=== PATIENT | female | born 1940 | race Caucasian/White ===

== ENCOUNTER → 2023-09-03 12:34 | Outpatient (REF) | payer OTHER, SELFPAY | LOC: WOUND 12:34 | PROVIDERS: ATTENDING PHYSICIAN Surgery; REFERRING PHYSICIAN Family Medicine | DX: S81.812A Laceration without foreign body, left lower leg, initial encounter (principal); L97.822 Non-pressure chronic ulcer of other part of left lower leg with fat layer exposed; J44.9 Chronic obstructive pulmonary disease, unspecified; Z87.891 Personal history of nicotine dependence; R06.89 Other abnormalities of breathing; I10 Essential (primary) hypertension; J47.9 Bronchiectasis, uncomplicated; X58.XXXA Exposure to other specified factors, initial encounter | CPT/HCPCS: 11042; 97597; 99203 ==

== ENCOUNTER → 2023-09-10 08:57 | Outpatient (REF) | payer OTHER, SELFPAY | LOC: WOUND 08:57 | PROVIDERS: ATTENDING PHYSICIAN Surgery; REFERRING PHYSICIAN Family Medicine | DX: L97.822 Non-pressure chronic ulcer of other part of left lower leg with fat layer exposed (principal); S81.812S Laceration without foreign body, left lower leg, sequela; X58.XXXS Exposure to other specified factors, sequela | CPT/HCPCS: 11042 ==

== ENCOUNTER → 2023-09-17 10:35 | Outpatient (REF) | payer OTHER, SELFPAY | LOC: WOUND 10:35 | PROVIDERS: ATTENDING PHYSICIAN Surgery; REFERRING PHYSICIAN Family Medicine | DX: S81.812A Laceration without foreign body, left lower leg, initial encounter (principal); L97.822 Non-pressure chronic ulcer of other part of left lower leg with fat layer exposed; J44.9 Chronic obstructive pulmonary disease, unspecified; Z87.891 Personal history of nicotine dependence; R06.89 Other abnormalities of breathing; I10 Essential (primary) hypertension; J47.9 Bronchiectasis, uncomplicated; X58.XXXA Exposure to other specified factors, initial encounter | CPT/HCPCS: 97597 ==

== ENCOUNTER → 2023-09-20 08:38 | Outpatient (REF) | payer OTHER, SELFPAY | LOC: HWRAD 08:38 | PROVIDERS: ATTENDING PHYSICIAN Nurse Practitioner; FAMILY PHYSICIAN Family Medicine | DX: R82.998 Other abnormal findings in urine (principal) | CPT/HCPCS: 76770 ==

== ENCOUNTER → 2023-09-25 11:55 | Outpatient (REF) | payer OTHER, SELFPAY | LOC: WOUND 11:55 | PROVIDERS: ATTENDING PHYSICIAN Surgery; FAMILY PHYSICIAN Family Medicine | DX: S81.812S Laceration without foreign body, left lower leg, sequela (principal); L97.822 Non-pressure chronic ulcer of other part of left lower leg with fat layer exposed; J44.9 Chronic obstructive pulmonary disease, unspecified; Z87.891 Personal history of nicotine dependence; R06.89 Other abnormalities of breathing; I10 Essential (primary) hypertension; J47.9 Bronchiectasis, uncomplicated | CPT/HCPCS: 99211 ==

== ENCOUNTER → 2023-10-16 13:29 | Outpatient (REF) | payer OTHER, SELFPAY | LOC: RAD 13:29 | PROVIDERS: ATTENDING PHYSICIAN Family Medicine | DX: U07.1 COVID-19 (principal); R06.81 Apnea, not elsewhere classified | CPT/HCPCS: 71046 ==

== ENCOUNTER 2023-10-16 15:21 | Emergency (ER) | payer OTHER, SELFPAY ==
[2023-10-16 15:23] VITALS: BP 181/109
[2023-10-16 15:48] LABS: % Basophils 0.3 % (0-2); % Eosinophils 0.5 % (0-6); % Immature Granulocytes 1.6 % (0-0.5); % Lymphocytes 7.2 % (20.5-51.1); % Neutrophils 78.4 % (42.2-75.2); Absolute Eosinophils 0.1 10^3/uL (0-0.7); Absolute Immature Granulocytes 0.2 10^3/uL (0-0.05); Absolute Lymphocytes 0.7 10^3/uL (1.2-3.4); Absolute Monocytes 1.2 10^3/uL (0.1-0.6); Hematocrit 42.8 % (37.0-47.0); Hemoglobin 14.9 g/dL (12.0-16.0); Mean Corp Hgb Conc. 34.8 g/dL (33.0-37.0); Mean Corpuscular Volume 83.3 fL (81.0-99.0); Mean Platelet Volume 8.5 fL (7.4-10.4); Nucleated Red Blood Cells % 0 %; Platelet Count 184 10^3/uL (130-400); Red Blood Cell Count 5.14 10^6/uL (4.20-5.40); Red Cell Dist. Width 13.5 % (11.5-14.5); White Blood Cell Count 10.1 10^3/uL (4.8-10.8)
[2023-10-16 16:01] LABS: ALT (SGPT) 28 U/L (0-35); AST (SGOT) 37 U/L (14-36); Albumin 4.3 g/dl (3.5-5.0); Alkaline Phosphatase 92 U/L (38-126); Blood Urea Nitrogen 20 mg/dl (7-17); Calcium 9.3 mg/dl (8.4-10.2); Carbon Dioxide 26 mmol/L (22-30); Chloride 100 mmol/L (98-107); Glucose 91 mg/dl (70-99); Potassium 4.2 mmol/L (3.5-5.1); Sodium 131 mmol/L (135-145); Total Bilirubin 0.9 mg/dl (0.2-1.3); Total Protein 6.8 g/dl (6.3-8.2); eGFR > 60.00
[2023-10-16 17:58] VITALS: BP 117/82; BMI 20.4
[2023-10-16 19:00] VITALS: BP 117/87
--- NOTE | 2023-10-16 19:05 | ED.GENMED ---
History of Present Illness
General
Chief Complaint: Breathing Problem
Source: patient and family (Daughter)
Exam Limitations: none
Time Seen by Provider: 10/16/23 18:48
Nursing documentation reviewed up to this point in time: agreed with
Travel History
Have you had any contact with someone who has COVID-19?: Yes
Comment: self
Do you have any symptoms of coronavirus? Fever > 100 degrees, chills, cough, shortness of breath, sore throat, loss of taste or smell, muscle aches, or headache?: Yes
Symptoms:: cough, shortness of breath
History of Present Illness
History of Present Illness:
83-year-old female with a past medical history of COPD, hypertension who presents to the emergency room for evaluation of scalp pain. Patient reports that for the past few days she has noticed some pain in the right side of her scalp. She has
noticed some slight redness on the outside of her scalp as well. She says that she went to her primary care physician to be evaluated and was told that she might be developing shingles. She was prescribed prednisone, gabapentin, Valtrex. While at
her primary care physician she mentioned that she has been fatigued and had mild headache over the past few days. She was tested for COVID and this was positive. Apparently after testing positive they checked her vital signs and she was noted to
have 'irregular heartbeat' and from what I can gather there was some concern about potentially a blood clot for this reason. Meanwhile aside from fatigue and mild headache which patient feels is more likely related to her scalp pain she has not had
any other symptoms including chest pain or shortness of breath at any point in time. She has a chronic cough related to her COPD which has not changed at all she says. She denies palpitations. She denies any other complaints today.
Past History
Past History
ED Past Medical History: COPD
ED Past Surgical History: None and Other (Tubal ligation)
Patient has exhibited threatening behavior?: No
PSI?: No
Social History
Tobacco: Former smoker
Personal: Single
Living: alone
Family History
Family History: Negative Diabetes or CAD
Review of Systems
Review of Systems
All Other Systems: ROS reviewed and negative except as documented in HPI and ROS
Constitutional: Reports fatigue; Denies fever or chills
EENT: Reports other (Scalp pain); Denies sore throat or runny nose
Respiratory: Reports cough (Chronic); Denies trouble breathing
Cardiac: Denies chest pain or palpitations
ABD/GI: Denies abdominal pain, nausea or vomiting
: Denies dysuria, frequency or flank pain
Musculoskeletal: Denies neck pain or back pain
Neurological: Reports headache; Denies weakness or numbness
Phy Exam
Physical Exam
Physical Exam:
General: Awake, alert, oriented x3; no acute distress
Head: Normocephalic, atraumatic; she does have some erythema and slight tenderness of the right side of the scalp but no clear vesicular lesions
Eyes: Conjunctiva normal, EOMI, pupils equal round and reactive to light bilaterally
Throat: Airway intact, handling secretions
Neck: Trachea midline, supple without meningismus
Lungs: Clear to auscultation bilaterally, no wheezing, rales, rhonchi
Heart: Regular rate and rhythm with occasional ectopy, no murmurs, gallops, or rubs�tachycardia in triage noted normal on my assessment
Abd: Soft, non distended, nontender
Neuro: Cranial nerves grossly intact, speech fluid
Skin: no rash
Extremities: No edema in extremities, equal pulses in all extremities
Scores
Heart Failure Risk
Heart Failure Risk Score: Not Applicable
Heart Score for Chest Pain Patients
STEMI patient?: Not applicable
Withdrawal Assessment of Alcohol
Withdrawal Assessment Completed?: Not applicable
Course
Orders/Labs/Results
Orders:
Orders
10/16/23 15:29
Electrocardiogram (*1) Urgent
Reason for Study: Abnormal EKG
EKG- Treatment ONCE
10/16/23 15:40
CBC/With Diff [Complete Blood Count/With Diff] Urgent
CMP [Comprehensive Metabolic Panel] Urgent
Abnormal Lab Results
10/16/23
15:40
Abs Immat Gran (auto) 0.2 H 10^3/uL
(0-0.05)
Absolute Neuts (auto) 8.0 H 10^3/uL
(1.4-6.5)
Absolute Lymphs (auto) 0.7 L 10^3/uL
(1.2-3.4)
Absolute Monos (auto) 1.2 H 10^3/uL
(0.1-0.6)
Immature Gran % 1.6 H %
(0-0.5)
Neutrophils % 78.4 H %
(42.2-75.2)
Lymphocytes % 7.2 L %
(20.5-51.1)
Monocytes % 12.0 H %
(1.7-9.3)
Sodium 131 L mmol/L
(135-145)
BUN 20 H mg/dl
(7-17)
AST 37 H U/L
(14-36)
10/16/23 15:40
10/16/23 15:40
Vital Signs
Temp: 36.7 C
Pulse: 86
Resp Rate: 18
Initial and Last Documented VS:
Initial Vital Signs
Temp Pulse Resp BP Pulse Ox
36.6 C 110 18 181/109 93
10/16/23 15:23 10/16/23 15:23 10/16/23 15:23 10/16/23 15:23 10/16/23 15:23
Last Documented Vital Signs
Temp Pulse Resp BP Pulse Ox
36.7 C 86 18 117/87 91
10/16/23 19:05 10/16/23 19:05 10/16/23 19:05 10/16/23 19:00 10/16/23 19:00
MDM/Problems Addressed
Differential Diagnosis Includes:
Scalp pain: Early shingles, dry skin, hyperesthesia related to viral infection or fever
MDM/Problems Addressed:
83-year-old female presents to the emergency room for evaluation of scalp pain; she was seen by her primary told that she might have early shingles and prescribed appropriate treatment. While she was there she was tested for COVID due to fatigue
and this was positive and there was some concern about an irregular heartbeat which prompted referral to the emergency room for assessment. Patient was hypertensive and tachycardic in triage 'because my doctor told me I was going to from blood
clots.' Her vital signs are completely normal on my assessment. She has no chest pain or shortness of breath. Exam as above. She had lab work sent in triage including a CBC which was unremarkable, CMP which showed mild hyponatremia. Her EKG
shows sinus tachycardia. On a monitoring coordinator on my assessment she is in a sinus rhythm with a rate in the 80s and occasional PACs. Regarding her scalp pain which she says is her only significant complaint: She does have some slight erythema in
the area of concern she has had shingles many times certainly this could be early shingles although there are no clear vesicles. I do think it would be appropriate to treat with Valtrex and use gabapentin as needed for pain. She feels very
comfortable with this treatment plan and it has already been prescribed by her primary doctor. Regarding positive COVID test: Patient has been fatigued at least for 3 days she is minimally symptomatic; at the present no clear indication for
Paxlovid. Her tachycardia could be related to stress/anxiety on initial presentation�it normalized by my assessment. Infection could also be driving some increased heart rate, as well as her as-needed albuterol use. She has no signs or symptoms to
suggest DVT or PE and I do not think any further emergent testing for these diagnoses is indicated at this point in time. I think she is stable for discharge will have her follow-up with her primary doctor to have her scalp reassessed. We did
speak about return precautions including any dizziness, palpitations, chest pain, shortness of breath or any other concerning symptoms. She feels very happy with this plan and in fact requesting discharge at this point. All questions answered.
Chronic conditions affecting care:
COPD
*Pulse Oximetry
Patient hypoxic: no
*EKG
Interpreted by ED Provider?: Yes
Heart Rate: 110
Rate: tachycardiac
Rhythm: sinus tachycardia
Walker: normal axis
Interval: normal interval
QRS Pattern: normal QRS
Ischemia: no ischemia
*Critical Care Note
Total Time (30-74mins, 75-104mins- exclusive of procedures): Not Applicable
Data Reviewed
Source: patient and family (Daughter)
Further Testing Considered But Not Given:
Considered D-dimer but in my judgment no testing for PE indicated that she has no signs or symptoms of this diagnosis
ED Attending Note
-
Portions of this chart may have been created with voice recognition software.� Occasional wrong word or��sound alike� substitutions may have occurred due to the inherent limitations of voice recognition software.
Discharge Plan
Departure
Patient Disposition: Home (Routine Discharge)
Date of Disposition: 10/16/23
Time of Disposition: 19:05
Patient with high blood pressure during this ER visit?: Yes
Discharge Problem:
COVID-19, Scalp pain
Instructions: COVID-19 ED
Prescriptions:
No Action
cephalexin 500 MG capsule
500 mg PO BID Qty: 10 1RF
sulfamethoxazole-trimethoprim 1 TABLET tablet
1 tab PO BID Qty: 10 1RF
furosemide [Lasix] 20 mg tablet
20 mg PO DAILY Qty: 10 1RF
Activity Restrictions/Additional Instructions:
Thank you for visiting the Emergency Department at [facility].
1. Please schedule a follow up appointment as directed. Call first thing tomorrow morning to make an appointment.
2. If indicated, please take your medications as instructed and indicated on discharge paperwork.
3. If any of your symptoms do not improve, or persist, or become more severe within 6-12 hours, please return to the emergency department for further care.
4. Please return to the emergency department if you develop a headache, neck pain/stiffness, fever greater than 100.4F, chest pain, shortness of breath, persistent nausea, vomiting, slurred speech, difficulty walking, numbness/tingling, weakness,
signs of infection or any other symptoms that are worrisome to you.
Please call [phone] if you have any questions.
Interventions
Interventions:
*Risk Screen - Suicide Last Done: 10/16/23 15:28
*General Assessment Last Done: 10/16/23 15:28
*Neglect/Abuse Screening Last Done: 10/16/23 17:59
ED- Fall Risk Assessment Last Done: 10/16/23 17:59
*ED COVID-19 Vaccine History Last Done: 10/16/23 15:28
*Nursing Disposition Last Done: 10/16/23 19:20
ED- Cardiac Assessment Last Done: 10/16/23 17:59
ED- Pulmonary Assessment Last Done: 10/16/23 17:59
Discharge Date and Time
Discharge Date/Time: 10/16/23 19:20
== END 2023-10-16 19:20 | disposition home or self-care (01) ==
LOC: EMR 15:21
PROVIDERS: Emergency Medicine; EMERGENCY PHYSICIAN Emergency Medicine; FAMILY PHYSICIAN Family Medicine
DX: U07.1 COVID-19 (principal); R51.9 Headache, unspecified; J44.9 Chronic obstructive pulmonary disease, unspecified; I10 Essential (primary) hypertension; Z87.891 Personal history of nicotine dependence; E87.1 Hypo-osmolality and hyponatremia
CPT/HCPCS: 99284; 80053; 85025; 93005

== ENCOUNTER 2024-02-16 22:15 | Emergency (ER) | payer OTHER, SELFPAY ==
[2024-02-16 22:18] VITALS: BP 168/118
--- NOTE | 2024-02-16 23:45 | ED.GENMED ---
History of Present Illness
<MALCOM Montague - Last Filed: 02/17/24 01:40>
General
Chief Complaint: Back Pain
Source: patient and family (daughter )
Time Seen by Provider: 02/16/24 23:45
Nursing documentation reviewed up to this point in time: agreed with
History of Present Illness
History of Present Illness:
83 year old female presents for evaluation of back pain. Pt is accompanied by her daughter, who notes that pt suffered a fall on 02/11 at approximately 1800. Pt was getting out of her car when she slipped and fell on loose gravel in a parking lot,
causing her to fall onto her sacrum/coccyx and lower back. She denies injury to her head. Pt was seen at urgent care on 02/12 where XR was performed. 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
fracture of the T12 vertebra. She was given a prescription for lidocaine patches as well as Naproxen 375 mg BID. These have not provided pain relief per pt. Pt then followed up with her PCP the following day on 02/13, where she was given a
prescription for cyclobenzaprine which has also not provided pain relief. Pt has a history of osteoporosis managed by her PCP. No history of falls. Pt has a walker and cane at home but has not been utilizing them.
Past History
<MALCOM Montague - Last Filed: 02/17/24 01:40>
Past History
ED Past Medical History: COPD
ED Past Surgical History: None and Other (Tubal ligation)
Patient has exhibited threatening behavior?: No
PSI?: No
Social History
Tobacco: Former smoker
Personal: Single
Living: alone
Family History
Family History: Negative Diabetes or CAD
Review of Systems
<MALCOM Montague - Last Filed: 02/17/24 01:40>
Review of Systems
Allergies reviewed?: Yes
Constitutional: Reports no symptoms
EENT: Reports no symptoms
Respiratory: Reports no symptoms
Cardiac: Reports no symptoms
ABD/GI: Reports no symptoms
: Reports no symptoms
Musculoskeletal: Reports back pain (low back)
Skin: Reports no symptoms
Neurological: Reports no symptoms
Endocrine: Reports no symptoms
Hematologic/Lymphatic: Reports no symptoms
Psychiatric: Reports no symptoms
Phy Exam
<MALCOM Montague - Last Filed: 02/17/24 01:40>
General Physical Exam
General Presentation: well appearing
General age: appears stated age
General Skin: warm
General Habitus: elderly
General Mental: alert
General Hydration: appears well hydrated
Cardiovascular Exam
Cardiovascular Exam: regular rate/rhythm
Pulmonary Exam
Pulmonary Exam: lungs clear and no respiratory distress
Neurological Exam
Neurological Exam: alert, oriented x3, no motor deficits and no sensory deficits
Musculoskeletal Exam
Musculoskeletal Exam: back pain, back tenderness (T12-L4 tenderness and tenderness of paraspinal musculature ), neuro vasc intact and other (pain with flexion and extension of lower thoracic and lumbar spine )
Course
<Robinson Aguirre [facility] - Last Filed: 02/17/24 01:40>
Orders/Labs/Results
Orders:
Orders
02/17/24 00:26
Hydrocodone 5/APAP 325 [Burket 5/325] 1 tablet PO NOW STA
Vital Signs
Initial and Last Documented VS:
Initial Vital Signs
Temp Pulse Resp BP Pulse Ox
98.8 F 84 24 168/118 98
02/16/24 22:18 02/16/24 22:18 02/16/24 22:18 02/16/24 22:18 02/16/24 22:18
Last Documented Vital Signs
Temp Pulse Resp BP Pulse Ox
98.8 F 84 24 168/118 98
02/16/24 22:18 02/16/24 22:18 02/16/24 22:18 02/16/24 22:18 02/16/24 22:18
<Namita Back DO - Last Filed: 02/17/24 02:00>
Orders/Labs/Results
Orders:
Orders
02/17/24 00:26
Hydrocodone 5/APAP 325 [Burket 5/325] 1 tablet PO NOW STA
Vital Signs
Initial and Last Documented VS:
Initial Vital Signs
Temp Pulse Resp BP Pulse Ox
98.8 F 84 24 168/118 98
02/16/24 22:18 02/16/24 22:18 02/16/24 22:18 02/16/24 22:18 02/16/24 22:18
Last Documented Vital Signs
Temp Pulse Resp BP Pulse Ox
98.8 F 84 24 168/118 98
02/16/24 22:18 02/16/24 22:18 02/16/24 22:18 02/16/24 22:18 02/16/24 22:18
<MALCOM Montague - Last Filed: 02/17/24 01:40>
MDM/Problems Addressed
Differential Diagnosis Includes:
vertebral fracture, lumbar paraspinal muscle strain
<Namita Back DO - Last Filed: 02/17/24 02:00>
*Radiology
Radiology exam reviewed: radiology read reviewed (Lumbar spine film from February 12 reviewed. DEXA scan from April 2023 reviewed.)
*Pulse Oximetry
Patient hypoxic: no
*Critical Care Note
Total Time (30-74mins, 75-104mins- exclusive of procedures): Not Applicable
<MALCOM Montague - Last Filed: 02/17/24 01:40>
Update Note
Update Note:
0140 - pt endorses pain relief on Vicodin, pain currently 09/21.
ED Attending Note
<MALCOM Montague - Last Filed: 02/17/24 01:40>
-
Portions of this chart may have been created with voice recognition software.� Occasional wrong word or��sound alike� substitutions may have occurred due to the inherent limitations of voice recognition software.
<Namita Back DO - Last Filed: 02/17/24 02:00>
ED Attending Note
Patient seen and examined by attending physician: Yes
I performed the substantive portion of visit, reviewed & personally made and approve the management plan that is documented in note by myself or KALEB.: Yes
ED Attending Note:
This is an 83-year-old quite spry woman who lives at home independently, continues to drive who slipped on gravel while getting out of her car landing on her buttocks February 11. She noted immediate low back pain, nonradiating and was evaluated at
urgent care the following day, February 12 and underwent lumbar spine x-rays with initial, preliminary interpretation reportedly negative. She was prescribed naproxen 375 mg twice daily as well as lidocaine patch which she has been using.
She then followed up with her primary care physician the following day, February 13 and was prescribed Flexeril which she has been taking at bedtime.
Despite these medications she continues with significant low back pain, occasional spasms of pain left low back but no radiation down her legs, no weakness or numbness, no difficulty moving her bowels or bladder. Pain is much worse when she
attempts to get up or roll over.
She has been sleeping on her couch since incident and does note that her couch is much firmer than her bed and it is easier for her to get up and about from the couch than her bed.
Lumbar spine films from February 12�official report reveals an age-indeterminate T12 compression fracture as well as old compression fractures of L2 as well as T10.
DEXA scan April 2023 shows significant osteoporosis with marked progression of osteoporosis compared to previous imaging.
83-year-old woman appears younger than stated age, bright and alert, pleasant, appears in no acute distress. Lying [employer] on stretcher. Daughter is accompanying.
HEENT: The head is normocephalic, atraumatic. Oral mucosa is moist.
Neck is supple, nontender, full range of motion without difficulty nor pain.
Heart is regular rate and rhythm.
Lungs are clear to auscultation, respirations are easy nonlabored.
Abdomen is soft and nontender.
Back: Moderate tenderness proximal to mid lumbar spine with mild paravertebral muscle spasm left lumbar region. Straight leg raising mildly positive bilaterally.
Extremities: No clubbing or cyanosis or edema. Peripheral pulses are full and equal. Nontender.
Neuro: Awake alert and oriented x 3. No focal neurodeficits. Motor strength is 5/5 bilaterally. Gross sensation is intact.
Skin: Warm and dry, normal color. Good turgor.
I suspect T12 compression fracture is new and cause for her acute low back pain.
Reassuring that there is no radicular signs or symptoms, no difficulty moving her bowels or bladder.
Recommend continuing NSAID, topical lidocaine patch, will add short course of opioid medication and will trial a dose of Vicodin.
Patient does have a cane and a walker at home, has not been using these but recommend she initiate walker when ambulating to assist with safety and prevention of recurrent falls especially while taking an opioid medication.
Will ultimately require prompt follow-up with PCP and recommend ortho-spine evaluation as well.
02/17/2024 01:45 AM
Patient reassessed, feeling markedly improved, resting comfortably and admits that 'this is the best that she has felt in the past several days'
Low back pain has not completely resolved but she is able to move about much more freely, reposition much more freely.
Will discharge to home with prescription for short course of Vicodin.
Recommend initiation of stool softener, fiber supplement on a daily basis while taking narcotic.
Also recommend she utilize her walker with ambulation to assist with steadiness and fall prevention.
Prompt follow-up with PCP and recommend ortho-spine evaluation as well.
Return precautions discussed.
Discharge Plan
Departure
Patient Disposition: Home (Routine Discharge)
Date of Disposition: 02/17/24
Time of Disposition: 01:53
Patient with high blood pressure during this ER visit?: Yes
Condition: Good
Discharge Problem:
Traumatic compression fracture of T12 thoracic vertebra
Instructions: Vertebral Compression Fracture (DC), Osteoporosis (DC)
Prescriptions:
New
hydrocodone-acetaminophen 5-300 mg tablet
1 tab PO Q8H PRN (Reason: Pain) Qty: 20 0RF
No Action
cephalexin 500 MG capsule
500 mg PO BID Qty: 10 1RF
sulfamethoxazole-trimethoprim 1 TABLET tablet
1 tab PO BID Qty: 10 1RF
furosemide [Lasix] 20 mg tablet
20 mg PO DAILY Qty: 10 1RF
Referrals:
Zee Garland DO [Family Provider] - Follow up in 2-3 days
Osmany Conklin MD [Active] - Call in 1-3 days for appt
Interventions
Interventions:
*Risk Screen - Suicide Last Done: 02/16/24 22:18
*General Assessment Last Done: 02/17/24 00:18
*Neglect/Abuse Screening Last Done: 02/16/24 22:18
*ED COVID-19 Vaccine History Last Done: 02/17/24 00:18
ED-Musculoskeletal Assessment Last Done: 02/17/24 00:18
Discharge Date and Time
Print Language: ZAMBIAN
[2024-02-17] MEDS: NORCO 5/325 1 TABLET PO (00:53)
[2024-02-17 02:10] VITALS: BP 154/90
== END 2024-02-17 02:12 | disposition home or self-care (01) ==
LOC: EMR 22:15
PROVIDERS: EMERGENCY PHYSICIAN Emergency Medicine; FAMILY PHYSICIAN Family Medicine
DX: S22.080A Wedge compression fracture of T11-T12 vertebra, initial encounter for closed fracture (principal); W01.0XXA Fall on same level from slipping, tripping and stumbling without subsequent striking against object, initial encounter; Y92.481 Parking lot as the place of occurrence of the external cause; M54.9 Dorsalgia, unspecified; J44.9 Chronic obstructive pulmonary disease, unspecified; Z87.891 Personal history of nicotine dependence; Z98.51 Tubal ligation status
CPT/HCPCS: 99282

== ENCOUNTER 2024-02-25 15:23 | Inpatient (IN) | payer OTHER, SELFPAY ==
[2024-02-25] VITALS (10 sets, daily range): BP systolic 131–145; BP diastolic 84–101; BMI 18.8
--- NOTE | 2024-02-25 12:15 | ED.GENMED ---
History of Present Illness
General
Chief Complaint: Musculo-Skeletal Complaint
Time Seen by Provider: 02/25/24 12:07
History of Present Illness
History of Present Illness:
83-year-old female presents the emergency department for evaluation after a ground-level fall. She is currently undergoing in-home rehab after suffering a T12 compression fracture approximately 2 weeks ago. She was attempting to do self rehab
prior to arrival of her therapist today when she fell. Her daughter endorses that her appetite has been poor since starting on opiate pain medications. She has been profoundly weak as well. She resides at home alone, does not typically use any
assistive devices for ambulation.
Past History
Past History
ED Past Medical History: COPD
ED Past Surgical History: None and Other (Tubal ligation)
Patient has exhibited threatening behavior?: No
PSI?: No
Social History
Tobacco: Former smoker
Personal: Single
Living: alone
Family History
Family History: Negative Diabetes or CAD
Review of Systems
Review of Systems
Allergies reviewed?: Yes
All Other Systems: ROS reviewed and negative except as documented in HPI and ROS
Phy Exam
Physical Exam
Physical Exam:
GEN: Well appearing, NAD, WDWN
HEENT: Oral mucosa moist, no scleral icterus
Cardiac: Regular rate
Lung: No respiratory distress, no tachypnea
MSK: Swelling and mild deformity to the right upper arm, range of motion restricted due to pain, no clavicle deformities
Skin: Good color, no pallor or jaundice, no rashes
Neuro: AO x3, moves all extremities freely
Psych: Calm, cooperative
Course
Orders/Labs/Results
Orders:
Orders
02/25/24 Breakfast
Regular
At Your Request: Limited, Glove Cuffer Required
02/25/24 12:20
Urinalysis Reflex To Culture Urgent
Date Specimen was Collected: 02/25/24
Time Specimen was Collected: 12:42
CR Humerus - Right Min 2 View* Urgent
Comment:
Reason For Exam: fall
CR Lumbar Spine Comp Min 4 Vw* Urgent
Comment:
Reason For Exam: fall
02/25/24 12:55
Complete Blood Count/With Diff Urgent
Comprehensive Metabolic Panel Urgent
Serum Osmolality Urgent
Comment: SERUM OSMOLALITY ADDED ON BY FLOOR 1:30PM 02-25-24
02/25/24 13:36
Add On- LAB Urgent
Tests Added?: serum osmolality
0.9% Sodium Chloride 500 ml [Nss] 500 ml IV BOLUS
02/25/24 13:52
Morphine Sulfate 2 mg IV NOW STA
02/25/24 14:55
Admit/Transfer Patient As Directed
Co-Sign Provider:
Level of Care: Inpatient admission
Assign to:: Medical/Surgical
Physician / Group: zane
Diagnosis: humerus fracture
Reason for Hospitalization: humerus fracture
Expected length of stay greater than two midnights?: Yes
ELOS- Estimated Length of Stay in days: 3
I certify the patient meets the requirements for IP care: Yes
02/25/24 14:56
PRN Pain Medication Management As Directed
May give lesser potent ordered pain med per pt: No
preference::
Protocol:: Medication orders for pain may NOT be administered in
a manner that defers to patient preference. Follow
all order instructions as written.
Contact provider if ordering parameters for pain need
to be adjusted.
02/25/24 14:58
Code Status As Directed
Resuscitation Status: Full Code
02/25/24 16:25
Urine Sodium Urgent
Date Specimen was Collected: 02/25/24
Time Specimen was Collected: 14:21
02/25/24 16:31
NEPHROLOGY CONSULT Routine
Consulting Provider: Keyla Serrato
Was physician already notified: Yes
02/25/24 17:33
Acetaminophen [Tylenol] 650 mg PO Q4HWA
HYDROmorphone [Dilaudid] 0.5 mg IV Q6HPRN PRN
Lidocaine [Lidocaine 4% Patch] 1 patch TOPICAL DAILY
Apply Lidocaine patch(s) to:: lower back
Magnesium Hydroxide [Milk of Magnesia] 30 ml PO DAILYPRN PRN
Oxycodone [Roxicodone] 5 mg PO Q4HPRN PRN
Tamsulosin [Flomax] 0.4 mg PO DAILYPRN PRN
02/25/24 17:33
ORTHOPEDIC CONSULT Routine
Consulting Provider: Deric Keyes
Was physician already notified: Yes
Activity As Directed
Activity Level: As Tolerated
Bladder Scan As Directed
Follow Bladder Retention/Intermittent Cath Algorithm?: Yes
PRN if no void in __ hours: 6
Comment: if not voiding 6 hrs upon arrival to floor, bladder scan & follow algorithm
Intake/ Output As Directed
Frequency: Per unit guidelines
Straight Cath As Directed
Frequency: Per Retention Algorithm
Additional Instructions: straight cath as needed per acute urinary retention algorithm for 24 hrs
Additional Instructions: for bladder scan greater than 400 mL
Venous Foot Pumps As Directed
Location: Bilateral feet
Vital Signs As Directed
Frequency: Per unit guidelines
Ot Eval And Treat Routine
Pt Eval And Treat Routine
Activity Level: As Tolerated
DX Deep Vein Thrombosis Video Routine
02/25/24 20:00
Calcium Carbonate/Vitamin D3 [Oscal 500 + D] 500 mg PO BID
Cholecalciferol (Vitamin D3) [VITAMIN D3 (cholecalciferol)] 50 mcg PO BID
Docusate Sodium [Colace] 100 mg PO BID
Duloxetine Delayed Release [Cymbalta Delayed Release] 20 mg PO BID
Sennosides [Senokot] 17.2 mg PO BID
Vit C/Vit E/Lutein/Min/[place]-3 [Ocuvite Softgel] 1 cap PO BID
glucosamine mancia 2KCl-chondroit [Glucosamine-Chondroitin 3X Str] 1 tablet PO BID
02/25/24 22:00
Pyridoxine [Vitamin B-6] 100 mg PO HS
02/26/24 06:00
BMP [Basic Metabolic Panel] IN AM
CBC/No Diff [Complete Blood Count/No Diff] IN AM
02/26/24 08:00
Cyanocobalamin [Vitamin B-12] 500 mcg PO DAILY
Donepezil HCl [Aricept] 10 mg PO DAILY
Lisinopril [Zestril] 10 mg PO DAILY
02/27/24 06:00
BMP [Basic Metabolic Panel] IN AM
CBC/No Diff [Complete Blood Count/No Diff] IN AM
02/28/24 06:00
BMP [Basic Metabolic Panel] IN AM
CBC/No Diff [Complete Blood Count/No Diff] IN AM
02/29/24 06:00
BMP [Basic Metabolic Panel] IN AM
CBC/No Diff [Complete Blood Count/No Diff] IN AM
03/01/24 06:00
BMP [Basic Metabolic Panel] IN AM
CBC/No Diff [Complete Blood Count/No Diff] IN AM
Abnormal Lab Results
02/25/24
12:55
WBC 14.1 H 10^3/uL
(4.8-10.8)
RBC 5.57 H 10^6/uL
(4.20-5.40)
Hgb 16.4 H g/dL
(12.0-16.0)
Abs Immat Gran (auto) 0.1 H 10^3/uL
(0-0.05)
Absolute Neuts (auto) 12.4 H 10^3/uL
(1.4-6.5)
Absolute Lymphs (auto) 0.5 L 10^3/uL
(1.2-3.4)
Absolute Monos (auto) 1.0 H 10^3/uL
(0.1-0.6)
Immature Gran % 0.8 H %
(0-0.5)
Neutrophils % 88.2 H %
(42.2-75.2)
Lymphocytes % 3.5 L %
(20.5-51.1)
Sodium 126 L mmol/L
(135-145)
Chloride 89 L mmol/L
(98-107)
BUN 39 H mg/dl
(7-17)
Calcium 10.3 H mg/dl
(8.4-10.2)
02/25/24 12:55
02/25/24 12:55
Vital Signs
Initial and Last Documented VS:
Initial Vital Signs
Temp Pulse Resp BP Pulse Ox
97.8 F 59 16 145/91 94
02/25/24 11:18 02/25/24 11:18 02/25/24 11:18 02/25/24 11:18 02/25/24 11:18
Last Documented Vital Signs
Temp Pulse Resp BP Pulse Ox
98.2 F 81 16 135/92 94
02/25/24 17:35 02/25/24 17:35 02/25/24 17:35 02/25/24 17:35 02/25/24 17:35
MDM/Problems Addressed
MDM/Problems Addressed:
83 yo female presents after a fall, found to have a proximal humerus fx. Fall and weakness likely on the basis of hyponatremia, will admit for further eval/management
*Critical Care Note
Total Time (30-74mins, 75-104mins- exclusive of procedures): Not Applicable
ED Attending Note
-
Portions of this chart may have been created with voice recognition software.� Occasional wrong word or��sound alike� substitutions may have occurred due to the inherent limitations of voice recognition software.
Discharge Plan
Departure
Patient Disposition: Admit
Date of Disposition: 02/25/24
Time of Disposition: 14:03
Admit to: Med/Surg
Presentation/result/management discussed w/ accepting MD/DO: Hospitalist
Discharge Problem:
Acute hyponatremia, Closed fracture of right proximal humerus
Interventions
Interventions:
*Risk Screen - Suicide Last Done: 02/25/24 17:36
*General Assessment Last Done: 02/25/24 11:18
*Neglect/Abuse Screening Last Done: 02/25/24 11:18
*Nursing Disposition Last Done: 02/25/24 17:17
ED-Musculoskeletal Assessment Last Done: 02/25/24 12:45
Discharge Date and Time
Discharge Date/Time: 02/25/24 17:19
[2024-02-25 13:18] LABS: % Basophils 0.4 % (0-2); % Eosinophils 0.1 % (0-6); % Immature Granulocytes 0.8 % (0-0.5); % Lymphocytes 3.5 % (20.5-51.1); % Neutrophils 88.2 % (42.2-75.2); Absolute Basophils 0.1 10^3/uL (0-0.2); Absolute Immature Granulocytes 0.1 10^3/uL (0-0.05); Absolute Lymphocytes 0.5 10^3/uL (1.2-3.4); Absolute Neutrophils 12.4 10^3/uL (1.4-6.5); Hematocrit 45.4 % (37.0-47.0); Hemoglobin 16.4 g/dL (12.0-16.0); Mean Corp Hgb Conc. 36.1 g/dL (33.0-37.0); Mean Corpuscular Hgb 29.4 pg (27.0-31.0); Mean Corpuscular Volume 81.5 fL (81.0-99.0); Mean Platelet Volume 9.3 fL (7.4-10.4); Nucleated Red Blood Cells % 0 %; Platelet Count 200 10^3/uL (130-400); Red Blood Cell Count 5.57 10^6/uL (4.20-5.40); White Blood Cell Count 14.1 10^3/uL (4.8-10.8)
[2024-02-25 13:35] LABS: ALT (SGPT) 20 U/L (0-35); AST (SGOT) 30 U/L (14-36); Albumin 4.6 g/dl (3.5-5.0); Alkaline Phosphatase 95 U/L (38-126); Blood Urea Nitrogen 39 mg/dl (7-17); Calcium 10.3 mg/dl (8.4-10.2); Carbon Dioxide 23 mmol/L (22-30); Chloride 89 mmol/L (98-107); Estimated Creatinine Clearance 46 ml/min; Glucose 86 mg/dl (70-99); Potassium 4.4 mmol/L (3.5-5.1); Sodium 126 mmol/L (135-145); Total Bilirubin 1.3 mg/dl (0.2-1.3); Total Protein 6.7 g/dl (6.3-8.2); eGFR > 60.00
[2024-02-25] MEDS: NSS 500 IV (13:58)
[2024-02-25] MEDS: MORPHINE SULFATE 2 MG IV (13:59)
[2024-02-25 14:17] LABS: Osmolality Serum 279 mOsm/kg (275-300)
--- NOTE | 2024-02-25 14:21 | HPS.HSE ---
Family Physician
-
Family Physician: Zee Garland
Chief Complaint
-
fall
History of Present Illness
83-year-old female with PMH for COPD, hyponatremia, depression, HTN presented to us with after a ground-level fall. She is currently undergoing in-home rehab after suffering a T12 compression fracture approximately 2 weeks ago. She was attempting
to do self rehab prior to arrival of her therapist today when she fell. she fell from a standing position. patient denied dizzy, lightheaded or poor balance. Her daughter endorses that her appetite has been poor since starting on opiate pain
medications. she has not eaten food for 5 days. she fells nauseous with any fluid intake as well. She has been profoundly weak as well. She resides at home alone, does not typically use any assistive devices for ambulation. Patient denies any
fever, chills, chest pain, short of breath. Patient denies any abdominal pain, nausea, vomiting, diarrhea. Patient denies dysuria hematuria.
Impacted fracture through the region of the surgical neck of the right proximal humerus
Patient received morphine, normal saline in the ER. Admitting for further management
Medical History
Past Medical History
Past Medical History: Reports Other
Additional Past Medical History:
Hyperlipidemia
COPD
Hypertension
Macular degeneration
Impingement syndrome
Centrilobular emphysema
Bronchiectasis
Past Surgical History: Reports Other
Additional Past Surgical History:
Bilateral tubal ligation
Tonsillectomy
Social History
Tobacco: Former Smoker
Alcohol: None
Drug: None
Personal: Single
Living: Alone
Family History
Family History: Not pertinent
Allergies / Home Medications
Allergies reflects when Allergies were last updated in [facility].
Home Medications with original date entered in [employer]
Allergy/Medication List:
Allergies
Allergy/AdvReac Type Severity Reaction Status Date / Time
Penicillins Allergy Rash Verified 02/16/24 22:20
Home Medications
calcium carbonate 600 mg-vitamin D3 5 mcg (200 unit) tablet 1 tab PO BID 02/25/24
cholecalciferol (vitamin D3) 50 mcg (2,000 unit) tablet (Vitamin D3) 50 mcg PO BID 02/25/24
cyanocobalamin (vitamin B-12) 500 mcg tablet 500 mcg PO DAILY 02/25/24
donepezil 10 mg tablet 10 mg PO DAILY 02/25/24
duloxetine 20 mg capsule,delayed release 20 mg PO BID 02/25/24
fluticasone fur. 200 mcg-umeclid 62.5 mcg-vilant 25 mcg inhalat.powder (Trelegy Ellipta) 1 inh inhalation R DAILY 02/25/24
glucosamine sulf dipotassium Cl 750 mg-chondroitin sulf 600 mg tablet (Glucosamine-Chondroitin 3X Triple Strength) 1 tab PO BID 02/25/24
hydrocodone 5 mg-acetaminophen 300 mg tablet 1 tab PO Q8H 02/25/24
lisinopril 10 mg tablet 10 mg PO DAILY 02/25/24
pyridoxine (vitamin B6) 100 mg tablet 100 mg PO HS 02/25/24
vit C 250 mg-vit E 90 mg-zinc 40 mg-copper 1 [id number] capsule (PreserVision AREDS-2) 1 tab PO BID 02/25/24
Review of Systems
-
Constitutional: Reports No Symptoms
EENT: Reports No Symptoms
Respiratory: Reports No Symptoms
Cardiac: Reports No Symptoms
Abdomen/GI: Reports No Symptoms
: Reports No Symptoms
Musculoskeletal: Reports No Symptoms
Skin: Reports No Symptoms
Neurological: Reports No Symptoms
Endocrine: Reports No Symptoms
Hematologic/Lymphatic: Reports No Symptoms
Psych: Reports No Symptoms
Physical Exam
Vital Signs
Vital Signs
Temp Pulse Resp BP Pulse Ox
97.8 F 59 16 145/91 92
02/25/24 11:18 02/25/24 11:18 02/25/24 11:18 02/25/24 11:18 02/25/24 11:45
Physical Exam
General: Well Developed, Well Nourished and No Apparent Distress
HEENT: NormoCephalic, Moist mucous membranes and Atraumatic
Respiratory: Clear
Cardiac: S1/S2 and Regular Rhythm; No Murmur or Rub
GI: Soft, Non Tender, Non Distended and Normal Bowel Sounds; No Organomegaly
Rectal: Deferred by Provider
Musculoskeletal: No Clubbing, No Cyanosis and Other (Right upper arm)
Skin: No Rash
Neuro: AO x 3 and Nonfocal/grossly intact
Psych: Calm
Laboratory Results
-
02/25/24 12:55
02/25/24 12:55
Laboratory Results
Total Bilirubin 1.3 mg/dl (0.2-1.3) 02/25/24 12:55
AST 30 U/L (14-36) 02/25/24 12:55
ALT 20 U/L (0-35) 02/25/24 12:55
Alkaline Phosphatase 95 U/L (38-126) 02/25/24 12:55
Data Reviewed
-
Diagnostic Radiology: Report Reviewed by me
Lab Data: Labs Reviewed by me
Impression/Plan
-
# Acute on chronic hyponatremia likely from poor oral intake
-Sodium 126
-pending urine sodium and serum osmolality
-Received 1 L normal saline in the ER
-Nephrology consulted
#Fatigue, weakness due to poor oral intake
-Nutrition consult
-PT/OT consult
# Right proximal humerus fracture status post fall
-Orthopedic consulted
-X-ray with Impacted fracture through the region of the surgical neck of the right proximal humerus.
-Oxycodone as needed for pain
-Lidocaine patch for back
Dilaudid for breakthrough pain
-Hold Vicodin
# Leukocytosis likely stress reaction
-WBC 14.1
-Urinalysis pending
# History of COPD
-Patient is not in exacerbation
-Trelegy continued
# Essential hypertension
-Lisinopril continued
# DVT prophylaxis
-SCD
# CODE STATUS
-Full code
--- NOTE | 2024-02-25 15:30 | W.PN.UPDATE ---
Update Note
Progress Note Update
This note serves as an addendum to the H&P by ANGELA Young, on February 25, 2024.
History of Presenting Illness
83-year-old female with past medical history for COPD, hyponatremia, depression and hypertension presented after a ground-level fall. She is currently undergoing in-home rehab after suffering a T12 compression fracture approximately 2 weeks ago
following a fall. She was attempting to do self rehab prior to arrival of her therapist today when she fell. She fell from a standing position and denied loss of consciousness, dizziness, lightheadedness or poor balance. Her daughter endorses that
her appetite has been poor since starting on opiate pain medications and Cymbalta. She has not eaten food or had enough fluid to drink for 5 days. She has been profoundly weak as well. She resides at home alone, does not typically use any assistive
devices for ambulation.
Vital Signs
Afebrile
BP, HR, RR okay
Oxygen saturation in the 90s on room air
Physical Exam
General: Not in acute distress
HEENT: Normocephalic
Respiratory: Clear to Auscultation Bilaterally
Cardiac: S1/S2 and Regular Rhythm
GI: Soft, Non Tender, Non Distended and Normal Bowel Sounds
Musculoskeletal: No Cyanosis and Other (Right upper arm)
Skin: Warm. Dry.
Neuro: AAO x 3 and Nonfocal/grossly intact
Psych: Calm
Assessment/Plan
# Acute on chronic hyponatremia likely from poor oral intake
-Sodium 126
-pending urine sodium and serum osmolality
-Received 1 L normal saline in the ER
-Nephrology consulted, recommendations appreciated
#Fatigue, weakness due to poor oral intake
-Nutrition consult
-PT/OT consult
# Right proximal humerus fracture status post fall
-Orthopedic consulted
-X-ray with Impacted fracture through the region of the surgical neck of the right proximal humerus.
-Oxycodone as needed for pain
-Lidocaine patch for back
Dilaudid for breakthrough pain
-Hold Vicodin
# Leukocytosis likely stress reaction
-WBC 14.1
-Urinalysis pending
# Grief, Depression
# Decreased Appetite, with poor PO intake
-Patient was prescribed Cymbalta recently, her son earlier this year
-Daughter mentioned Cymbalta may be causing patient some nausea
# History of COPD
-Patient is not in exacerbation
-Trelegy continued
# Essential hypertension
-Lisinopril continued
# DVT prophylaxis
-SCDs
# CODE STATUS
-Full code
--- NOTE | 2024-02-25 16:26 | W.CON.NEPH ---
Consultation
-
Date/Time Consultation Requested: 02/25/2024 2:55PM
Date/Time Consultation Performed: 02/25/2024 4:27PM
Requesting Provider: Abdi Rivero
Performing Provider: Keyla Serrato
Reason for Consultation: hyponatremia
Medical History
-
Chief Complaint: hyponatremia
History of Present Illness:
Ms. Villagomez is an 83 YOF with PMH of COPD, hyponatremia, depression, HTN, osteoporosis who presents after a fall. She had a fall on February 11 where she landed on her back. She was found to have a T12 compression fracture. She was taking naproxen for
this. She was attempting to walk prior to her PT's arrival today when she fell again and was found to have a fracture of her R humerus. She denies any lightheadedness or dizziness. States that this was a mechanical fall. Of note, she has had minimal
intake since Saturday because she was started on Cymbalta and developed significant nausea.
She has had trouble with hyponatremia in the past. Her daughter states that about 2 years ago, she was on salt tabs for a little. Her sodium was also low in September. It was noted to be 126 back then as well.
Past Medical History
Past Medical History: COPD, HTN, Hypercholesterolemia and Other (Macular degeneration Impingement syndrome Centrilobular emphysema Bronchiectasis)
Past Surgical History: Other (Bilateral tubal ligation Tonsillectomy)
Social History
Tobacco: Former Smoker
Alcohol: None
Drug: None
Living: Alone
Family History
Family History: Not Pertinent
Allergies / Home Medications
Allergy/AdvReac Type Severity Reaction Status Date / Time
Penicillins Allergy Rash Verified 02/16/24 22:20
�Medication �Instructions �Recorded �Confirmed �Type
calcium carbonate 600 mg-vitamin 1 tab PO BID Supplement 02/25/24 02/25/24 History
D3 5 mcg (200 unit) tablet
cholecalciferol (vitamin D3) 50 50 mcg PO BID Supplement 02/25/24 02/25/24 History
mcg (2,000 unit) tablet (Vitamin
D3)
cyanocobalamin (vitamin B-12) 500 500 mcg PO DAILY Supplement 02/25/24 02/25/24 History
mcg tablet
donepezil 10 mg tablet 10 mg PO DAILY Neurological 02/25/24 02/25/24 History
Condition
duloxetine 20 mg capsule,delayed 20 mg PO BID Mental Health 02/25/24 02/25/24 History
release
fluticasone fur. 200 mcg-umeclid 1 inh inhalation R DAILY 02/25/24 02/25/24 History
62.5 mcg-vilant 25 mcg Lung/Breathing Issues
inhalat.powder (Trelegy Ellipta)
glucosamine sulf dipotassium Cl 1 tab PO BID Supplement 02/25/24 02/25/24 History
750 mg-chondroitin sulf 600 mg
tablet (Glucosamine-Chondroitin 3X
Triple Strength)
hydrocodone 5 mg-acetaminophen 300 1 tab PO Q8 Pain 02/25/24 02/25/24 History
mg tablet
lisinopril 10 mg tablet 10 mg PO DAILY Blood Pressure 02/25/24 02/25/24 History
pyridoxine (vitamin B6) 100 mg 100 mg PO HS Supplement 02/25/24 02/25/24 History
tablet
vit C 250 mg-vit E 90 mg-zinc 40 1 tab PO BID Supplement 02/25/24 02/25/24 History
mg-copper 1 [id number]
capsule (PreserVision AREDS-2)
Review of Systems
-
History Source: Patient and Family
All other systems: Negative unless noted
Musculoskeletal: Other (back pain, shoulder pain)
Neurological: Weakness
Physical Exam
Vital Signs
Vital Signs
Temp Pulse Resp BP Pulse Ox
97.8 F 59 16 137/90 93
02/25/24 11:18 02/25/24 11:18 02/25/24 11:18 02/25/24 15:00 02/25/24 15:00
Lab Results
WBC 14.1 10^3/uL (4.8-10.8) H 02/25/24 12:55
RBC 5.57 10^6/uL (4.20-5.40) H 02/25/24 12:55
Hgb 16.4 g/dL (12.0-16.0) H 02/25/24 12:55
Hct 45.4 % (37.0-47.0) 02/25/24 12:55
Plt Count 200 10^3/uL (130-400) 02/25/24 12:55
Sodium 126 mmol/L (135-145) L 02/25/24 12:55
Potassium 4.4 mmol/L (3.5-5.1) 02/25/24 12:55
Chloride 89 mmol/L (98-107) L 02/25/24 12:55
Carbon Dioxide 23 mmol/L (22-30) 02/25/24 12:55
BUN 39 mg/dl (7-17) H 02/25/24 12:55
Creatinine 0.8 mg/dL (0.6-1.0) 02/25/24 12:55
eGFR > 60.00 02/25/24 12:55
Glucose 86 mg/dl (70-99) 02/25/24 12:55
Calcium 10.3 mg/dl (8.4-10.2) H 02/25/24 12:55
Albumin 4.6 g/dl (3.5-5.0) 02/25/24 12:55
Physical Exam
General: AOx3, No Distress and Nontoxic
HEENT: PERRL, EOMI, Anicteric, Conjunctivae Clear, Ear/Nose Intact, Oropharynx Clear/Moist, Dentition Intact, Facial Symmetry, Neck Supple and Other (CAMPO)
Respiratory: Clear
Cardiac: S1/S2, Regular Rate/Rhythm and No Edema
Breast: Deferred by me
Abdomen: Soft, Nontender, Nondistended, Normal Bowel Sounds and No Hepatosplenomegaly
Rectal: Deferred by Provider
Genito-urinary: Clear Urine
Musculoskeletal: No Clubbing, No Cyanosis and No Edema
Skin: No Rash, Warm, Dry, No Clubbing, No Cyanosis, Normal Turgor and No Bruising
Neuro: Nonfocal/Grossly Intact
Hematologic/Lymphatic: No Cervical Lymphadenopathy
Psych: Mood/afflect pleasant, Insight/judgement good and Appropriate
Data Reviewed
-
Radiology: Image Personally Visualized and interpreted (fracture of the humerus)
Labs: Labs Reviewed by me
Old Records: Reviewed
Assessment/Plan
-
Assessment:
hyponatremia
humeral fracture
recurrent falls
weakness
Plan:
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
hold further normal saline
hold duloxetine
prior urine studies indicative of SIADH
current urine osm and urine sodium pending
initiate HTS at 15cc/hr
trend sodium q6h
goal sodium of 130+ by tomorrow
[2024-02-25] MEDS: SODIUM CHLORIDE 3% 250 IV (17:00)
[2024-02-25] MEDS: LIDOCAINE 4% PATCH TOPICAL (17:57)
[2024-02-25] MEDS: TYLENOL PO (17:58)
--- NOTE | 2024-02-25 18:24 | PTCARENOTE ---
Pt arrived to 2S transferred to bed via slide with assistance from NSG staff. 3% saline infusing per order. RUE maintained in sling, bruising noted to R arm. Sacrum/ b/l buttocks with red blanchable areas noted, foam applied. Static air overlay
provided. RUE with decreased movement, neurovascular assessment otherwise WDL. Per pt pt has not urinated since prior to falling this am (reports falling around 0900). Pt with no urge to void/discomfort, pt unable to void on bed marr. Dr Goldberg
notified and instructed RN to follow bladder scan protocol. Bed locked and in the lowest position, safety maintained, bed alarm engaged. Oriented to room and call nunez.
[2024-02-25] MEDS: OSCAL 500 + D 500 MG PO (20:16)
[2024-02-25] MEDS: VITAMIN D3 (cholecalciferol) 50 MCG PO (20:16)
[2024-02-25] MEDS: COLACE 100 MG PO (20:16)
[2024-02-25] MEDS: TYLENOL 650 MG PO ×2 (20:16→23:04)
[2024-02-25] MEDS: OCUVITE SOFTGEL 1 CAP PO (20:16)
[2024-02-25] MEDS: SENOKOT PO (20:17)
[2024-02-25] MEDS: CYMBALTA DELAYED RELEASE 20 MG PO (20:17)
[2024-02-25] MEDS: SYMBICORT 160/4.5 MCG INHALER 2 PUFF INH (21:07)
[2024-02-25] MEDS: VITAMIN B-6 100 MG PO (21:08)
[2024-02-26] MEDS: TYLENOL PO (04:27)
--- NOTE | 2024-02-26 04:33 | DOWNTIME ---
There was a [employer] Downtime on 02/26/2024 from 0100 to 02/26/2024 at 0255. Downtime documentation of patient's care, including medication administrations, has been reconciled in the electronic record per guidelines. Refer to the
patient's paper chart under the miscellaneous tab to see printed paper medication records and downtime forms.
[2024-02-26 05:39] LABS: Hematocrit 39.5 % (37.0-47.0); Hemoglobin 14.2 g/dL (12.0-16.0); Mean Corp Hgb Conc. 35.9 g/dL (33.0-37.0); Mean Corpuscular Hgb 28.5 pg (27.0-31.0); Mean Corpuscular Volume 79.3 fL (81.0-99.0); Mean Platelet Volume 9.2 fL (7.4-10.4); Platelet Count 211 10^3/uL (130-400); Red Blood Cell Count 4.98 10^6/uL (4.20-5.40); Red Cell Dist. Width 13.2 % (11.5-14.5); White Blood Cell Count 12.5 10^3/uL (4.8-10.8)
[2024-02-26 06:00] LABS: Blood Urea Nitrogen 40 mg/dl (7-17); Calcium 9.9 mg/dl (8.4-10.2); Carbon Dioxide 18 mmol/L (22-30); Chloride 97 mmol/L (98-107); Estimated Creatinine Clearance 61 ml/min; Glucose 79 mg/dl (70-99); Potassium 4.4 mmol/L (3.5-5.1); Sodium 130 mmol/L (135-145); eGFR > 60.00
[2024-02-26 07:07] VITALS: BP 138/84
--- NOTE | 2024-02-26 07:10 | CON.ORTHO ---
Consultation
-
Date/Time Consultation Requested: 02/25/24 @3:30pm
Date/Time Consultation Performed: 02/26/24 @6:30am
Performing Provider: Eliane Florian PA-C/Deric Keyes MD
Reason for Consultation: right humerus fracture
Consultation - Orthopedics
History
HPI 83yo female admitted to the hospital following a fall on 02/25/24. She reports that she was getting ready to work with her in home physical therapist for a T12 compression fracture she sustained about 2 weeks ago, when she fell landing on her
right side. She was complaining of right arm pain and xray were performed showing a right proximal humerus fracture. She is right hand dominant. She denies any other injuries, numbness/tingling. She reports no increase in her back pain.
PAST MEDICAL HISTORY: COPD, hyponatremia, HTN, HLD, T12 compression fracture
PAST SURGICAL HISTORY: bilateral tubal ligation, tonsillectomy
SOCIAL HISTORY: former smoker, denies alcohol. does not ambulate with assistive device. lives alone
FAMILY HISTORY: Noncontributory
REVIEW OF SYSTEMS: 12 point review of systems obtained and negative except those mentioned in the HPI
Allergies / Home Medications
Allergy/AdvReac Type Severity Reaction Status Date / Time
Penicillins Allergy Rash Verified 02/16/24 22:20
�Medication �Instructions �Recorded
calcium carbonate 600 mg-vitamin 1 tab PO BID Supplement 02/25/24
D3 5 mcg (200 unit) tablet
cholecalciferol (vitamin D3) 50 50 mcg PO BID Supplement 02/25/24
mcg (2,000 unit) tablet (Vitamin
D3)
cyanocobalamin (vitamin B-12) 500 500 mcg PO DAILY Supplement 02/25/24
mcg tablet
donepezil 10 mg tablet 10 mg PO DAILY Neurological 02/25/24
Condition
duloxetine 20 mg capsule,delayed 20 mg PO BID Mental Health 02/25/24
release
fluticasone fur. 200 mcg-umeclid 1 inh inhalation R DAILY 02/25/24
62.5 mcg-vilant 25 mcg Lung/Breathing Issues
inhalat.powder (Trelegy Ellipta)
glucosamine sulf dipotassium Cl 1 tab PO BID Supplement 02/25/24
750 mg-chondroitin sulf 600 mg
tablet (Glucosamine-Chondroitin 3X
Triple Strength)
hydrocodone 5 mg-acetaminophen 300 1 tab PO Q8 Pain 02/25/24
mg tablet
lisinopril 10 mg tablet 10 mg PO DAILY Blood Pressure 02/25/24
pyridoxine (vitamin B6) 100 mg 100 mg PO HS Supplement 02/25/24
tablet
vit C 250 mg-vit E 90 mg-zinc 40 1 tab PO BID Supplement 02/25/24
mg-copper 1 [id number]
capsule (PreserVision AREDS-2)
Vital Signs / Lab Results
Temp Pulse Resp BP Pulse Ox
97.7 F 89 18 136/91 95
02/25/24 23:26 02/25/24 23:26 02/25/24 23:26 02/25/24 23:26 02/25/24 23:26
02/26/24 04:41
02/26/24 04:41
RADIOGRAPHIC FINDINGS:
Xrays right humerus reveal impacted fracture through the region of the surgical neck of the right proximal humerus.
Xrays lumbar spine show comparing to examination February 13, 2024, interval progression of loss of height of the T12 vertebral body. Stable appearance of compression deformities of T10 and L2.
PHYSICAL EXAM:
General: no acute distress
HEENT: NCAT, sclera anicteric, normal hearing
Heart: No JVD
Lungs: normal work of breathing on room air
MSK: Focused exam of right upper extremity reveals skin intact. Mild ecchymosis to right upper arm, mild edema. +TTP over proximal humerus. ROM shoulder deferred. Full ROM of elbow, wrist, and hand. Sensation intact to light touch. Cap refill <2secs
Assessment / Plan
ASSESSMENT: 83yo female with right proximal humerus fracture following a mechanical fall, T12 compression fracture
PLAN: Unfortunately, Ms. Villagomez has sustained a right proximal humerus fracture following her fall. This is amenable to nonoperative management. She is to be non weight bearing to the right arm. She is to wear the sling at all times, removing for
dressing and bathing only. In regards to her T12 compression fracture, continue with conservative management. Continue with pain management as needed. PT/OT evaluation. Case management consult for discharge planning. Follow up outpatient in one week
for repeat xray of shoulder. Orthopedics will sign off for now. Please reach out with any questions or concerns.
[2024-02-26] MEDS: SPIRIVA RESPIMAT 2.5 MCG 2 PUFF INH (08:02)
[2024-02-26] MEDS: SYMBICORT 160/4.5 MCG INHALER 2 PUFF INH ×2 (08:02→20:42)
[2024-02-26] MEDS: OCUVITE SOFTGEL 1 CAP PO ×2 (08:37→19:58)
[2024-02-26] MEDS: VITAMIN B-12 500 MCG PO (08:38)
[2024-02-26] MEDS: ARICEPT 10 MG PO (08:38)
[2024-02-26] MEDS: OSCAL 500 + D 500 MG PO ×2 (08:38→19:58)
[2024-02-26] MEDS: CYMBALTA DELAYED RELEASE 20 MG PO (08:39)
[2024-02-26] MEDS: LIDOCAINE 4% PATCH TOPICAL (08:39)
[2024-02-26] MEDS: VITAMIN D3 (cholecalciferol) 50 MCG PO ×2 (08:39→19:58)
[2024-02-26] MEDS: TYLENOL 650 MG PO ×5 (08:39→23:27)
[2024-02-26] MEDS: ZESTRIL 10 MG PO (08:39)
[2024-02-26] MEDS: SENOKOT PO ×2 (08:40→19:58)
[2024-02-26] MEDS: COLACE PO (08:40)
[2024-02-26 09:00] VITALS: BP 139/99; PULSE 112; O2SAT 94
[2024-02-26 09:10] VITALS: BMI 18.8
--- NOTE | 2024-02-26 10:23 | W.PN.NEPH.PH ---
Today's Communication / Plan
-
follow urine studies
Assessment/Plan
-
Assessment:
hyponatremia
humeral fracture
recurrent falls
weakness
Plan:
no 3% today
check urine studies
may consider lasix
follow BMP
-
-
Date of Service: February 26, 2024
CC / HPI / ROS
-
Chief Complaint:
hyponatremia
History of Present Illness:
Na up to 130 with 3%
BP stable
mild metabolic acidosis new
Review of Systems:
no CP/SOB
Labs
-
Labs:
WBC 12.5 10^3/uL (4.8-10.8) H 02/26/24 04:41
RBC 4.98 10^6/uL (4.20-5.40) 02/26/24 04:41
Hgb 14.2 g/dL (12.0-16.0) 02/26/24 04:41
Hct 39.5 % (37.0-47.0) 02/26/24 04:41
Plt Count 211 10^3/uL (130-400) 02/26/24 04:41
Sodium 130 mmol/L (135-145) L 02/26/24 04:41
Potassium 4.4 mmol/L (3.5-5.1) 02/26/24 04:41
Chloride 97 mmol/L (98-107) L 02/26/24 04:41
Carbon Dioxide 18 mmol/L (22-30) L 02/26/24 04:41
BUN 40 mg/dl (7-17) H 02/26/24 04:41
Creatinine 0.6 mg/dL (0.6-1.0) 02/26/24 04:41
eGFR > 60.00 02/26/24 04:41
Glucose 79 mg/dl (70-99) 02/26/24 04:41
Calcium 9.9 mg/dl (8.4-10.2) 02/26/24 04:41
Albumin 4.6 g/dl (3.5-5.0) 02/25/24 12:55
Physical Exam
-
Vital Signs:
Vital Signs
Temp Pulse Resp BP Pulse Ox
97.9 F 86 18 138/84 96
02/26/24 07:07 02/26/24 08:03 02/26/24 08:03 02/26/24 07:07 02/26/24 08:03
Cardiovascular:: Regular rate and rhythm
Respiratory:: Bilateral: CTA
Lung Excursion:: Normal
Abdomen:: Nontender and Soft
Bowel Sounds:: Normal
Extremity Edema:: None: Bilateral:
[2024-02-26] MEDS: ROXICODONE 5 MG PO (11:38)
--- NOTE | 2024-02-26 11:59 | W.PN.HOSP.TC ---
Today's Communication/Plan
-
Hyponatremia treatment -- appreciate nephrology
PT/OT
Assessment / Plan
Assessment / Plan
Physical Exam
General: Not in acute distress
HEENT: Normocephalic
Respiratory: Clear to Auscultation Bilaterally
Cardiac: S1/S2 and Regular Rhythm
GI: Soft, Non Tender, Non Distended and Normal Bowel Sounds
Musculoskeletal: No Cyanosis. Right Upper Extremity in Sling, RUE distally neurovascularly intact.
Skin: Warm. Dry.
Neuro: AAO x 3 and Nonfocal/grossly intact
Psych: Calm
Assessment/Plan
# Acute on chronic hyponatremia likely from poor oral intake
-Sodium improved from 126 to 130
-Received 1 L normal saline in the ER and also received 3% saline
-Follow hyponatremia studies
-Nephrology consulted, recommendations appreciated
#Fatigue, weakness due to poor oral intake
-Nutrition consult
-PT/OT consult
# Right proximal humerus fracture status post fall
# T12 Compression Fracture
-Orthopedics consulted, recommendations appreciated
-Oxycodone as needed for pain
-Lidocaine patch for back
-Hold Vicodin
-Nonoperative management
-Non-weight bearing to the right arm
-Wear RUE sling at all times, removing for dressing and bathing only.
-PT/OT evaluation.
-Follow up with orthopedics outpatient in one week for repeat x-ray of shoulder.
# Leukocytosis likely stress reaction
-WBC 14.1, improving
# Grief, Depression
# Decreased Appetite, with poor PO intake
-Patient was prescribed Cymbalta recently, her son earlier this year
-Daughter mentioned Cymbalta may be causing patient some nausea
# History of COPD
-Patient is not in exacerbation
-Trelegy continued
# Essential hypertension
-Lisinopril continued
# DVT prophylaxis
-Lovenox
# CODE STATUS
-Full code
Anticipated Discharge: 24 - 48 hours
Subjective/Interval History
-
Date of Service: February 26, 2024
Patient was seen and examined. She reported feeling okay this morning, she denied any significant pain or any other symptoms or complaints.
Objective Data
-
Labs:
Laboratory Results
02/26/24
04:41
WBC 12.5 H
Hgb 14.2
Hct 39.5
Plt Count 211
Sodium 130 L
Potassium 4.4
Chloride 97 L
Carbon Dioxide 18 L
BUN 40 H
Creatinine 0.6
Glucose 79
Calcium 9.9
Vital Signs:
Vital Signs
Temp Pulse Resp BP Pulse Ox
97.9 F 86 18 138/84 96
02/26/24 07:07 02/26/24 08:03 02/26/24 08:03 02/26/24 07:07 02/26/24 08:03
I&O
02/25/24 02/26/24 02/27/24
06:59 06:59 06:59
Intake Total 600 / 600
Balance 600 / 600
[2024-02-26 12:42] LABS: Osmolality Urine 826 mOsm/kg (300-900)
[2024-02-26 13:03] VITALS: BP 88/55; BP 92/59; PULSE 79; O2SAT 95
--- NOTE | 2024-02-26 13:03 | PTCARENOTE ---
Pt with hypotension while working with PT. Pt attempted to stand up from the chair and became ' dizzy/nauseated' BP 88/55 HR 66. Pt assisted back to bed BP 104/70 HR 81. Pt denies dizziness/ nausea at this time. Dr Goldberg notified. Care ongoing
at this time.
[2024-02-26 13:15] LABS: Urine Sodium 28 mmol/L (30-90)
--- NOTE | 2024-02-26 13:41 | CON.MD ---
Consultation - Medical
-
patient seen chart reviewed. discussed w nursing and with pt who reported orthostasis upon working w patient. she is 83 yo admitted for a fall. she admits depression since covid exacerbated by the deaths of her son in aug and her cat in the fall.
she also notes some decline in memory for which placed on aricept 10mg daily. she said it was keeping her from sleep and it was changed to am. she does not think it has really helped. her pcp added cymbalta 20 mg bid which she feels causes nausea .
notably hx of hyponatremia currently 130 but has dipped in to twenties. she sleeps well appetite is poor w some weight loss. does not enjoy much. she does have supportive family . no suicidal thoughs. no psychosis energy level not great.
past psych hx until recently 'i've always been fine.' see above
medicaal hx here after a fall hx t12 compression fx macular degeneration back pain copd shoulder impingement hld hypertension pulmonary nodules was prescribed opiates for pain of vert bx osteoarthritis. mild cognitive impairment
substance abuse denied
fh sister w dementia
social lives alone. feels she should not live alone much longer. div years ago. had live in partner eleven years ago see above re loss of son and cat had two children one three grands. she does see them. retired teacher
mse alert ox3 cooperative but very tired. had received opiates prior thought process nl no psychosis depressed no si appropriate affect ave intell insight judgment ok
dx unspec depression mild cognitive impairment
plan stop cymbalta. consider alternative antidep when nausea subsides but given hyponatremia will need careful monitoring. would wait and see if hyponatremia and nausea resolve then consider remeron or wellbutrin may be a bit less likely to decrease
sodium. check b12 folate tsh w reflex to t4 if not already done will follow
--- NOTE | 2024-02-26 14:56 | CM ---
Alert awake oriented [facility] patient who lives alone in a 2 story home with 6 step to enter and 6 steps to bed and bathroom. She was independent in driving and in all activities of daily living.PT OT saw patient . Daughter Esthela in room with pt . They
requested SNFs :[facility], [facility]and [facility].All entered in care port. Will need auth .
No VN hx / No SNF history
Pharmacy [facility]
PCP DR Garland
PLAN To SNf after located and auth obtained
[2024-02-26 15:23] LABS: Troponin I < 0.012 ng/ml
[2024-02-26 15:40] VITALS: BP 106/71; BP 67/50; BP 85/58; PULSE 107; PULSE 137; PULSE 97
[2024-02-26] MEDS: LOVENOX 40 MG SC (18:08)
[2024-02-26 19:18] VITALS: BP 142/80
[2024-02-26] MEDS: COLACE 100 MG PO (19:57)
[2024-02-26 21:20] LABS: Troponin I < 0.012 ng/ml
[2024-02-26] MEDS: VITAMIN B-6 100 MG PO (22:26)
[2024-02-26 23:55] VITALS: BP 109/73
[2024-02-27] VITALS (8 sets, daily range): BP systolic 75–129; BP diastolic 52–87; PULSE 89–109
[2024-02-27 03:51] LABS: Troponin I < 0.012 ng/ml
[2024-02-27] MEDS: TYLENOL PO ×2 (04:55→20:17)
[2024-02-27 06:34] LABS: Blood Urea Nitrogen 48 mg/dl (7-17); Calcium 10.3 mg/dl (8.4-10.2); Carbon Dioxide 25 mmol/L (22-30); Chloride 96 mmol/L (98-107); Estimated Creatinine Clearance 52 ml/min; Glucose 106 mg/dl (70-99); Potassium 4.4 mmol/L (3.5-5.1); Sodium 129 mmol/L (135-145); eGFR > 60.00
[2024-02-27] MEDS: SPIRIVA RESPIMAT 2.5 MCG 2 PUFF INH (07:41)
[2024-02-27] MEDS: SYMBICORT 160/4.5 MCG INHALER 2 PUFF INH ×2 (07:41→19:57)
[2024-02-27] MEDS: SENOKOT 17.2 MG PO ×2 (08:13→20:18)
[2024-02-27] MEDS: TYLENOL 650 MG PO ×3 (08:13→18:47)
[2024-02-27] MEDS: VITAMIN D3 (cholecalciferol) 50 MCG PO ×2 (08:14→20:17)
[2024-02-27] MEDS: VITAMIN B-12 500 MCG PO (08:15)
[2024-02-27] MEDS: COLACE 100 MG PO ×2 (08:15→20:16)
[2024-02-27] MEDS: ARICEPT 10 MG PO (08:15)
[2024-02-27] MEDS: OSCAL 500 + D 500 MG PO ×2 (08:15→20:16)
[2024-02-27] MEDS: ZESTRIL 10 MG PO (08:16)
[2024-02-27] MEDS: OCUVITE SOFTGEL 1 CAP PO ×2 (08:18→20:16)
[2024-02-27] MEDS: LIDOCAINE 4% PATCH 1 PATCH TOPICAL (08:18)
[2024-02-27 10:17] LABS: Troponin I < 0.012 ng/ml
[2024-02-27] MEDS: ROXICODONE 5 MG PO (10:46)
--- NOTE | 2024-02-27 10:49 | W.PN.HOSP.TC ---
Today's Communication/Plan
-
Consulted cardiology given aortic stenosis on echo along with orthostatic hypotension
Appreciate Nephrology, Psychiatry and Cardiology
PT/OT
Assessment / Plan
Assessment / Plan
Physical Exam
General: Not in acute distress
HEENT: Normocephalic
Respiratory: Clear to Auscultation Bilaterally
Cardiac: S1/S2 and Regular Rhythm
GI: Soft, Non Tender, Non Distended and Normal Bowel Sounds
Musculoskeletal: No Cyanosis. Right Upper Extremity in Sling, RUE distally neurovascularly intact.
Skin: Warm. Dry.
Neuro: AAO x 3 and Nonfocal/grossly intact
Psych: Calm
Assessment/Plan
#Orthostatic Hypotension, Suspected Secondary to Hypovolemia (in setting of poor PO intake) as well Aortic Stenosis
#Aortic Stenosis on Echocardiogram This Hospitalization
-Encourage PO intake
-Consulted cardiology given patient's orthostatic hypotension on 02/26/24 and echocardiogram findings of aortic stenosis
-Check Vitamin B12, TSH
# Acute on chronic hyponatremia likely from poor oral intake
-Sodium improved from 126 to 130 then to 129
-Received 1 L normal saline in the ER and also received 3% saline
-Nephrology consulted, recommendations appreciated
#Fatigue, weakness due to poor oral intake
-Nutrition consult
-PT/OT consult
# Right proximal humerus fracture status post fall
# T12 Compression Fracture
-Orthopedics consulted, recommendations appreciated
-Oxycodone as needed for pain
-Lidocaine patch for back
-Hold Vicodin
-Nonoperative management
-Non-weight bearing to the right arm
-Wear RUE sling at all times, removing for dressing and bathing only.
-PT/OT evaluation.
-Follow up with orthopedics outpatient in one week for repeat x-ray of shoulder.
# Leukocytosis likely stress reaction
-WBC 14.1, improving
# Grief, Depression
# Decreased Appetite, with poor PO intake
-Patient was prescribed Cymbalta recently, her son earlier this year
-Daughter mentioned Cymbalta may be causing patient some nausea
-Psychiatry consulted, recommendations appreciated: Cymbalta stopped, after hyponatremia and nausea resolve can consider Remeron or Wellbutrin
# History of COPD
-Patient is not in exacerbation
-Trelegy continued
# Essential hypertension
-Lisinopril continued
# DVT prophylaxis
-Lovenox
# CODE STATUS
-Full code
Anticipated Discharge: > 48 hours
Subjective/Interval History
-
Date of Service: February 27, 2024
Patient was seen and examined. She was hypotensive and dizzy with low blood pressures when she got up yesterday, per patient's nurse.
Objective Data
-
Labs:
Laboratory Results
02/27/24 02/27/24
05:05 05:06
WBC Pending
Hgb Pending
Hct Pending
Plt Count Pending
Sodium 129 L
Potassium 4.4
Chloride 96 L
Carbon Dioxide 25
BUN 48 H
Creatinine 0.7
Glucose 106 H
Calcium 10.3 H
Vital Signs:
Vital Signs
Temp Pulse Resp BP Pulse Ox
97.8 F 85 16 128/85 95
02/27/24 07:25 02/27/24 07:40 02/27/24 07:40 02/27/24 07:25 02/27/24 07:40
I&O
02/26/24 02/27/24 02/28/24
06:59 06:59 06:59
Intake Total 600 / 600 1470 / 1470
Balance 600 / 600 1470 / 1470
--- NOTE | 2024-02-27 11:21 | CON.CAR ---
Addendum entered and electronically signed by Onel Burgess MD 02/27/24 12:32:
83 yo female with PMH of HTN, COPD admitted following a fall. She had prior T12 compression fracture, and now has right proximal humerus fall. She is unsure is she passed out. Exam with RRR, II/ systolic murmur at RUSB, no edema. Tele: NSR, brief
SVT.
Orthostatic hypotension. Start by holding lisinopril and trend BP. Increase PO intake. Continued PT. Adding midodrine will be next step if orthostasis continues despite these measures.
Original Note:
Consultation
Consultation Request
Date/Time Consultation Requested: 02/27/24 0800
Date/Time Consultation Performed: 02/27/24 1147
Requesting Provider: Dr. Burgess
Performing Provider: Vero MILLER for Dr. Burgess
Reason for Consultation: aortic stenosis, orthostatic hypotension
Medical History
-
Chief Complaint: Fall with humerus fracture
History of Present Illness:
83 y/o female with hypertension, COPD, and mild memory impairment who recently suffered a T12 compression fracture after she slipped on loose gravel out of her car. She was started on Vicodin and has been getting PT. In prep for PT to come on
02/25/24 she was walking and fell again- details unclear- she doesn't think she lost consciousness, but does not know why she fell. She suffered a humerus fracture that does not require surgery. Apparently, since starting her pain med, oral inake has
been poor. She is noted to have hyponatremia, for which nephrology has been treating - she is s/p hypertonic saline. We are consulted since noted on echo. Fortunately, it is mild and stable. Additionally, we are consulted for symptomatic
orthostatic hypotension. She is in no distress at the time of my assessment.
Past Medical History
Past Medical History: COPD, HTN and Other (as above)
Social History
Tobacco: Former Smoker
Family History
Family History: Reviewed & Not Pertinent
Allergies / Home Medications
Allergy/AdvReac Type Severity Reaction Status Date / Time
Penicillins Allergy Rash Verified 02/16/24 22:20
�Medication �Instructions �Recorded �Confirmed �Type
calcium carbonate 600 mg-vitamin 1 tab PO BID Supplement 02/25/24 02/25/24 History
D3 5 mcg (200 unit) tablet
cholecalciferol (vitamin D3) 50 50 mcg PO BID Supplement 02/25/24 02/25/24 History
mcg (2,000 unit) tablet (Vitamin
D3)
cyanocobalamin (vitamin B-12) 500 500 mcg PO DAILY Supplement 02/25/24 02/25/24 History
mcg tablet
donepezil 10 mg tablet 10 mg PO DAILY Neurological 02/25/24 02/25/24 History
Condition
duloxetine 20 mg capsule,delayed 20 mg PO BID Mental Health 02/25/24 02/25/24 History
release
fluticasone fur. 200 mcg-umeclid 1 inh inhalation R DAILY 02/25/24 02/25/24 History
62.5 mcg-vilant 25 mcg Lung/Breathing Issues
inhalat.powder (Trelegy Ellipta)
glucosamine sulf dipotassium Cl 1 tab PO BID Supplement 02/25/24 02/25/24 History
750 mg-chondroitin sulf 600 mg
tablet (Glucosamine-Chondroitin 3X
Triple Strength)
hydrocodone 5 mg-acetaminophen 300 1 tab PO Q8 Pain 02/25/24 02/25/24 History
mg tablet
lisinopril 10 mg tablet 10 mg PO DAILY Blood Pressure 02/25/24 02/25/24 History
pyridoxine (vitamin B6) 100 mg 100 mg PO HS Supplement 02/25/24 02/25/24 History
tablet
vit C 250 mg-vit E 90 mg-zinc 40 1 tab PO BID Supplement 02/25/24 02/25/24 History
mg-copper 1 [id number]
capsule (PreserVision AREDS-2)
Review of Systems
-
History Source: Patient
All other systems: Negative unless noted
Neurological: Dizzy (with standing during PT yesterday)
Physical Exam
Vital Signs
Temp Pulse Resp BP Pulse Ox
97.8 F 85 16 128/85 95
02/27/24 07:25 02/27/24 07:40 02/27/24 07:40 02/27/24 07:25 02/27/24 07:40
Lab Results
02/27/24 05:05
Troponin I < 0.012 ng/ml 02/27/24 09:44
Physical Exam
General: Well Developed, Well Nourished and No Apparent Distress
HEENT: Normocephalic and Anicteric
Respiratory: Clear and Non Labored Respirations
Cardiac: Regular Rhythm and Murmur (II/ systolic)
Skin: Warm and Dry
Neuro: AO x 3
Psych: Calm
Impression / Plan
-
Orthostatic hypotension: severe (down to 60's on documentation with dizziness, but no syncope)
-hold lisinopril and follow BP's
-compression socks
-encourage PO intake (patient with poor PO intake, weight down). I think she is volume down and may require fluids, but would defer to nephrology given her hyponatremia issues.
-repeat CBC is pending
Aortic stenosis:
-mild and stable
-this should not be contributing to symptoms
-can monitor over time
pSVT:
-brief, asymptomatic
-follow tele, no treatment needed at this time
Hyponatremia:
-s/p hypertonic saline
-getting [facility] today
-nephrology managing
Humerus fx:
-per ortho
HTN:
-monitor with ACEI hold
COPD:
-stable, no wheezing
Data Reviewed
-
EKG: Tracing Personally Visualized and interpreted (SR with SA)
Radiology: Report Reviewed by me (Humerus XR: Impacted fracture through the region of the surgical neck of the right proximal humerus.)
Medical Tests (Nuc Med, Echo etc): Report Reviewed by me (echo 02/26/24: Hyperdynamic left ventricular systolic function. Left ventricular ejection fraction is 70-75%. Mild aortic stenosis with peak/mean gradients of 25/12 mmHg. diameter of 1.9 cm.
Prominent eustachian valve. Lipomatous hypertrophy of interatrial septum.)
Labs: Labs Reviewed by me
--- NOTE | 2024-02-27 11:46 | W.PN.NEPH.PH ---
Today's Communication / Plan
-
[facility]
Assessment/Plan
-
Assessment:
hyponatremia
humeral fracture
recurrent falls
weakness
Plan:
[facility]a today
follow BMP
encourage po
d/w family
-
-
Date of Service: February 27, 2024
CC / HPI / ROS
-
Chief Complaint:
hyponatremia
History of Present Illness:
Na stable 129
BP stable
mild metabolic acidosis better
Review of Systems:
no CP/SOB
eating slightly better
Labs
-
Labs:
Sodium 129 mmol/L (135-145) L 02/27/24 05:05
Potassium 4.4 mmol/L (3.5-5.1) 02/27/24 05:05
Chloride 96 mmol/L (98-107) L 02/27/24 05:05
Carbon Dioxide 25 mmol/L (22-30) 02/27/24 05:05
BUN 48 mg/dl (7-17) H 02/27/24 05:05
Creatinine 0.7 mg/dL (0.6-1.0) 02/27/24 05:05
eGFR > 60.00 02/27/24 05:05
Glucose 106 mg/dl (70-99) H 02/27/24 05:05
Calcium 10.3 mg/dl (8.4-10.2) H 02/27/24 05:05
Albumin 4.6 g/dl (3.5-5.0) 02/25/24 12:55
Physical Exam
-
Vital Signs:
Vital Signs
Temp Pulse Resp BP Pulse Ox
98.1 F 87 17 96/64 93
02/27/24 11:22 02/27/24 11:02/27/24 11:22 02/27/24 11:22 02/27/24 11:22
Cardiovascular:: Regular rate and rhythm
Respiratory:: Bilateral: Coarse
Lung Excursion:: Normal
Abdomen:: Nontender and Soft
Bowel Sounds:: Normal
Extremity Edema:: None: Bilateral:
[2024-02-27] MEDS: SAMSCA 7.5 MG PO (12:40)
[2024-02-27 13:05] LABS: TSH Reflex To Free T4 1.04 uIU/ml (0.47-4.68)
[2024-02-27 13:24] LABS: Vitamin B12 > 1000 pg/ml (239-931)
[2024-02-27 13:33] LABS: Hematocrit 35.5 % (37.0-47.0); Hemoglobin 12.6 g/dL (12.0-16.0); Mean Corp Hgb Conc. 35.5 g/dL (33.0-37.0); Mean Corpuscular Hgb 28.6 pg (27.0-31.0); Mean Corpuscular Volume 80.7 fL (81.0-99.0); Mean Platelet Volume 9.1 fL (7.4-10.4); Platelet Count 199 10^3/uL (130-400); Red Cell Dist. Width 13.4 % (11.5-14.5)
--- NOTE | 2024-02-27 13:47 | PN.CDI ---
CDI
- -
CDI:
Physician Documentation Request
Admit Date: 02/25/24 15:23
Dear Doctor Yusuf
Please review the following and provide your response in the progress notes.
Clinical Indicators:
Height: 5 ft 7 in
Weight:119 lb 14.9
BMI: 18.8
Other Clinical Notes:Nutrition consult, ' BMI: 18.8 (7-16). wt on previous admission to ED 3-6 130 lbs., BMI: 20.4 this reflects an 8% wt loss in 4 months ..'
Documented in the record ' poor oral intake '
If possible, please provide an associated diagnosis related to the abnormal BMI, such as:
BMI < or = to 19
Underweight
Weight Loss
Cachectic
- Other
Use of terms such as suspected, likely, concern for, or probable (associated with a specific diagnosis that is being evaluated, monitored, or treated as if it exists) are acceptable and can be coded in the inpatient setting, when documented at the
time of discharge.
Thank you,
Mai Adkins RN
CDI Specialist
[place] [facility]
Please use your independent medical judgment in providing your response.
--- NOTE | 2024-02-27 13:53 | PN.CDI ---
CDI
- -
CDI:
Physician Documentation Request
Admit Date: 02/25/24 15:23
Dear Doctor Yusuf,
Please review the following and provide your response in the progress notes.
Clinical Indicators:
Pt admitted with Hyponatremia/ closed proximal humeral fracture
Documented per ED, ' ...presented to us with after a ground-level fall....impacted fracture through the region of the surgical neck of the right proximal humerus...'
Documented per Nephrology consult, ' PMH...' osteoporosis..She was attempting to walk prior to her PT's arrival today when she fell again and was found to have a fracture of her R humerus....'
Pt takes Vitamin D3 /Calcium per home meds
Please provide the suspected Etiology of the documented Right humerus fracture:
Due to Age related Osteoporosis
Due to /ground /low level fall only
Other (please specify)
Use of terms such as suspected, likely, concern for, or probable (associated with a specific diagnosis that is being evaluated, monitored, or treated as if it exists) are acceptable and can be coded in the inpatient setting, when documented at the
time of discharge.
Thank you,
Mai Adkins RN
CDI Specialist
[place] [facility]
Please use your independent medical judgment in providing your response.
[2024-02-27 13:57] LABS: Troponin I < 0.012 ng/ml
--- NOTE | 2024-02-27 14:04 | PN.CDI ---
CDI
- -
CDI:
Physician Documentation Request
Admit Date: 02/25/24 15:23
Dear Doctor Yusuf,
Please review the following and provide your response in the progress notes.
Clinical Indicators:
Pt admitted with Hyponatremia/ closed proximal humeral fracture
Documented per Nephrology consult, ' She has had trouble with hyponatremia in the past. Her daughter states that about 2 years ago, she was on salt tabs for a little. Her sodium was also low in September. It was noted to be 126 back then as well.
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
Documented per H&P and progress notes 02/25 & 02/26, ' Acute on chronic hyponatremia likely from poor oral intake..'
Urine Studies/Serum OSM below/Pt did get 3 % saline on 02/24 and Samsca 7.5 mg PO today 02/26
02/25/24 02/26/24
12:55 12:14
Serum Osmolality 279
Urine Osmolality 826
Urine Sodium 28 L
Please Update the status of the suspected SIADH documented in the nephrology consult
SIADH -still being monitored /treated
SIADH -ruled out
Other ( please specify)
Use of terms such as suspected, likely, concern for, or probable (associated with a specific diagnosis that is being evaluated, monitored, or treated as if it exists) are acceptable and can be coded in the inpatient setting, when documented at the
time of discharge.
Thank you,
Mai Adkins RN
CDI Specialist
[place] [facility]
Please use your independent medical judgment in providing your response.
--- NOTE | 2024-02-27 15:14 | W.PN.UPDATE ---
Update Note
Progress Note Update
patient seen chart reviewed. patient was much more alert and interactive today. she said today she would not say she was depressed. she had a hard time agreeing to get out of bed earlier but since she has been up in a chair she is feeling more awake
and alive. we discussed that i had stopped her cymbalta and why once again which we covered yesterday. she says she does not feel she needs an antidepressant at this point but i pointed out to her that since we just dc'ed cymbalta yesterday that
may change and she should discuss with her doctor if she does start to feel depressed and more anxious again. we covered many other topics...she is a good conversationalist . she told me she said to her d that she would not mind not waking up but
she did not means she had any thoughts of harming herself or even wanting to ...but she has had a very good life and is grateful for it and that she could be content with living 83 years. we also talking about her observations about her
family....her personality (says she does not have sense of humor and for years felt she should try to be funny but just finally decided she had to be herself) her sense of humor seemed fine to me. at this point would not restart an antidepressant
and would work on nomralizing serum sodium which is still low. we also talked about the importance of PT two falls in a short time are concerning and perhaps needs to work on balance. psych is signing off. please call us if you would like us to
return.
[2024-02-27] MEDS: LOVENOX 40 MG SC (18:47)
[2024-02-27] MEDS: VITAMIN B-6 100 MG PO (21:37)
[2024-02-28] VITALS (9 sets, daily range): BP systolic 98–130; BP diastolic 69–84; PULSE 85–139; O2SAT 93–95
[2024-02-28] MEDS: TYLENOL 650 MG PO ×4 (00:53→21:12)
[2024-02-28] MEDS: TYLENOL PO ×2 (04:50→12:00)
[2024-02-28 06:44] LABS: Hematocrit 34.6 % (37.0-47.0); Hemoglobin 12.4 g/dL (12.0-16.0); Mean Corp Hgb Conc. 35.8 g/dL (33.0-37.0); Mean Corpuscular Hgb 29.5 pg (27.0-31.0); Mean Corpuscular Volume 82.4 fL (81.0-99.0); Mean Platelet Volume 9.6 fL (7.4-10.4); Platelet Count 206 10^3/uL (130-400); Red Cell Dist. Width 13.5 % (11.5-14.5); White Blood Cell Count 10.6 10^3/uL (4.8-10.8)
[2024-02-28 07:06] LABS: Blood Urea Nitrogen 35 mg/dl (7-17); Calcium 10.3 mg/dl (8.4-10.2); Carbon Dioxide 28 mmol/L (22-30); Chloride 96 mmol/L (98-107); Estimated Creatinine Clearance 61 ml/min; Glucose 99 mg/dl (70-99); Potassium 4.6 mmol/L (3.5-5.1); Sodium 130 mmol/L (135-145); eGFR > 60.00
[2024-02-28] MEDS: SYMBICORT 160/4.5 MCG INHALER 2 PUFF INH ×2 (07:25→20:08)
[2024-02-28] MEDS: SPIRIVA RESPIMAT 2.5 MCG 2 PUFF INH (07:25)
--- NOTE | 2024-02-28 09:09 | W.PN.CD ---
Today's Communication / Plan
-
remain off of lisinopril; can use midodrine starting at 2.5mg tid if orthostatic hypotension recurs
please call us back with additional questions
Impression / Plan
-
Orthostatic hypotension: severe (down to 60's on documentation with dizziness, but no syncope)
-compression socks
-encourage PO intake (patient with poor PO intake, weight down).
- we stopped lisinopril yesterday; BP stable, and orthostatics look better this AM
-remain off of lisinopril; can use midodrine starting at 2.5mg tid if orthostatic hypotension recurs
Aortic stenosis:
-mild and stable
-this should not be contributing to symptoms
-can monitor over time
pSVT:
-brief, asymptomatic
-follow tele, no treatment needed at this time
Hyponatremia:
-s/p hypertonic saline
-getting Samsca today
-nephrology managing
Humerus fx:
-per ortho
HTN:
-monitor with ACEI hold
COPD:
-stable, no wheezing
Physical Exam
Vital Signs/Labs
Vital Signs
Temp Pulse Resp BP Pulse Ox
98.4 F 104 16 98/69 97
02/28/24 07:26 02/28/24 07:27 02/28/24 07:27 02/28/24 07:26 02/28/24 07:27
02/28/24 05:35
02/28/24 05:35
LAB Results
02/26/24 02/26/24 02/27/24
14:33 20:33 02:33
Troponin I < 0.012 < 0.012 < 0.012
02/27/24 02/27/24
09:44 13:17
Troponin I < 0.012 < 0.012
Physical Exam
Constitutional: No acute distress and Comfortable
EENT: Moist mucous membranes
Cardiovascular: Rhythm & rate is regular, Pedal edema is absent, JVD pressure is normal and Systolic murmur present
Respiratory: Respiratory effort normal and Lungs clear to auscul.
GI: Soft and Distention absent
Neuro/Psych: Alert
Data Reviewed
-
Date of Service: February 28, 2024
EKG: Other (Tele: SR 80s)
Labs: Labs Reviewed by me
--- NOTE | 2024-02-28 09:36 | W.PN.HOSP.TC ---
Today's Communication/Plan
-
May need another Samsca -- appreciate nephrology
Depression/Suicidal thoughts this morning -- 1:1 sitter and psychiatry re-consulted
Orthostatic blood pressures have improved
Ideally on discharge should go to acute rehab
Assessment / Plan
Assessment / Plan
Physical Exam
General: Not in acute distress
HEENT: Normocephalic
Respiratory: Clear to Auscultation Bilaterally
Cardiac: S1/S2 and Regular Rhythm
GI: Soft, Non Tender, Non Distended and Normal Bowel Sounds
Musculoskeletal: No Cyanosis. Right Upper Extremity in Sling, RUE distally neurovascularly intact.
Skin: Warm. Dry.
Neuro: AAO x 3 and Nonfocal/grossly intact
Psych: Depressed
Assessment/Plan
#Orthostatic Hypotension, Suspected Secondary to Hypovolemia (in setting of poor PO intake) as well Aortic Stenosis
#Aortic Stenosis on Echocardiogram This Hospitalization
-Encourage PO intake
-Consulted cardiology given patient's orthostatic hypotension on 02/26/24 and echocardiogram findings of aortic stenosis
-Compression socks
-Lisinopril stopped; BP stable, and orthostatics look better this AM
-Hold Lisinopril on discharge; can use midodrine starting at 2.5mg tid if orthostatic hypotension recurs
-Vitamin B12 level is high
-TSH WNL
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
-Sodium improved from 126 to 130 then to 129 then to 130
-Received 1 L normal saline in the ER and also received 3% saline
-Nephrology consulted, recommendations appreciated
-Received SAMSCA yesterday
#Fatigue, weakness due to poor oral intake
-Nutrition consult
-PT/OT consult
# Right proximal humerus fracture from fall
# T12 Compression Fracture
-Orthopedics consulted, recommendations appreciated
-Oxycodone as needed for pain
-Lidocaine patch for back
-Hold Vicodin
-Nonoperative management
-Non-weight bearing to the right arm
-Wear RUE sling at all times, removing for dressing and bathing only.
-PT/OT evaluation.
-Follow up with orthopedics outpatient in one week for repeat x-ray of shoulder.
# Leukocytosis likely stress reaction
-WBC 14.1, improving
# Grief, Depression
# Suicidal Thoughts on February 28, 2024
# Decreased Appetite, with poor PO intake
-Patient was prescribed Cymbalta recently, her son earlier this year
-Daughter mentioned Cymbalta may be causing patient some nausea
-Psychiatry consulted, recommendations appreciated: Cymbalta stopped, after hyponatremia and nausea resolve can consider Remeron or Wellbutrin
-1:1 sitter given patient's suicidal thoughts, appreciate psychiatry follow-up
# History of COPD
-Patient is not in exacerbation
-Trelegy continued
# Essential hypertension
-Lisinopril stopped due to orthostatic hypotension
#Underweight
# DVT prophylaxis
-Lovenox
# CODE STATUS
-Full code
Anticipated Discharge: 24 - 48 hours
Subjective/Interval History
-
Date of Service: February 28, 2024
Patient was seen and examined. She reported grief and sadness this morning, given the recent loss of her family members. She stated she wish she could 'go.'
Objective Data
-
Labs:
Laboratory Results
02/28/24
05:35
WBC 10.6
Hgb 12.4
Hct 34.6 L
Plt Count 206
Sodium 130 L
Potassium 4.6
Chloride 96 L
Carbon Dioxide 28
BUN 35 H
Creatinine 0.6
Glucose 99
Calcium 10.3 H
Vital Signs:
Vital Signs
Temp Pulse Resp BP Pulse Ox
98.4 F 104 16 98/69 97
02/28/24 07:26 02/28/24 07:27 02/28/24 07:27 02/28/24 07:26 02/28/24 07:27
I&O
02/27/24 02/28/24 02/29/24
06:59 06:59 06:59
Intake Total 1470 / 1470 1680 / 1680
Balance 1470 / 1470 1680 / 1680
[2024-02-28] MEDS: VITAMIN D3 (cholecalciferol) 50 MCG PO ×2 (10:12→21:12)
[2024-02-28] MEDS: SENOKOT 17.2 MG PO ×2 (10:13→21:12)
[2024-02-28] MEDS: COLACE 100 MG PO ×2 (10:13→21:11)
[2024-02-28] MEDS: OSCAL 500 + D 500 MG PO ×2 (10:13→21:12)
[2024-02-28] MEDS: VITAMIN B-12 500 MCG PO (10:13)
[2024-02-28] MEDS: OCUVITE SOFTGEL 1 CAP PO ×2 (10:13→21:12)
[2024-02-28] MEDS: ARICEPT 10 MG PO (10:13)
[2024-02-28] MEDS: LIDOCAINE 4% PATCH 1 PATCH TOPICAL (10:14)
--- NOTE | 2024-02-28 11:00 | W.PN.UPDATE ---
Update Note
Progress Note Update
patient seen chart reviewed. spoke with nursing and hospitalist dr degroot by text. asked to see patient again bc ? si. this is addressed in my note yesterday and i reviewed this issue again with patient today. she is NOT suicidal. she has
suffered a lot of loss in past months...her son, her pet, friends and indeed the whole stretch of covid was difficult for her bc of the isolation. she is also acutely aware of the changes w aging. she has discussed with her friends and does
not fear dying. she sees herself as having experienced a good life....and has said she would not be angry or resentful were she to fall ill w an incurable disease that might shorten her life and looks upon dying in your sleep as a blessing as you
would not suffer. that said, she is not wishing to nor would she ever take matters in to her own hands and try to end her life. dc one to one. psych will sign off again.
--- NOTE | 2024-02-28 12:07 | CM ---
CM spoke with patient's daughter, Esthela, via phone # [phone]
Discussed outcome of SNF referrals: [facility] is out of patient's insurance network; Referral to [facility] was accepted
Daughter agreeable with mother going to [facility] when medically stable; anticipated discharge is 24-48 hours
Plan: discharge to [facility] pending bed availability and insurance Authorization approval
--- NOTE | 2024-02-28 15:57 | W.PN.NEPH.PH ---
Today's Communication / Plan
-
- sign off
Assessment/Plan
-
Assessment:
hyponatremia
humeral fracture
recurrent falls
weakness
Plan:
no more samsca
sodium is at her baseline (ranges 126-132 since 2022)
encourage PO intake
follow BMP
off SSRI
pain improved
planning for discharge to rehab
d/w patient
nephrology will sign off at this time
please call us back if any further questions
-
-
Date of Service: February 28, 2024
CC / HPI / ROS
-
Chief Complaint:
hyponatremia
History of Present Illness:
Na stable 130
BP stable
mild metabolic acidosis better
Review of Systems:
no CP/SOB
eating slightly better
Labs
-
Labs:
WBC 10.6 10^3/uL (4.8-10.8) 02/28/24 05:35
RBC 4.20 10^6/uL (4.20-5.40) 02/28/24 05:35
Hgb 12.4 g/dL (12.0-16.0) 02/28/24 05:35
Hct 34.6 % (37.0-47.0) L 02/28/24 05:35
Plt Count 206 10^3/uL (130-400) 02/28/24 05:35
Sodium 130 mmol/L (135-145) L 02/28/24 05:35
Potassium 4.6 mmol/L (3.5-5.1) 02/28/24 05:35
Chloride 96 mmol/L (98-107) L 02/28/24 05:35
Carbon Dioxide 28 mmol/L (22-30) 02/28/24 05:35
BUN 35 mg/dl (7-17) H 02/28/24 05:35
Creatinine 0.6 mg/dL (0.6-1.0) 02/28/24 05:35
eGFR > 60.00 02/28/24 05:35
Glucose 99 mg/dl (70-99) 02/28/24 05:35
Calcium 10.3 mg/dl (8.4-10.2) H 02/28/24 05:35
Albumin 4.6 g/dl (3.5-5.0) 02/25/24 12:55
Physical Exam
-
Vital Signs:
Vital Signs
Temp Pulse Resp BP Pulse Ox
97.6 F 89 16 123/82 95
02/28/24 15:31 02/28/24 15:31 02/28/24 15:31 02/28/24 15:31 02/28/24 15:31
Cardiovascular:: Regular rate and rhythm
Respiratory:: Bilateral: Coarse
Lung Excursion:: Normal
Abdomen:: Nontender and Soft
Bowel Sounds:: Normal
Extremity Edema:: None: Bilateral:
Jiménez Catheter: No
[2024-02-28] MEDS: LOVENOX 40 MG SC (17:24)
[2024-02-28] MEDS: VITAMIN B-6 100 MG PO (21:13)
[2024-02-29] VITALS (8 sets, daily range): BP systolic 113–134; BP diastolic 66–82; PULSE 89–132; O2SAT 94
[2024-02-29] MEDS: TYLENOL 650 MG PO ×6 (00:32→23:22)
[2024-02-29] MEDS: SYMBICORT 160/4.5 MCG INHALER 2 PUFF INH ×2 (07:49→18:34)
[2024-02-29] MEDS: SPIRIVA RESPIMAT 2.5 MCG 2 PUFF INH (07:49)
[2024-02-29 07:59] LABS: Hematocrit 33.4 % (37.0-47.0); Mean Corp Hgb Conc. 35.9 g/dL (33.0-37.0); Mean Corpuscular Hgb 29.1 pg (27.0-31.0); Mean Corpuscular Volume 81.1 fL (81.0-99.0); Mean Platelet Volume 9.8 fL (7.4-10.4); Platelet Count 195 10^3/uL (130-400); Red Blood Cell Count 4.12 10^6/uL (4.20-5.40); Red Cell Dist. Width 13.7 % (11.5-14.5); White Blood Cell Count 10.9 10^3/uL (4.8-10.8)
[2024-02-29 08:15] LABS: Blood Urea Nitrogen 28 mg/dl (7-17); Calcium 9.5 mg/dl (8.4-10.2); Carbon Dioxide 27 mmol/L (22-30); Chloride 93 mmol/L (98-107); Estimated Creatinine Clearance 61 ml/min; Glucose 90 mg/dl (70-99); Potassium 4.2 mmol/L (3.5-5.1); Sodium 127 mmol/L (135-145); eGFR > 60.00
[2024-02-29] MEDS: SENOKOT 17.2 MG PO ×2 (08:29→19:48)
[2024-02-29] MEDS: OSCAL 500 + D 500 MG PO ×2 (08:30→19:48)
[2024-02-29] MEDS: COLACE 100 MG PO (08:30)
[2024-02-29] MEDS: VITAMIN D3 (cholecalciferol) 50 MCG PO ×2 (08:31→19:48)
[2024-02-29] MEDS: VITAMIN B-12 500 MCG PO (08:31)
[2024-02-29] MEDS: LIDOCAINE 4% PATCH 1 PATCH TOPICAL (08:33)
[2024-02-29] MEDS: ARICEPT PO (08:33)
--- NOTE | 2024-02-29 09:05 | W.PN.HOSP.TC ---
Today's Communication/Plan
-
Spoke to case management; patient needs an insurance auth with [facility] and may need up to 2 days to get auth
Encourage PO intake
PT/OT
Assessment / Plan
Assessment / Plan
Physical Exam
General: Not in acute distress
HEENT: Normocephalic
Respiratory: Clear to Auscultation Bilaterally
Cardiac: S1/S2 and Regular Rhythm
GI: Soft, Non Tender, Non Distended and Normal Bowel Sounds
Musculoskeletal: No Cyanosis. Right Upper Extremity in Sling, RUE distally neurovascularly intact.
Skin: Warm. Dry.
Neuro: AAO x 3 and Nonfocal/grossly intact
Psych: Normal mood
Assessment/Plan
#Orthostatic Hypotension - RESOLVED - Suspected Secondary to Hypovolemia (in setting of poor PO intake) as well Aortic Stenosis
#Aortic Stenosis on Echocardiogram This Hospitalization
-Encourage PO intake
-Consulted cardiology given patient's orthostatic hypotension on 02/26/24 and echocardiogram findings of aortic stenosis
-Compression socks
-Lisinopril stopped; BP stable, and orthostatics look better this AM
-Hold Lisinopril on discharge; can use midodrine starting at 2.5mg tid if orthostatic hypotension recurs
-Vitamin B12 level is high
-TSH WNL
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
-Sodium improved from 126 to 130 then to 129 then to 130
-Per relay technician, baseline sodium ranges 126-132 since 2022
-Received 1 L normal saline in the ER and also received 3% saline
-Nephrology consulted, recommendations appreciated
-Received SAMSCA this hospitalization
-Encourage PO intake
-Daily PO FR 48 ounces
-Recheck BMP in 1 week as per discussion with on-call relay technician on February 29, 2024
-Maintain off SSRI for now
#Constipation
-Started Senokot-S and Miralax bowel regimen; continue
#Fatigue, weakness due to poor oral intake
-Nutrition consult
-PT/OT consult
# Right proximal humerus fracture from fall
# T12 Compression Fracture
-Orthopedics consulted, recommendations appreciated
-Oxycodone as needed for pain
-Lidocaine patch for back
-Hold Vicodin
-Nonoperative management
-Non-weight bearing to the right arm
-Wear RUE sling at all times, removing for dressing and bathing only.
-PT/OT evaluation.
-Follow up with orthopedics outpatient in one week for repeat x-ray of shoulder.
# Leukocytosis likely stress reaction
-WBC 14.1, improving
# Grief, Depression
# Decreased Appetite, with poor PO intake
-Patient was prescribed Cymbalta recently, her son earlier this year
-Daughter mentioned Cymbalta may be causing patient some nausea
-Psychiatry consulted, recommendations appreciated: Cymbalta stopped, after hyponatremia and nausea resolve can consider Remeron or Wellbutrin
-Appreciate psychiatry re-evaluation; no need for 1:1 sitter at this time
# History of COPD
-Patient is not in exacerbation
-Trelegy continued
# Essential hypertension
-Lisinopril stopped due to orthostatic hypotension
#Underweight
# DVT prophylaxis
-Lovenox
# CODE STATUS
-Full code
Anticipated Discharge: 24 - 48 hours
Subjective/Interval History
-
Date of Service: February 29, 2024
Patient was seen and examined. She denied any new symptoms, she had breakfast this morning and was in a much better mood.
Objective Data
-
Labs:
Laboratory Results
02/29/24
07:22
WBC 10.9 H
Hgb 12.0
Hct 33.4 L
Plt Count 195
Sodium 127 L
Potassium 4.2
Chloride 93 L
Carbon Dioxide 27
BUN 28 H
Creatinine 0.6
Glucose 90
Calcium 9.5
Vital Signs:
Vital Signs
Temp Pulse Resp BP Pulse Ox
97.3 F 82 18 134/79 97
02/29/24 07:51 02/29/24 07:53 02/29/24 07:53 02/29/24 07:51 02/29/24 07:53
I&O
02/28/24 02/29/24 03/01/24
06:59 06:59 06:59
Intake Total 1680 / 1680 1320 / 1320
Balance 1680 / 1680 1320 / 1320
[2024-02-29] MEDS: MIRALAX 17 GRAMS PO (11:30)
[2024-02-29] MEDS: SENOKOT-S 1 TABLET PO ×2 (11:30→19:48)
[2024-02-29] MEDS: OCUVITE SOFTGEL 1 CAP PO ×2 (11:30→19:48)
--- NOTE | 2024-02-29 14:01 | PTCARENOTE ---
pt refuses Aricept for Parkinson's stating it gives her nightmares. Daughter came and confirmed this. That it was moved from night to day. It was given 02/27 am. Daughter stated pt called her this AM stating she had a terrible nightmare and probably
should not take, trying to explain med was given at 0800 but agreed should be held. Dr. Goldberg aware.
--- NOTE | 2024-02-29 16:11 | CM ---
Addendum entered by Judy Pal 02/29/24 16:34:
Fax to [facility] was completed.
Original Note:
Patient has been accepted to [facility] for STR and residential. Requires insurance auth. Submitted through [employer], Reference Certification # is [id number]. Attempted to fax records to [facility] @ [phone] X3. Continually
busy. Called [facility] to confirm # which is correct. They do not have a secondary fax #. Will continue attempts.
[2024-02-29] MEDS: TYLENOL PO (16:48)
[2024-02-29] MEDS: LOVENOX 40 MG SC (17:47)
[2024-02-29] MEDS: VITAMIN B-6 100 MG PO (21:41)
[2024-03-01] MEDS: TYLENOL 650 MG PO ×5 (04:54→19:42)
[2024-03-01 07:25] VITALS: BP 131/78
[2024-03-01 07:26] LABS: Hematocrit 33.1 % (37.0-47.0); Hemoglobin 11.8 g/dL (12.0-16.0); Mean Corp Hgb Conc. 35.6 g/dL (33.0-37.0); Mean Corpuscular Hgb 29.5 pg (27.0-31.0); Mean Corpuscular Volume 82.8 fL (81.0-99.0); Mean Platelet Volume 9.6 fL (7.4-10.4); Platelet Count 192 10^3/uL (130-400); Red Cell Dist. Width 13.5 % (11.5-14.5); White Blood Cell Count 10.5 10^3/uL (4.8-10.8)
[2024-03-01] MEDS: SPIRIVA RESPIMAT 2.5 MCG 2 PUFF INH (07:53)
[2024-03-01] MEDS: SYMBICORT 160/4.5 MCG INHALER 2 PUFF INH ×2 (07:54→20:58)
[2024-03-01 08:06] LABS: Blood Urea Nitrogen 22 mg/dl (7-17); Calcium 9.2 mg/dl (8.4-10.2); Carbon Dioxide 28 mmol/L (22-30); Chloride 94 mmol/L (98-107); Estimated Creatinine Clearance 61 ml/min; Glucose 93 mg/dl (70-99); Potassium 4.1 mmol/L (3.5-5.1); Sodium 127 mmol/L (135-145); eGFR > 60.00
[2024-03-01] MEDS: ARICEPT PO (08:19)
[2024-03-01] MEDS: MIRALAX 17 GRAMS PO (08:21)
[2024-03-01] MEDS: LIDOCAINE 4% PATCH 1 PATCH TOPICAL (08:23)
[2024-03-01] MEDS: OCUVITE SOFTGEL 1 CAP PO ×2 (08:24→19:43)
[2024-03-01] MEDS: OSCAL 500 + D 500 MG PO ×2 (08:24→19:42)
[2024-03-01] MEDS: VITAMIN D3 (cholecalciferol) 50 MCG PO ×2 (08:25→19:42)
[2024-03-01] MEDS: SENOKOT-S 1 TABLET PO (08:25)
[2024-03-01] MEDS: VITAMIN B-12 500 MCG PO (08:25)
[2024-03-01] MEDS: SENOKOT PO ×2 (08:26→19:42)
--- NOTE | 2024-03-01 10:59 | W.PN.HOSP.TC ---
Today's Communication/Plan
-
Discussed with case management today: Auth is pending for SNF at [place]
Otherwise patient is doing relatively well
Assessment / Plan
Assessment / Plan
Physical Exam
General: Not in acute distress
HEENT: Normocephalic
Respiratory: Clear to Auscultation Bilaterally
Cardiac: S1/S2 and Regular Rhythm
GI: Soft, Non Tender, Non Distended and Normal Bowel Sounds
Musculoskeletal: No Cyanosis. Right Upper Extremity in Sling, RUE distally neurovascularly intact.
Skin: Warm. Dry.
Neuro: AAO x 3 and Nonfocal/grossly intact
Psych: Normal mood
Assessment/Plan
#Orthostatic Hypotension - RESOLVED - Suspected Secondary to Hypovolemia (in setting of poor PO intake) as well Aortic Stenosis
#Aortic Stenosis on Echocardiogram This Hospitalization
-Encourage PO intake
-Consulted cardiology given patient's orthostatic hypotension on 02/26/24 and echocardiogram findings of aortic stenosis
-Compression socks
-Lisinopril stopped; BP stable, and orthostatics look better this AM
-Hold Lisinopril on discharge; can use midodrine starting at 2.5mg tid if orthostatic hypotension recurs
-Vitamin B12 level is high
-TSH WNL
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
-Sodium improved from 126 to 130 then to 129 then to 130
-Per house wirer, baseline sodium ranges 126-132 since 2022
-Received 1 L normal saline in the ER and also received 3% saline
-Nephrology consulted, recommendations appreciated
-Received SAMSCA this hospitalization
-Encourage PO intake
-Daily PO FR 48 ounces
-Recheck BMP within 1 week (of discharge) as per discussion with on-call house wirer on February 29, 2024, current sodium is within baseline
-Maintain off SSRI for now
#Constipation
-Started Senokot-S and Miralax bowel regimen; continue to monitor constipation
#Fatigue, weakness due to poor oral intake
-Nutrition consult
-PT/OT consult
# Right proximal humerus fracture from fall
# T12 Compression Fracture
-Orthopedics consulted, recommendations appreciated
-Oxycodone as needed for pain
-Lidocaine patch for back
-Hold Vicodin
-Nonoperative management
-Non-weight bearing to the right arm
-Wear RUE sling at all times, removing for dressing and bathing only.
-PT/OT evaluation.
-Follow up with orthopedics outpatient in one week for repeat x-ray of shoulder.
# Leukocytosis - RESOLVED - likely stress reaction
# Grief, Depression
# Decreased Appetite, with poor PO intake
-Patient was prescribed Cymbalta recently, her son earlier this year
-Daughter mentioned Cymbalta may be causing patient some nausea
-Psychiatry consulted, recommendations appreciated: Cymbalta stopped, after hyponatremia and nausea resolve can consider Remeron or Wellbutrin
-Appreciate psychiatry re-evaluation; no need for 1:1 sitter at this time
-Patient does not want to take her Donepezil anymore since she says it is causing her nightmares
# History of COPD
-Patient is not in exacerbation
-Trelegy continued
# Essential hypertension
-Lisinopril stopped due to orthostatic hypotension
#Underweight
# DVT prophylaxis
-Lovenox
# CODE STATUS
-Full code
Anticipated Discharge: 24 - 48 hours
Subjective/Interval History
-
Date of Service: March 01, 2024
Patient was seen and examined. She reported no pain or any other complaints, except nightmares which she thinks is from her Aricept.
Objective Data
-
Labs:
Laboratory Results
03/01/24
06:46
WBC 10.5
Hgb 11.8 L
Hct 33.1 L
Plt Count 192
Sodium 127 L
Potassium 4.1
Chloride 94 L
Carbon Dioxide 28
BUN 22 H
Creatinine 0.6
Glucose 93
Calcium 9.2
Vital Signs:
Vital Signs
Temp Pulse Resp BP Pulse Ox
97.9 F 82 18 131/78 97
03/01/24 07:25 03/01/24 07:57 03/01/24 07:57 03/01/24 07:25 03/01/24 09:17
I&O
02/29/24 03/01/24 03/02/24
06:59 06:59 06:59
Intake Total 1320 / 1320 480 / 480
Balance 1320 / 1320 480 / 480
[2024-03-01 12:42] VITALS: BP 142/103; PULSE 116; O2SAT 95
--- NOTE | 2024-03-01 13:51 | CM ---
CM attempted to call [facility] to follow up on auth.
Spoke with Jesús, who explained that provider services are closed today and CM will have to follow up tomorrow/Saturday.
[facility] # [phone]
[2024-03-01 14:56] VITALS: BP 106/86; BP 129/85; BP 130/86; PULSE 104; PULSE 126; PULSE 96
[2024-03-01 14:57] VITALS: BP 129/85
[2024-03-01] MEDS: LOVENOX 40 MG SC (17:33)
--- NOTE | 2024-03-01 19:21 | PTCARENOTE ---
pt continues to c/o lower back pain and burning. pt has improved with walking no c/o shoulder pain. TT Dr. Goldberg, new order for Gabapentin , =/+ Flexeril.
[2024-03-01] MEDS: SENOKOT-S PO (19:42)
[2024-03-01] MEDS: NEURONTIN 100 MG PO (21:01)
[2024-03-01] MEDS: VITAMIN B-6 100 MG PO (21:01)
[2024-03-01 23:09] VITALS: BP 135/90
[2024-03-02] MEDS: TYLENOL 650 MG PO ×3 (00:04→11:37)
[2024-03-02] MEDS: TYLENOL PO (05:34)
[2024-03-02 07:00] VITALS: BP 121/82
[2024-03-02] MEDS: SPIRIVA RESPIMAT 2.5 MCG 2 PUFF INH (07:54)
[2024-03-02] MEDS: SYMBICORT 160/4.5 MCG INHALER 2 PUFF INH (07:54)
[2024-03-02] MEDS: LIDOCAINE 4% PATCH 1 PATCH TOPICAL (08:21)
[2024-03-02] MEDS: ARICEPT PO (08:21)
[2024-03-02] MEDS: VITAMIN D3 (cholecalciferol) 50 MCG PO (08:22)
[2024-03-02] MEDS: OCUVITE SOFTGEL 1 CAP PO (08:22)
[2024-03-02] MEDS: OSCAL 500 + D 500 MG PO (08:22)
[2024-03-02] MEDS: VITAMIN B-12 500 MCG PO (08:22)
--- NOTE | 2024-03-02 09:00 | W.PN.HOSP.TC ---
Today's Communication/Plan
-
dc
Assessment / Plan
Assessment / Plan
Physical Exam
General: Not in acute distress
HEENT: Normocephalic
Respiratory: Clear to Auscultation Bilaterally
Cardiac: S1/S2 and Regular Rhythm
GI: Soft, Non Tender, Non Distended and Normal Bowel Sounds
Musculoskeletal: No Cyanosis. Right Upper Extremity in Sling, RUE distally neurovascularly intact.
Skin: Warm. Dry.
Neuro: AAO xto self and surroundings, forgetful, followed commands.
Psych: Normal mood
Assessment/Plan
#Orthostatic Hypotension - RESOLVED - Suspected Secondary to Hypovolemia (in setting of poor PO intake) as well Aortic Stenosis
#Aortic Stenosis on Echocardiogram This Hospitalization
-Encourage PO intake
-Consulted cardiology given patient's orthostatic hypotension on 02/26/24 and echocardiogram findings of aortic stenosis
-Compression socks
-Lisinopril stopped; BP stable, and orthostatics look better this AM
-Hold Lisinopril on discharge; can use midodrine starting at 2.5mg tid if orthostatic hypotension recurs
-Vitamin B12 level is high
-TSH WNL
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
-Sodium improved from 126 to 130 then to 129 then to 130
-Per restaurant service manager, baseline sodium ranges 126-132 since 2022
-Received 1 L normal saline in the ER and also received 3% saline
-Nephrology consulted, recommendations appreciated
-Received [facility] this hospitalization
-Encourage PO intake
-Daily PO FR 48 ounces
-Recheck BMP within 1 week (of discharge) as per discussion with on-call restaurant service manager on February 29, 2024, current sodium is within baseline
-Maintain off SSRI per nephrology.
#Constipation
-Started Senokot-S and Miralax bowel regimen; continue to monitor constipation
#Fatigue, weakness due to poor oral intake
-Nutrition consult
-PT/OT consult
# Right proximal humerus fracture from fall
# T12 Compression Fracture
-Orthopedics consulted, recommendations appreciated
-Oxycodone as needed for pain
-Lidocaine patch for back
-Hold Vicodin
-Nonoperative management
-Non-weight bearing to the right arm
-Wear RUE sling at all times, removing for dressing and bathing only.
-PT/OT evaluation.
-Follow up with orthopedics outpatient in one week for repeat x-ray of shoulder.
# Leukocytosis - RESOLVED - likely stress reaction
# Grief, Depression
# Decreased Appetite, with poor PO intake
-Patient was prescribed Cymbalta recently, her son earlier this year
-Daughter mentioned Cymbalta may be causing patient some nausea
-Psychiatry consulted, recommendations appreciated: Cymbalta stopped, after hyponatremia and nausea resolve can consider Remeron or Wellbutrin
-Appreciate psychiatry re-evaluation; no need for 1:1 sitter at this time
-Patient does not want to take her Donepezil anymore since she says it is causing her nightmares
# History of COPD
-Patient is not in exacerbation
-Trelegy continued
# Essential hypertension
-Lisinopril stopped due to orthostatic hypotension
#Underweight
# DVT prophylaxis
-Lovenox
# CODE STATUS
-Full code
Total discharge time spent to see the patient, examine the patient on the floor, review data and lab results, discuss discharge plan with patient, nursing staff around 65 minutes
Anticipated Discharge: Today
Subjective/Interval History
-
Date of Service: March 02, 2024
She slept well
No pain in chest or abdomen
Objective Data
-
Vital Signs:
Vital Signs
Temp Pulse Resp BP Pulse Ox
97.9 F 100 16 121/82 93
03/02/24 07:00 03/02/24 08:06 03/02/24 08:06 03/02/24 07:00 03/02/24 08:06
I&O
03/01/24 03/02/24 03/03/24
06:59 06:59 06:59
Intake Total 480 / 480 960 / 960
Output Total 300 / 300
Balance 480 / 480 660 / 660
[2024-03-02] MEDS: SENOKOT PO (09:18)
[2024-03-02] MEDS: MIRALAX PO (09:18)
[2024-03-02] MEDS: SENOKOT-S PO (09:19)
[2024-03-02 12:35] VITALS: BP 115/77; BP 134/91; PULSE 93; O2SAT 94
--- NOTE | 2024-03-02 13:04 | CM ---
Addendum entered by Jackelyn Grajeda RN 03/02/24 14:00:
Plan: Discharge to [facility] today. Per daughter and patient, wheelchair van will need to be arranged.
Call report to: [phone]
Fax report to: [phone]
Transport form on chart.
Addendum entered by Jackelyn Grajeda RN 03/02/24 13:50:
[employer] call and approved the patient from 03/02-03/13; NRD 03/14; Auth # [id number]; reviewer will be [facility]; fax clinicals ([phone]).
Original Note:
Reviewed the chart notes and spoke with the patient at the bedside. IMM signed and placed on chart. Awaiting determination from [facility] insurance for placement to [facility].
[2024-03-02 14:49] VITALS: BP 102/69
--- NOTE | 2024-03-02 15:24 | W.DCSUMMARY ---
Discharge Summary
Discharge Data
Date of Admission: 02/25/24
Date of Discharge: 03/02/24
-
Pending Results: No
Hospital Course
83 years old female presented after a fall. She had a fall on February 11 where she landed on her back. She was found to have a T12 compression fracture. She was taking naproxen. She had also a fracture of her right humerus. She denied any
lightheadedness or dizziness. She was found to have low sodium at 126. History of chronic hyponatremia. Her anti-depressant medications were stopped. 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 She did not have
confusion. Patient was followed by health care administrator, she was given normal saline infusion. She received tolvaptan with the fluid restriction. Her sodium improved to 129-130. Orthopedic doctor evaluated patient cessation recommended. Controlled with
sling and limited mobility with outpatient follow-up. Patient was evaluated by physical therapy recommended fpc facility placement. Patient had orthostatic hypotension. Blood pressure medications were stopped. Cable Placer
recommended as needed midodrine. Patient remained hemodynamically stable and was discharged in stable condition.
Discharge Plan
-
Patient Disposition: Alf/SNF
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
-Right proximal humerus fracture following a mechanical fall, T12 compression fracture, continue nonoperative management. She is to be non weight bearing to the right arm. She is to wear the sling at all times, removing for dressing and bathing
only. In regards to her T12 compression fracture, continue with conservative management. Continue with pain management as needed. PT/OT evaluation.
-Orthostatic Hypotension. Remain off of lisinopril; can use midodrine starting at 2.5mg tid if orthostatic hypotension recurs.
- Aortic stenosis, mild.
- COPD.
- Grief, Depression.
Patient was prescribed Cymbalta recently, her son earlier this year. Daughter mentioned Cymbalta may be causing patient some nausea
Psychiatry consulted, recommendations: Cymbalta stopped ( caused nausea), can consider Remeron or Wellbutrin in future, at this point would not restart an antidepressant agent.
Patient did not want to take her Donepezil anymore since was causing her nightmares.
Condition: Good
Diet: As tolerated and Regular
Referrals:
Zee Garland, DO [Family Provider] - in one to two weeks
Prescriptions:
New
lidocaine 4 % Adhesive Patch,Medicated
1 patch topical DAILY Qty: 30 0RF
acetaminophen [Tylenol Extra Strength] 500 mg tablet
1,000 mg PO Q6H PRN (Reason: fever or pain) Qty: 30 0RF
Continued
calcium carbonate-vitamin D3 600 mg-5 mcg (200 unit) Tablet
1 tab PO BID
cyanocobalamin (vitamin B-12) 500 mcg Tablet
500 mcg PO DAILY
pyridoxine (vitamin B6) 100 mg Tablet
100 mg PO HS
cholecalciferol (vitamin D3) [Vitamin D3] 50 mcg (2,000 unit) Tablet
50 mcg PO BID
PreserVision AREDS-2 250-90-40-1 mg Capsule
1 tab PO BID
glucosamine mancia 2KCl-chondroit [Glucosamine-Chondroitin 3X Str] 750-600 mg Tablet
1 tab PO BID
Trelegy Ellipta 200-62.5-25 mcg Blister With Device
1 inh INHALATION R DAILY
Discontinued
donepezil 10 mg Tablet
10 mg PO DAILY
lisinopril 10 mg Tablet
10 mg PO DAILY
duloxetine 20 mg Capsule,Delayed Release(Dr/Ec)
20 mg PO BID
hydrocodone-acetaminophen 5-300 mg tablet
1 tab PO Q8
Discharge Orders:
Discharge Patient (As Directed); Ordered 03/02/24
Ordered By: Nuris Carrillo
Discharge Date and Time
Discharge Date/Time: 03/02/24 15:45
Print Language: ALBANIAN
== END 2024-03-02 15:45 | DRG 644 ==
LOC: 2 SOUTH 15:23
PROVIDERS: Physician Assistant; Registered Nurse; Specialist; ADMITTING PHYSICIAN Hospitalist; ATTENDING PHYSICIAN Internal Medicine; CONSULT PHYSICIAN Internal Medicine; CONSULT PHYSICIAN Specialist; CONSULT PHYSICIAN Student in an Organized Health Care Education/Training Program; EMERGENCY PHYSICIAN Emergency Medicine; FAMILY PHYSICIAN Family Medicine; OTHER PHYSICIAN Psychiatry & Neurology Psychiatry
DX: E22.2 Syndrome of inappropriate secretion of antidiuretic hormone (principal); E87.20 Acidosis, unspecified; S42.201A Unspecified fracture of upper end of right humerus, initial encounter for closed fracture; S22.080A Wedge compression fracture of T11-T12 vertebra, initial encounter for closed fracture; I47.10 Supraventricular tachycardia, unspecified; Z68.1 Body mass index [BMI] 19.9 or less, adult; I95.1 Orthostatic hypotension; W18.30XA Fall on same level, unspecified, initial encounter; J44.9 Chronic obstructive pulmonary disease, unspecified; I35.0 Nonrheumatic aortic (valve) stenosis; R63.6 Underweight; Z75.1 Person awaiting admission to adequate facility elsewhere
CPT/HCPCS: 72110; 73060; 80048; 80053; 82570; 82607; 83930; 83935; 84300; 84443; 84484; 85025; 85027; 93005; 93306; 94640; 96361; 96374; 97116; 97129; 97163; 97166; 97530; 97535; 99285

== ENCOUNTER → 2024-04-09 11:06 | Outpatient (REF) | payer OTHER, SELFPAY | LOC: MRI 11:06 | PROVIDERS: ATTENDING PHYSICIAN Orthopaedic Surgery; FAMILY PHYSICIAN Internal Medicine | DX: S32.020A Wedge compression fracture of second lumbar vertebra, initial encounter for closed fracture (principal); M54.6 Pain in thoracic spine | CPT/HCPCS: 72146; 72148 ==

== ENCOUNTER 2024-05-17 16:11 | Emergency (ER) | payer OTHER, SELFPAY ==
[2024-05-17 16:16] VITALS: BP 139/94
--- NOTE | 2024-05-17 18:34 | ED.SKININJ ---
Addendum entered and electronically signed by Najma Singh NP 06/11/24 16:32:
Right loza skin tear measuring approx 10.5cm
Original Note:
HPI-Injury
General
Chief Complaint: Skin Surface Trauma
Source: patient
Exam Limitations: none
Time Seen by Provider: 05/17/24 17:11
Nursing documentation reviewed up to this point in time: agreed with
History of Present Illness-Injury
Is this injury a work related problem?: No
Is pt an associate of [facility] [facility]?: No
Initial Injury comments:
Patient states she walked into something in garage last PM. Sustained large skin tear to right loza. Brought to ED by family for eval. reports tD UTD
Past History
Past History
ED Past Medical History: COPD
ED Past Surgical History: None and Other (Tubal ligation)
Patient has exhibited threatening behavior?: No
PSI?: No
Social History
Tobacco: Former smoker
Personal: Single
Living: alone
Family History
Family History: Negative Diabetes or CAD
Review of Systems
Review of Systems
Allergies reviewed?: Yes
All Other Systems: ROS reviewed and negative except as documented in HPI and ROS
Constitutional: Reports no symptoms
Musculoskeletal: Reports no symptoms
Skin: Reports other (Large skin tear to right loza)
Neurological: Reports no symptoms
Psychiatric: Reports no symptoms
Skin Exam
Laceration
Right Lower Leg:
Orientation: C shaped
Type of Laceration: simple
Any active bleeding?: no active bleeding
Distal skin color and temperature: normal-warm & good color
Normal distal neurovascular exam: Yes
Range of motion: full
Phy Exam
General Physical Exam
General Presentation: well appearing and no apparent distress
General age: appears stated age
General Skin: warm and dry
General Habitus: normal
General Mental: alert
General Hydration: appears well hydrated
Musculoskeletal Exam
Musculoskeletal Exam: full ROM and neuro vasc intact
Skin Exam
Skin Exam: normal color, warm/dry and no rash
Psychiatric Exam
Psychiatric Exam: normal mood/affect
Course
Orders/Labs/Results
Orders:
Orders
05/17/24 18:26
Cephalexin Monohydrate [Keflex] 500 mg PO NOW STA
Vital Signs
Initial and Last Documented VS:
Initial Vital Signs
Temp Pulse Resp BP Pulse Ox
97.8 F 84 16 139/94 96
05/17/24 16:16 05/17/24 16:16 05/17/24 16:16 05/17/24 16:16 05/17/24 16:16
Last Documented Vital Signs
Temp Pulse Resp BP Pulse Ox
97.8 F 84 16 139/94 96
05/17/24 16:16 05/17/24 16:16 05/17/24 16:16 05/17/24 16:16 05/17/24 16:16
Procedures
Laceration Closure
Right Loza SKin Tear:
Status of Wound: clean
Description of Wound Edges: sharp
Preparation: cleaned with saline
Anesthesia: 1% Lidocaine with epi
Revision/Debridement: routine- no revision
Wound exploration: explored to base- no FB
Type of Closure: single layer closure and Dermabond-skin glue
Skin Closure Material: 4-0 prolene
*Critical Care Note
Total Time (30-74mins, 75-104mins- exclusive of procedures): Not Applicable
ED Attending Note
-
Portions of this chart may have been created with voice recognition software.� Occasional wrong word or��sound alike� substitutions may have occurred due to the inherent limitations of voice recognition software.
Discharge Plan
Departure
Patient Disposition: Home (Routine Discharge)
Date of Disposition: 10/06/24
Time of Disposition: 18:27
Patient with high blood pressure during this ER visit?: No
Condition: Good
Covid-19: Not Applicable
Discharge Problem:
Skin tear of right lower leg without complication
Instructions: Laceration Repair With Stitches (DC)
Prescriptions:
New
cephalexin 500 mg capsule
500 mg PO BID 7 Days Qty: 14 0RF
No Action
calcium carbonate-vitamin D3 600 mg-5 mcg (200 unit) Tablet
1 tab PO BID
cyanocobalamin (vitamin B-12) 500 mcg Tablet
500 mcg PO DAILY
pyridoxine (vitamin B6) 100 mg Tablet
100 mg PO HS
cholecalciferol (vitamin D3) [Vitamin D3] 50 mcg (2,000 unit) Tablet
50 mcg PO BID
PreserVision AREDS-2 250-90-40-1 mg Capsule
1 tab PO BID
glucosamine mancia 2KCl-chondroit [Glucosamine-Chondroitin 3X Str] 750-600 mg Tablet
1 tab PO BID
Trelegy Ellipta 200-62.5-25 mcg Blister With Device
1 inh INHALATION R DAILY
lidocaine 4 % Adhesive Patch,Medicated
1 patch topical DAILY Qty: 30 0RF
acetaminophen [Tylenol Extra Strength] 500 mg tablet
1,000 mg PO Q6H PRN (Reason: fever or pain) Qty: 30 0RF
Referrals:
Zee Garland, DO [Family Provider] - (Sutures can be removed in 7-10 days.)
Interventions
Interventions:
*Risk Screen - Suicide Last Done: 05/17/24 16:21
*Neglect/Abuse Screening Last Done: 05/17/24 16:21
Discharge Date and Time
Print Language: ROMANIAN
[2024-05-17 18:56] VITALS: BMI 18.4
[2024-05-17] MEDS: KEFLEX 500 MG PO (19:05)
[2024-05-17 19:16] VITALS: BP 150/81
== END 2024-05-17 19:19 | disposition home or self-care (01) ==
LOC: EMR 16:11
PROVIDERS: EMERGENCY PHYSICIAN Emergency Medicine; FAMILY PHYSICIAN Family Medicine
DX: S81.811A Laceration without foreign body, right lower leg, initial encounter (principal); W22.09XA Striking against other stationary object, initial encounter; Z87.891 Personal history of nicotine dependence
CPT/HCPCS: 99283; 12004

== ENCOUNTER → 2024-06-09 12:25 | Outpatient (REF) | payer OTHER, SELFPAY | LOC: WOUND 12:25 | PROVIDERS: ATTENDING PHYSICIAN Surgery; FAMILY PHYSICIAN Family Medicine | DX: L97.212 Non-pressure chronic ulcer of right calf with fat layer exposed (principal); R26.9 Unspecified abnormalities of gait and mobility; Z91.81 History of falling | CPT/HCPCS: 11042; 11045; 99213 ==

== ENCOUNTER → 2024-06-16 09:41 | Outpatient (REF) | payer OTHER, SELFPAY | LOC: WOUND 09:41 | PROVIDERS: ATTENDING PHYSICIAN Surgery; FAMILY PHYSICIAN Family Medicine | DX: L97.212 Non-pressure chronic ulcer of right calf with fat layer exposed (principal); R26.9 Unspecified abnormalities of gait and mobility; Z91.81 History of falling | CPT/HCPCS: 99213 ==

== ENCOUNTER → 2024-06-25 14:38 | Outpatient (REF) | payer OTHER, SELFPAY | LOC: WOUND 14:38 | PROVIDERS: ATTENDING PHYSICIAN Surgery; FAMILY PHYSICIAN Family Medicine | DX: L97.212 Non-pressure chronic ulcer of right calf with fat layer exposed (principal); R26.9 Unspecified abnormalities of gait and mobility; Z91.81 History of falling | CPT/HCPCS: 11042; 11045 ==

== ENCOUNTER → 2024-07-02 14:35 | Outpatient (REF) | payer OTHER, SELFPAY | LOC: WOUND 14:35 | PROVIDERS: ATTENDING PHYSICIAN Surgery; FAMILY PHYSICIAN Family Medicine | DX: L97.212 Non-pressure chronic ulcer of right calf with fat layer exposed (principal); R26.9 Unspecified abnormalities of gait and mobility; Z91.81 History of falling | CPT/HCPCS: 11042 ==

== ENCOUNTER → 2024-07-16 15:10 | Outpatient (REF) | payer OTHER, SELFPAY | LOC: WOUND 15:10 | PROVIDERS: ATTENDING PHYSICIAN Surgery; FAMILY PHYSICIAN Family Medicine | DX: L97.212 Non-pressure chronic ulcer of right calf with fat layer exposed (principal); Z91.81 History of falling; R26.9 Unspecified abnormalities of gait and mobility | CPT/HCPCS: 11042 ==

== ENCOUNTER → 2024-07-30 10:20 | Outpatient (REF) | payer OTHER, SELFPAY | LOC: WOUND 10:20 | PROVIDERS: ATTENDING PHYSICIAN Surgery | DX: L97.212 Non-pressure chronic ulcer of right calf with fat layer exposed (principal); Z91.81 History of falling; R26.9 Unspecified abnormalities of gait and mobility | CPT/HCPCS: 11042 ==

== ENCOUNTER 2024-08-11 18:27 | Inpatient (IN) | payer OTHER, SELFPAY ==
[2024-08-11] VITALS (11 sets, daily range): BP systolic 129–197; BP diastolic 84–127; BMI 17.8
[2024-08-11 12:35] LABS: % Basophils 0.4 % (0-2); % Eosinophils 0.4 % (0-6); % Immature Granulocytes 0.9 % (0-0.5); % Lymphocytes 5.4 % (20.5-51.1); % Monocytes 18.2 % (1.7-9.3); % Neutrophils 74.7 % (42.2-75.2); Absolute Immature Granulocytes 0.1 10^3/uL (0-0.05); Absolute Lymphocytes 0.5 10^3/uL (1.2-3.4); Absolute Monocytes 1.8 10^3/uL (0.1-0.6); Absolute Neutrophils 7.4 10^3/uL (1.4-6.5); Hematocrit 41.1 % (37.0-47.0); Hemoglobin 13.9 g/dL (12.0-16.0); Mean Corp Hgb Conc. 33.8 g/dL (33.0-37.0); Mean Corpuscular Hgb 28.4 pg (27.0-31.0); Mean Platelet Volume 9.1 fL (7.4-10.4); Nucleated Red Blood Cells % 0 %; Platelet Count 252 10^3/uL (130-400); Red Blood Cell Count 4.89 10^6/uL (4.20-5.40); White Blood Cell Count 9.9 10^3/uL (4.8-10.8)
[2024-08-11 12:40] LABS: ALT (SGPT) 39 U/L (0-35); AST (SGOT) 54 U/L (14-36); Albumin 3.6 g/dl (3.5-5.0); Alkaline Phosphatase 119 U/L (38-126); Blood Urea Nitrogen 17 mg/dl (7-17); Calcium 8.9 mg/dl (8.4-10.2); Carbon Dioxide 30 mmol/L (22-30); Chloride 90 mmol/L (98-107); Estimated Creatinine Clearance 55 ml/min; Glucose 116 mg/dl (70-99); Potassium 3.9 mmol/L (3.5-5.1); Sodium 128 mmol/L (135-145); Total Protein 6.2 g/dl (6.3-8.2); eGFR > 60.00
[2024-08-11 12:44] LABS: Troponin I < 0.012 ng/ml
--- NOTE | 2024-08-11 13:20 | EDRN ---
ED Resident Dr. Minor in room w/pt.
--- NOTE | 2024-08-11 13:48 | ED.GENMED ---
History of Present Illness
<Santiago Minor DO, Resident - Last Filed: 08/11/24 14:59>
General
Chief Complaint: Breathing Problem
Source: patient, records and family
Time Seen by Provider: 08/11/24 13:09
History of Present Illness
History of Present Illness:
84-year-old female past medical history of COPD, hypertension, previous vertebral compression secondary to fall presents for shortness of breath for approximately 2 to 3 days in duration. Patient reports no inciting event, she has not been sick and
has had no sick contacts. Patient reports she does not use oxygen at home with baseline and uses 2 inhalers, Trelegy and albuterol rescue. Patient reports she has not used her albuterol rescue inhaler today, only Trelegy. Patient was recently
here for a fall in February, she received a vertebral compression fracture and her primary care physician continued all blood pressure medications due to concerns for orthostatic hypotension. She was recently only started back on 5 mg lisinopril,
patient hypertensive 193/127 in ED. Patient has no symptoms of hypertension, no headache, no changes in vision, no dizziness. Patient is endorsing a cough, patient reports cough is nonproductive however she is coughing up phlegm and swallowing it.
Patient is also endorsing increased confusion and word finding difficulties. In emergency department patient is hypertensive, tachycardic 120, tachypneic 24 afebrile and satting 89% on room air. Patient does appear to have labored breathing and
is breathing with pursed lips. Of note patient reports quitting smoking 6 years ago, she was never screened for lung carcinoma.
Past History
<Santiago Minor DO, Resident - Last Filed: 08/11/24 14:59>
Past History
ED Past Medical History: COPD
ED Past Surgical History: None and Other (Tubal ligation)
Patient has exhibited threatening behavior?: No
PSI?: No
Social History
Tobacco: Former smoker
Personal: Single
Living: alone
Family History
Family History: Negative Diabetes or CAD
Review of Systems
<Santiago Minor DO, Resident - Last Filed: 08/11/24 14:59>
Review of Systems
Constitutional: Reports no symptoms; Denies fever or fatigue
Respiratory: Reports cough (Productive) and trouble breathing
Cardiac: Reports no symptoms
ABD/GI: Reports no symptoms
: Reports no symptoms
Musculoskeletal: Reports no symptoms
Neurological: Reports other (Increased confusion, word finding difficulties)
Phy Exam
<Santiago Minor DO, Resident - Last Filed: 08/11/24 14:59>
General Physical Exam
General Presentation: mild distress
Cardiovascular Exam
Cardiovascular Exam: no edema, no murmur and tachycardia
Pulmonary Exam
Pulmonary Exam: lungs clear, no respiratory distress, no rales, no crackles, no rhonchi, no wheezing and other (Cough, productive of phlegm. Pursed lip breathing, slight respiratory distress)
Respiratory Effort: tachypnea
Oxygen Status: oxygen 2 liters via NC
Gastrointestinal Exam
Gastrointestinal Exam: non tender, soft and non distended
Scores
<Deric Rey DO - Last Filed: 08/13/24 18:51>
Heart Failure Risk
Heart Failure Risk Score: Not Applicable
Course
<Santiago Minor DO, Resident - Last Filed: 08/11/24 14:59>
Orders/Labs/Results
Orders:
Orders
08/11/24 12:03
Electrocardiogram (*1) Urgent
Reason for Study: Shortness of Breath
Other Reason for Exam: SOB
EKG- Treatment ONCE
08/11/24 12:09
Complete Blood Count/With Diff Urgent
Comprehensive Metabolic Panel Urgent
Troponin I Urgent
08/11/24 13:42
CR Chest - 2 Views Urgent
Comment:
Reason For Exam: Shortness of breath
08/11/24 13:53
Add On- LAB Urgent
Comments:: tube in lab
Tests Added?: Pro-BNP
08/11/24 14:58
CT Chest PE Study Urgent
Comment:
Reason For Exam: sob tachy
Levalbuterol [Xopenex 0.63 mg Inhalant Solution] 0.63 mg INH R NOW STA
08/11/24 Dinner
Regular
At Your Request: Limited Participation
Does patient need a safe tray?: No
Fluid Restriction: 1440 mL/day (48 oz)
08/11/24 15:02
Levalbuterol [Xopenex 1.25 mg Inhalant Solution] 1.25 mg INH R NOW STA
08/11/24 16:25
Add On- LAB Urgent
Tests Added?: Pro-BNP
08/11/24 17:19
NT-proBNP Urgent
08/11/24 17:23
COVID-19 Antigen Urgent
Source: Nasal Swab
Influenza A+B Rapid Molecular Urgent
LISA Source: Nasal Swab
Specimen Description:
08/11/24 18:03
HydrALAZINE [Apresoline] 10 mg IV Q6HPRN PRN
08/11/24 18:04
Admit/Transfer Patient As Directed
Co-Sign Provider:
Level of Care: Inpatient admission
Assign to:: Telemetry
Physician / Group: irena hopper
Diagnosis: Acute bronchitis concern bilat pna aspiration, Tachycardia
Reason for Telemetry: Arrhythmia
Date to Stop Telemetry: 08/14/24
Time to Stop Telemetry: 11:00
Reason for Hospitalization: Acute bronchitis concern bilat pna aspiration, Tachycardia
Expected length of stay greater than two midnights?: Yes
ELOS- Estimated Length of Stay in days: 5
I certify the patient meets the requirements for IP care: Yes
Code Status As Directed
Resuscitation Status: Do not resuscitate
Reached after discussion with pt or family/Healthcare POA: Yes
Based on pt advanced directive or healthcare POA form: Yes
Decision communicated with: Per patient
DNR Bracelet Application ONCE
08/11/24 18:08
PRN Pain Medication Management As Directed
May give lesser potent ordered pain med per pt: Yes
preference::
Protocol:: Medication orders for pain may be administered in a
manner that supports deferring to patient preference
when the pt is:
- Requesting an ordered lesser potent pain medication.
Least to most potent pain medications are defined
as: acetaminophen < NSAID < tramadol < opioids
(morphine, oxycodone, hydromorphone).
- Requesting a lesser dose of the same medication IF
ORDERED.
- Requesting a less intrusive route of administration
if both routes are prescribed by the provider (PO <
IV).
08/11/24 18:13
Dexamethasone Sod Phosphate [Decadron] 10 mg IV NOW STA
08/11/24 18:14
DIETARY CONSULT Routine
Reason for Consult: cachexia
TSH Reflex To Free T4 Routine
08/11/24 18:15
PULMONARY CONSULT Routine
Consulting Provider: Bernard Guidry
Was physician already notified: Yes
Reason for consult: viral bronchitis pna , sinus tachycardia
08/11/24 18:23
Add On- LAB Urgent
Tests Added?: tsh with free t4 reflex
08/11/24 18:24
Serum Osmolality Routine
Urine Osmolality Random [Osmolality, Random Urine] Routine
Date Specimen was Collected: 08/12/24
Time Specimen was Collected: 07:40
Urine Sodium Routine
Date Specimen was Collected: 08/12/24
Time Specimen was Collected: 07:40
08/11/24 19:36
Acetaminophen [Tylenol] 650 mg PO Q4HPRN PRN
Levalbuterol [Xopenex 1.25 mg Inhalant Solution] 1.25 mg INH R Q6HPRN PRN
Tramadol HCl [Ultram] 50 mg PO DAILYPRN PRN
08/11/24 19:36
Respiratory Culture/Gram Stain Routine
LISA Source: Sputum
Specimen Description:
Activity As Directed
Activity Level: With Assistance
Intake/ Output As Directed
Frequency: Per unit guidelines
Vital Signs As Directed
Frequency: Per unit guidelines
Weight As Directed
Frequency: Daily
Xopenex Reason for Use As Directed
Reason for ordering Xopenex instead of Albuterol: Tachycardia
O2 Therapy [RESP] Routine
Nasal Cannula Liter Flow: 2 LPM
Titrate/Wean O2 to maintain O2 sat greater than (%): 92
Pulse Ox/spot Check [RESP] Routine
Quantity: 1
Ot Eval And Treat Routine
Pt Eval And Treat Routine
Activity Level: As Tolerated
DX Deep Vein Thrombosis Video Routine
08/11/24 20:00
Budesonide/Formoterol 160/4.5 [Symbicort 160/4.5 Mcg Inhaler] 2 puff INH R BID
Calcium Carbonate/Vitamin D3 [Oscal 500 + D] 500 mg PO BID
CefTRIAXone [Rocephin] 1,000 mg IV Q24H
Cholecalciferol (Vitamin D3) [VITAMIN D3 (cholecalciferol)] 50 mcg PO BID
Cyanocobalamin [Vitamin B-12] 500 mcg PO BID
Doxycycline [Vibramycin] 100 mg PO Q12
Heparin 5,000 units SC Q12
Levalbuterol [Xopenex 1.25 mg Inhalant Solution] 1.25 mg INH R TID
Pyridoxine [Vitamin B-6] 100 mg PO BID
Vit C/Vit E/Lutein/Min/Mather-3 [Ocuvite Softgel] 1 cap PO BID
08/11/24 21:40
Procalcitonin Urgent
PCT Algorithmm Indication: Respiratory
08/11/24 22:00
Escitalopram Oxalate [Lexapro] 10 mg PO HS
Lisinopril [Zestril] 5 mg PO HS
08/12/24 05:51
Complete Blood Count/With Diff IN AM
Comprehensive Metabolic Panel IN AM
08/12/24 06:00
Dexamethasone Sod Phosphate [Decadron] 4 mg IV Q12H
08/13/24 07:53
Complete Blood Count/With Diff IN AM
Comprehensive Metabolic Panel IN AM
08/14/24 06:00
Complete Blood Count/With Diff IN AM
Comprehensive Metabolic Panel IN AM
08/14/24 11:00
DC Protocol for Telemetry ONCE
08/15/24 06:00
Complete Blood Count/With Diff IN AM
Comprehensive Metabolic Panel IN AM
Abnormal Lab Results
08/11/24
12:09
Abs Immat Gran (auto) 0.1 H 10^3/uL
(0-0.05)
Absolute Neuts (auto) 7.4 H 10^3/uL
(1.4-6.5)
Absolute Lymphs (auto) 0.5 L 10^3/uL
(1.2-3.4)
Absolute Monos (auto) 1.8 H 10^3/uL
(0.1-0.6)
Immature Gran % 0.9 H %
(0-0.5)
Lymphocytes % 5.4 L %
(20.5-51.1)
Monocytes % 18.2 H %
(1.7-9.3)
Sodium 128 L mmol/L
(135-145)
Chloride 90 L mmol/L
(98-107)
Glucose 116 H mg/dl
(70-99)
AST 54 H U/L
(14-36)
ALT 39 H U/L
(0-35)
Total Protein 6.2 L g/dl
(6.3-8.2)
08/11/24 12:09
08/11/24 12:09
Vital Signs
Initial and Last Documented VS:
Initial Vital Signs
Temp Pulse Resp BP Pulse Ox
97.6 F 120 24 193/127 89
08/11/24 11:57 08/11/24 11:57 08/11/24 11:57 08/11/24 11:57 08/11/24 11:57
Last Documented Vital Signs
Temp Pulse Resp BP Pulse Ox
98.1 F 107 18 114/68 93
08/13/24 15:16 08/13/24 15:16 08/13/24 15:16 08/13/24 15:16 08/13/24 16:42
<Deric Rey, DO - Last Filed: 08/13/24 18:51>
Orders/Labs/Results
Orders:
Orders
08/11/24 12:03
Electrocardiogram (*1) Urgent
Reason for Study: Shortness of Breath
Other Reason for Exam: SOB
EKG- Treatment ONCE
08/11/24 12:09
Complete Blood Count/With Diff Urgent
Comprehensive Metabolic Panel Urgent
Troponin I Urgent
08/11/24 13:42
CR Chest - 2 Views Urgent
Comment:
Reason For Exam: Shortness of breath
08/11/24 13:53
Add On- LAB Urgent
Comments:: tube in lab
Tests Added?: Pro-BNP
08/11/24 14:58
CT Chest PE Study Urgent
Comment:
Reason For Exam: sob tachy
Levalbuterol [Xopenex 0.63 mg Inhalant Solution] 0.63 mg INH R NOW STA
08/11/24 Dinner
Regular
At Your Request: Limited Participation
Does patient need a safe tray?: No
Fluid Restriction: 1440 mL/day (48 oz)
08/11/24 15:02
Levalbuterol [Xopenex 1.25 mg Inhalant Solution] 1.25 mg INH R NOW STA
08/11/24 16:25
Add On- LAB Urgent
Tests Added?: Pro-BNP
08/11/24 17:19
NT-proBNP Urgent
08/11/24 17:23
COVID-19 Antigen Urgent
Source: Nasal Swab
Influenza A+B Rapid Molecular Urgent
LISA Source: Nasal Swab
Specimen Description:
08/11/24 18:03
HydrALAZINE [Apresoline] 10 mg IV Q6HPRN PRN
08/11/24 18:04
Admit/Transfer Patient As Directed
Co-Sign Provider:
Level of Care: Inpatient admission
Assign to:: Telemetry
Physician / Group: irena hopper
Diagnosis: Acute bronchitis concern bilat pna aspiration, Tachycardia
Reason for Telemetry: Arrhythmia
Date to Stop Telemetry: 08/14/24
Time to Stop Telemetry: 11:00
Reason for Hospitalization: Acute bronchitis concern bilat pna aspiration, Tachycardia
Expected length of stay greater than two midnights?: Yes
ELOS- Estimated Length of Stay in days: 5
I certify the patient meets the requirements for IP care: Yes
Code Status As Directed
Resuscitation Status: Do not resuscitate
Reached after discussion with pt or family/Healthcare POA: Yes
Based on pt advanced directive or healthcare POA form: Yes
Decision communicated with: Per patient
DNR Bracelet Application ONCE
08/11/24 18:08
PRN Pain Medication Management As Directed
May give lesser potent ordered pain med per pt: Yes
preference::
Protocol:: Medication orders for pain may be administered in a
manner that supports deferring to patient preference
when the pt is:
- Requesting an ordered lesser potent pain medication.
Least to most potent pain medications are defined
as: acetaminophen < NSAID < tramadol < opioids
(morphine, oxycodone, hydromorphone).
- Requesting a lesser dose of the same medication IF
ORDERED.
- Requesting a less intrusive route of administration
if both routes are prescribed by the provider (PO <
IV).
08/11/24 18:13
Dexamethasone Sod Phosphate [Decadron] 10 mg IV NOW STA
08/11/24 18:14
DIETARY CONSULT Routine
Reason for Consult: cachexia
TSH Reflex To Free T4 Routine
08/11/24 18:15
PULMONARY CONSULT Routine
Consulting Provider: Bernard Guidry
Was physician already notified: Yes
Reason for consult: viral bronchitis pna , sinus tachycardia
08/11/24 18:23
Add On- LAB Urgent
Tests Added?: tsh with free t4 reflex
08/11/24 18:24
Serum Osmolality Routine
Urine Osmolality Random [Osmolality, Random Urine] Routine
Date Specimen was Collected: 08/12/24
Time Specimen was Collected: 07:40
Urine Sodium Routine
Date Specimen was Collected: 08/12/24
Time Specimen was Collected: 07:40
08/11/24 19:36
Acetaminophen [Tylenol] 650 mg PO Q4HPRN PRN
Levalbuterol [Xopenex 1.25 mg Inhalant Solution] 1.25 mg INH R Q6HPRN PRN
Tramadol HCl [Ultram] 50 mg PO DAILYPRN PRN
08/11/24 19:36
Respiratory Culture/Gram Stain Routine
LISA Source: Sputum
Specimen Description:
Activity As Directed
Activity Level: With Assistance
Intake/ Output As Directed
Frequency: Per unit guidelines
Vital Signs As Directed
Frequency: Per unit guidelines
Weight As Directed
Frequency: Daily
Xopenex Reason for Use As Directed
Reason for ordering Xopenex instead of Albuterol: Tachycardia
O2 Therapy [RESP] Routine
Nasal Cannula Liter Flow: 2 LPM
Titrate/Wean O2 to maintain O2 sat greater than (%): 92
Pulse Ox/spot Check [RESP] Routine
Quantity: 1
Ot Eval And Treat Routine
Pt Eval And Treat Routine
Activity Level: As Tolerated
DX Deep Vein Thrombosis Video Routine
08/11/24 20:00
Budesonide/Formoterol 160/4.5 [Symbicort 160/4.5 Mcg Inhaler] 2 puff INH R BID
Calcium Carbonate/Vitamin D3 [Oscal 500 + D] 500 mg PO BID
CefTRIAXone [Rocephin] 1,000 mg IV Q24H
Cholecalciferol (Vitamin D3) [VITAMIN D3 (cholecalciferol)] 50 mcg PO BID
Cyanocobalamin [Vitamin B-12] 500 mcg PO BID
Doxycycline [Vibramycin] 100 mg PO Q12
Heparin 5,000 units SC Q12
Levalbuterol [Xopenex 1.25 mg Inhalant Solution] 1.25 mg INH R TID
Pyridoxine [Vitamin B-6] 100 mg PO BID
Vit C/Vit E/Lutein/Min/Mather-3 [Ocuvite Softgel] 1 cap PO BID
08/11/24 21:40
Procalcitonin Urgent
PCT Algorithmm Indication: Respiratory
08/11/24 22:00
Escitalopram Oxalate [Lexapro] 10 mg PO HS
Lisinopril [Zestril] 5 mg PO HS
08/12/24 05:51
Complete Blood Count/With Diff IN AM
Comprehensive Metabolic Panel IN AM
08/12/24 06:00
Dexamethasone Sod Phosphate [Decadron] 4 mg IV Q12H
08/13/24 07:53
Complete Blood Count/With Diff IN AM
Comprehensive Metabolic Panel IN AM
08/14/24 06:00
Complete Blood Count/With Diff IN AM
Comprehensive Metabolic Panel IN AM
08/14/24 11:00
DC Protocol for Telemetry ONCE
08/15/24 06:00
Complete Blood Count/With Diff IN AM
Comprehensive Metabolic Panel IN AM
Abnormal Lab Results
08/11/24
12:09
Abs Immat Gran (auto) 0.1 H 10^3/uL
(0-0.05)
Absolute Neuts (auto) 7.4 H 10^3/uL
(1.4-6.5)
Absolute Lymphs (auto) 0.5 L 10^3/uL
(1.2-3.4)
Absolute Monos (auto) 1.8 H 10^3/uL
(0.1-0.6)
Immature Gran % 0.9 H %
(0-0.5)
Lymphocytes % 5.4 L %
(20.5-51.1)
Monocytes % 18.2 H %
(1.7-9.3)
Sodium 128 L mmol/L
(135-145)
Chloride 90 L mmol/L
(98-107)
Glucose 116 H mg/dl
(70-99)
AST 54 H U/L
(14-36)
ALT 39 H U/L
(0-35)
Total Protein 6.2 L g/dl
(6.3-8.2)
08/11/24 12:09
08/11/24 12:09
Vital Signs
Initial and Last Documented VS:
Initial Vital Signs
Temp Pulse Resp BP Pulse Ox
97.6 F 120 24 193/127 89
08/11/24 11:57 08/11/24 11:57 08/11/24 11:57 08/11/24 11:57 08/11/24 11:57
Last Documented Vital Signs
Temp Pulse Resp BP Pulse Ox
98.1 F 107 18 114/68 93
08/13/24 15:16 08/13/24 15:16 08/13/24 15:16 08/13/24 15:16 08/13/24 16:42
<Santiago Minor DO, Resident - Last Filed: 08/11/24 14:59>
MDM/Problems Addressed
Differential Diagnosis Includes:
COPD exacerbation, CHF exacerbation, pneumonia, occult malignancy
MDM/Problems Addressed:
84 female past medical history of COPD, on Trelegy and albuterol rescue with no O2 at baseline, presents for increased shortness of breath 2 to 3 days in duration
Patient reports she has a productive cough, is swallowing the phlegm. Patient reports no fevers, no recent illnesses or inciting events
Patient and daughter also endorsing increased confusion, with word finding difficulties, as well as difficulty completing sentences
On physical exam lungs clear to auscultation, no wheezing, no crackles, no rales. Abdomen benign. Heart tachycardic, loud, no murmurs
Patient does appear to be in slight respiratory distress pursed lip breathing and shortness of breath with exertion when walking to the bathroom
Will initiate patient on 2 L O2, will monitor with pulse ox
Patient denies chest pain, no swelling in the legs, EKG demonstrated sinus tachycardia with nonspecific ST segment changes in anterior leads
Troponins negative, will check proBNP
Will check two-view chest x-ray
Sodium low on chemistry, 128. Per records it looks like she is chronically low however, when speaking to family this is not normal for her. When her sodium gets low they endorse she starts having difficulty concentrating and word finding
difficulties. Patient is endorsing the symptoms.
unsure etiology of hyponatremia. Patient appears dry on exam, daughter endorses she does not drink lots of fluids. Likely hypovolemic hyponatremia
Will check proBNP before initiating IV fluids
<Deric Rey DO - Last Filed: 08/13/24 18:51>
*Radiology
Radiology exam reviewed: radiology read reviewed
*Pulse Oximetry
Patient hypoxic: yes
*EKG
Interpreted by ED Provider?: Yes
Interpretation: abnormal
Comparison EKG: no comparison EKG present
Heart Rate: 120
Rate: tachycardiac
Rhythm: sinus
Ischemia: non-specific ST changes
*Wireline Supervisor Interpretation
Rate: tachycardiac
Interpretation: abnormal
Heart Rate: 120
Rhythm: sinus
*Critical Care Note
Total Time (30-74mins, 75-104mins- exclusive of procedures): 15
ED Attending Note
<Santiago Minor DO, Resident - Last Filed: 08/11/24 14:59>
-
Portions of this chart may have been created with voice recognition software.� Occasional wrong word or��sound alike� substitutions may have occurred due to the inherent limitations of voice recognition software.
<Deric Rey DO - Last Filed: 08/13/24 18:51>
ED Attending Note
Patient seen and examined by attending physician: Yes
I performed a history and physical exam of patient and discussed management with resident, I reviewed resident's note and agree with documented findings and plan of care.: Yes
ED Attending Note:
Seen with resident agree with assessment plan 84 male hypertension's been off meds after a fall, hyponatremia, COPD not on oxygen presents with fatigue shortness of breath hypoxia dyspnea on exertion volume status is not entirely clear, does have
edema but no crackles he is persistently tachycardic, chest x-ray noted, proBNP pending, will check CT to rule out PE, try Xopenex, will require admission
Discharge Plan
Departure
Patient Disposition: Admit
Date of Disposition: 08/11/24
Time of Disposition: 16:59
Admit to: Telemetry
Presentation/result/management discussed w/ accepting MD/DO: Hospitalist
Patient with high blood pressure during this ER visit?: Yes
Condition: Fair
Discharge Problem:
Centrilobular emphysema, Acute bronchitis
Interventions
Interventions:
*Risk Screen - Suicide Last Done: 08/11/24 11:57
*General Assessment Last Done: 08/11/24 14:45
*Neglect/Abuse Screening Last Done: 08/11/24 11:57
ED- Fall Risk Assessment Last Done: 08/11/24 14:45
*ED COVID-19 Vaccine History Last Done: 08/11/24 11:57
*Nursing Disposition Last Done: 08/11/24 19:29
ED- Cardiac Assessment Last Done: 08/11/24 14:45
ED- Pulmonary Assessment Last Done: 08/11/24 14:45
Discharge Date and Time
Discharge Date/Time: 08/11/24 19:30
[2024-08-11] MEDS: XOPENEX 1.25 MG INHALANT SOLUTION INH ×2 (16:14→20:43)
[2024-08-11] MEDS: XOPENEX 0.63 MG INHALANT SOLUTION INH (16:15)
--- NOTE | 2024-08-11 17:03 | HPS.HSE ---
Family Physician
-
Family Physician: Zee Garland
Chief Complaint
-
Shortness of breath x 2 days, productive cough
History of Present Illness
84-year-old female from home where she lives on a second floor above her grandson and his partner. She is complaining of shortness of breath with nonproductive cough over the last 2 to 3 days, however according to ER note she has been coughing up
phlegm and swallowing. She reports she has not used her albuterol rescue inhaler today only her Trelegy. The patient reports to ER she is having increased confusion and word finding difficulties. She states to me she has problems with her memory
and recalling things. She reports her daughter Esthela knows all of her information. She was noted to be hypertensive 193/127 tachycardic 120 and tachypneic 24 along with hypoxic 88% on room air in the ER. She had labored breathing with pursed lip
in the ER. She is currently short of breath on nasal cannula oxygen with improvement of pursed lip breathing. She denies any recent sick contacts however she has been together with her family on Dayday and her daughter and grandson on a daily
basis. She states she has been following with PT and OT from her right humerus fracture and lumbar fracture until last week when she needed to stop due to not feeling well. She denies headache, sore throat, fever, chills, chest pain, palpitations,
abdominal pain, nausea, vomiting, diarrhea, urinary symptoms, rash. She follows with Dr. Morejon for pulmonology 1-2 times a year.And Dr. Burgess from [facility] cardiology for paroxysmal SVT /aortic stenosis/orthostatic hypotension
She has a past medical history COPD, former smoker, chronic hyponatremia likely SIADH/poor oral intake, cachexia multifactorial/grief(loss of son), chronic constipation, T12 endplate compression fracture nonoperative, right proximal humerus fracture
February 2024 nonoperative, HTN, [place] with bilateral hearing aids present
Medical History
Past Medical History
Past Medical History: Reports Other
Additional Past Medical History:
Hyperlipidemia
COPD/Centrilobular emphysema
Bronchiectasis
Former smoker
Hypertension
Orthostatic hypotension
Macular degeneration right shoulder
Impingement syndrome
Cachexia
Hx grief/depression
Fall with T12 endplate compression fracture nonoperative,
right proximal humerus fracture February 2024 nonoperative
[place] with bilateral hearing aids present
Past Surgical History: Reports Other
Additional Past Surgical History:
Bilateral tubal ligation
Tonsillectomy
Social History
Tobacco: Former Smoker (68 years on and off approximately 1 pack/day quit 6 years ago)
Alcohol: None
Drug: None
Personal: Single
Living: Alone (In apartment above her grandson and his partner)
Employment: Retired
Family History
Family History: Not pertinent
Allergies / Home Medications
Allergies reflects when Allergies were last updated in [facility].
Home Medications with original date entered in [facility]
Allergy/Medication List:
Allergies
Allergy/AdvReac Type Severity Reaction Status Date / Time
Penicillins Allergy Rash Verified 02/16/24 22:20
Home Medications
calcium 600 mg (as carbonate)-vitamin D3 5 mcg (200 unit) tablet 1 tab PO BID Supplement 02/25/24
cholecalciferol (vitamin D3) 50 mcg (2,000 unit) tablet (Vitamin D3) 50 mcg PO BID Supplement 02/25/24
cyanocobalamin (vitamin B-12) 500 mcg tablet 500 mcg PO BID Supplement 02/25/24
fluticasone fur. 200 mcg-umeclid 62.5 mcg-vilant 25 mcg inhalat.powder (Trelegy Ellipta) 1 inh inhalation R DAILY Lung/Breathing Issues 02/25/24
glucosamine sulf dipotassium Cl 750 mg-chondroitin sulf 600 mg tablet (Glucosamine-Chondroitin 3X Triple Strength) 1 tab PO BID Supplement 02/25/24
pyridoxine (vitamin B6) 100 mg tablet 100 mg PO BID Supplement 02/25/24
vit C 250 mg-vit E 90 mg-zinc 40 mg-copper 1 bj-elbttj-zxaoni capsule (PreserVision AREDS-2) 1 tab PO BID Supplement 02/25/24
albuterol sulfate 90 mcg/actuation aerosol inhaler 2 puff inhalation R Q6HPRN PRN sob 08/11/24
escitalopram oxalate 10 mg tablet 10 mg PO HS 08/11/24
lisinopril 10 mg tablet 5 mg PO HS 08/11/24
tramadol 50 mg tablet 50 mg PO DAILYPRN PRN moderate pain 08/11/24
Review of Systems
-
History Source: Patient
A 12 point ROS was completed and negative except as noted: Yes
Constitutional: Reports Fatigue; Denies Fever or Chills
EENT: Denies Sore Throat or Runny Nose
Respiratory: Reports Cough (Productive but patient swallowing) and Trouble Breathing
Cardiac: Denies Chest Pain, Diaphoresis, Palpitations or Syncope
Abdomen/GI: Denies Abdominal Pain, Nausea, Vomiting, Diarrhea, Constipated or Bloody Stools
: Denies Dysuria, Frequency, Flank Pain, Incontinence or Difficulty Voiding
Musculoskeletal: Denies Joint Pain or Edema
Skin: Denies Itching or Rash
Neurological: Denies Dizzy, Headache or Weakness
Endocrine: Reports No Symptoms
Hematologic/Lymphatic: Reports No Symptoms
Psych: Reports Calm
Physical Exam
Vital Signs
Vital Signs
Temp Pulse Resp BP Pulse Ox
98.3 F 126 21 151/99 97
08/11/24 13:16 08/11/24 15:30 08/11/24 15:30 08/11/24 15:00 08/11/24 15:30
Physical Exam
General: Conversant and Other (Tachypneic, cachexia); No Pain, Fever or Chills
HEENT: NormoCephalic, Anicteric, Moist mucous membranes, Tracheostomy Collar, PERRLA, [place] Conjunctivae, No Ptosis, Hearing Impaired (Bilateral hearing aids in place) and Oxygen (2 L nasal cannula)
Respiratory: Decreased Breath Sounds (Throughout both lung herzog); No Wheezes, Rales or Rhonchi
Cardiac: S1/S2 and Tachycardia (Sinus tachycardia with PACs heart rate 140 bpm); No Murmur, Rub or Gallop
Breast: Deferred by me
GI: Soft, Non Tender, Non Distended and Normal Bowel Sounds
Rectal: Deferred by Provider
Genito-urinary: Deferred by me
Musculoskeletal: No Clubbing, No Cyanosis, Edema, Left Lower Extremity (Trace) and Edema, Right Lower Extremity (Trace); No Edema, Left Upper Extremity or Edema, Right Upper Extremity
Skin: Warm, Dry and Other (Healed right lower anterior buck abrasion with current scab has been following with outpatient wound care); No Rash
Neuro: AO x 3 (But has some mild cognitive impairment and some slight poor recall of dates and events), Nonfocal/grossly intact, Cranial Nerves Intact and Other ([place] with bilateral hearing aids); No Slurred Speech, Facial Droop, Tremors or Sedated
Psych: Calm
Laboratory Results
-
08/11/24 12:09
08/11/24 12:09
Laboratory Results
Total Bilirubin 1.0 mg/dl (0.2-1.3) 08/11/24 12:09
AST 54 U/L (14-36) H 08/11/24 12:09
ALT 39 U/L (0-35) H 08/11/24 12:09
Alkaline Phosphatase 119 U/L (38-126) 08/11/24 12:09
Troponin I < 0.012 ng/ml 08/11/24 12:09
Data Reviewed
-
Diagnostic Radiology: Report Reviewed by me
CT Scan: Report Reviewed by me
Lab Data: Labs Reviewed by me
Impression/Plan
-
Impression/plan:
Admit to telemetry
#Acute hypoxemic respiratory insufficiency secondary to Severe Acute BRONCHITIS versus PNEUMONIA
#Hx bronchiectasis
88% RA, 97% 2 L nasal cannula
-Xopenex nebs due to sinus tachycardia heart rate 140s
-Check sputum culture, influenza, COVID
-Check Pro-Mike
-Doxycycline 100 mg p.o. every 12 hours, Rocephin 1 g daily
-IV Decadron 10 mg now then 4 every 12 hours
-Consult Pulmonary
-Speech Swallow eval
-Consult PT/OT/case management
CT chest PE study
1. SEVERE ACUTE BRONCHITIS in the lower lobes with severe endobronchial disease in the basilar segments of both lower lobes. Small bilateral lower lobe subpleural
airspace consolidations. Diagnostic possibilities are (1) BILATERAL LOWER LOBE ASPIRATION PNEUMONIA or (2) peripheral endobronchial infection and mild bacterial pneumonia.
2. Moderate interstitial cardiogenic pulmonary edema.
3. Moderate bilateral upper lobe centrilobular emphysema.
4. Multiple small solid centrilobular pulmonary nodules in the lower lobes measuring less than 6 mm in size (probably secondary to endobronchial infection or aspiration).
A follow-up chest CT examination in 12 months is recommended.
5. Moderate calcific atherosclerotic plaque in the coronary arteries and thoracic aorta.
6. Small pericardial effusion.
7. 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
8. Subacute superior and inferior endplate fractures of T12 with vertebral body collapse.
#Sinus tachycardia 2/2 to current bronchitis poss pna
#Hx paroxysmal SVT
-Will monitor heart rate on telemetry
EKG: Sinus tach 125 bpm, QTc 424 MS otherwise normal
# HTN urgency
#Orthostatic Hypotension February 2024
BP 193/127 >151/99 self resolved
-As needed Hydralazine 10 mg every 6 hours SBP> 165
-February lisinopril was stopped due to hypotension, but apparently patient is on lisinopril again at 5 mg
2D echo 02/26/2024: EF 70 to 75%, hyperdynamic LVSF, mild aortic stenosis 25 mmHg, mild TR, normal PASP
# History of COPD-no acute exacerbation
#Former smoker
-Continue Trelegy Ellipta
# On CT NEW multiple small solid centrilobular pulmonary nodules in the lower lobes measuring less than 6 mm in size
(probably secondary to endobronchial infection or aspiration).
A follow-up chest CT examination in 12 months is recommended.
#Hx cognitive impairment-mild
Is oriented to person, place, name, most of history
-Has tried Aricept in the past that caused hallucinations
#Aortic Stenosis on Echocardiogram February 2024
#Acute on chronic hyponatremia likely from SIADH/poor oral intake
History of receiving Samsca in past
NA 128 baseline appears 127�130
-Check TSH with free T4 reflex, urine NA, urine Osmo, serum Osmo
-Daily PO FR 48 ounces
-Recommendations in February were to stay off her SSRI�Lexapro 10 mg at bedtime
#Transaminitis
AST 54, ALT 3939, alk phos 119 normal
- follow lft's
#Constipation Hx
Monitor for constipation
-No reported bowel regimen on OCT
# Right proximal humerus fracture from fall February 2024-nonoperative(per CT today 08/11/2024 chronic nonunited impacted fracture of the right proximal humerus)
# T12 endplate compression Fracture with vertebral collapse February 2024-nonoperative
-Was treated with sling and nonweightbearing after Ortho eval
# Grief, Depression February 2024
# Decreased Appetite, with poor PO intake
-Patient was prescribed Cymbalta recently, her son earlier this year 2023
*History of nausea with Cymbalta-was recommended Remeron or Wellbutrin by psychiatry in February 2024
-Hallucinations with Aricept
-Continue Lexapro 10 mg at bedtime
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
-Consult dietary
# DVT prophylaxis
-sq heparin
# CODE STATUS
-DNR per patient states her daughter Esthela is her emergency contact and is aware
--- NOTE | 2024-08-11 17:26 | EDRN ---
Alondra MCDONNELL in room w/ pt.
[2024-08-11 17:49] LABS: NT-proBNP 1170 pg/ml
[2024-08-11 18:08] LABS: COVID-19 Antigen Negative (Negative)
--- NOTE | 2024-08-11 18:16 | W.PN.UPDATE ---
Update Note
Progress Note Update
This is an addendum to the H&P written by Alondra Ballard on 08/11/2024. Patient seen and examined independently with BELLSTAFF.
84-year-old female past medical history of COPD, aortic stenosis, hypertension, vertebral compression fracture, chronic hyponatremia, depression, presenting with shortness of breath for 2 to 3 days with cough. Also confusion and word finding
difficulty. Initially hypertensive 190s systolic, tachypneic.
CT PE shows severe acute bronchitis in the lower lobes, severe endobronchial disease, small bilateral lower lobe subpleural airspace consolidations. There is moderate interstitial cardiogenic pulmonary edema.
Patient with sinus tachycardia up to 140s. She states that she has a history of sinus tachycardia up to 120s even when healthy and history of elevated diastolic blood pressure.
Presentation not consistent with heart failure despite CT findings or aspiration pneumonia. Likely patient has viral induced bronchitis/pneumonia. Very diminished air entry on examination without any noticeable wheezing or crackles. Will check
sputum culture, COVID and influenza. Dexamethasone 4 mg every 12, Xopenex as needed. Ceftriaxone/doxycycline. Check speech and swallow.
--- NOTE | 2024-08-11 18:30 | EDRN ---
Pt administered a boxed lunch at this time.
[2024-08-11] MEDS: DECADRON 10 MG IV (18:46)
[2024-08-11] MEDS: SYMBICORT 160/4.5 MCG INHALER 2 PUFF INH (20:42)
[2024-08-11] MEDS: VIBRAMYCIN 100 MG PO (22:52)
[2024-08-11] MEDS: OSCAL 500 + D 500 MG PO (22:52)
[2024-08-11] MEDS: STERILE WATER FOR INJECTION 10 ML IV (22:52)
[2024-08-11] MEDS: OCUVITE SOFTGEL 1 CAP PO (22:52)
[2024-08-11] MEDS: ROCEPHIN 1000 MG IV (22:52)
[2024-08-11] MEDS: VITAMIN B-12 500 MCG PO (22:52)
[2024-08-11] MEDS: LEXAPRO 10 MG PO (22:53)
[2024-08-11] MEDS: VITAMIN D3 (cholecalciferol) 50 MCG PO (22:53)
[2024-08-11] MEDS: VITAMIN B-6 100 MG PO (22:53)
[2024-08-11] MEDS: ZESTRIL 5 MG PO (22:54)
[2024-08-11] MEDS: HEPARIN 5000 UNITS SC (22:54)
[2024-08-12] VITALS (8 sets, daily range): BP systolic 112–130; BP diastolic 68–82; PULSE 71–110; O2SAT 96
--- NOTE | 2024-08-12 02:01 | PTCARENOTE ---
Pt received from ER [id number] able to make her needs known.Denies pain. Pt HR 120-135,Respiration 22-24 pt asymptomatic.CLASSIFICATION AND TREATMENT DIRECTOR training personnel supervisor made aware of it.No new orders at this time.Pt provided with all her night meds.Plan of care continued.Pt oriented to
room & call nunez in reach.
[2024-08-12] MEDS: DECADRON 4 MG IV ×2 (05:30→18:47)
[2024-08-12 06:01] LABS: % Basophils 0.6 % (0-2); % Immature Granulocytes 1.2 % (0-0.5); % Monocytes 5.1 % (1.7-9.3); % Neutrophils 87.1 % (42.2-75.2); Absolute Basophils 0.1 10^3/uL (0-0.2); Absolute Immature Granulocytes 0.1 10^3/uL (0-0.05); Absolute Lymphocytes 0.6 10^3/uL (1.2-3.4); Absolute Monocytes 0.5 10^3/uL (0.1-0.6); Absolute Neutrophils 8.2 10^3/uL (1.4-6.5); Hematocrit 37.2 % (37.0-47.0); Mean Corp Hgb Conc. 34.9 g/dL (33.0-37.0); Mean Corpuscular Hgb 28.4 pg (27.0-31.0); Mean Corpuscular Volume 81.4 fL (81.0-99.0); Mean Platelet Volume 8.7 fL (7.4-10.4); Nucleated Red Blood Cells % 0 %; Platelet Count 235 10^3/uL (130-400); Red Blood Cell Count 4.57 10^6/uL (4.20-5.40); Red Cell Dist. Width 13.6 % (11.5-14.5); White Blood Cell Count 9.4 10^3/uL (4.8-10.8)
[2024-08-12 06:18] LABS: Osmolality Serum 268 mOsm/kg (275-300)
[2024-08-12 06:37] LABS: Procalcitonin 0.09 ng/ml (0.0-0.25)
[2024-08-12 06:38] LABS: ALT (SGPT) 42 U/L (0-35); AST (SGOT) 51 U/L (14-36); Albumin 3.3 g/dl (3.5-5.0); Alkaline Phosphatase 122 U/L (38-126); Calcium 8.9 mg/dl (8.4-10.2); Carbon Dioxide 23 mmol/L (22-30); Chloride 91 mmol/L (98-107); Estimated Creatinine Clearance 53 ml/min; Glucose 139 mg/dl (70-99); Potassium 4.4 mmol/L (3.5-5.1); Sodium 126 mmol/L (135-145); Total Bilirubin 0.5 mg/dl (0.2-1.3); Total Protein 5.8 g/dl (6.3-8.2); eGFR > 60.00
[2024-08-12 06:55] LABS: TSH Reflex To Free T4 0.53 uIU/ml (0.47-4.68)
[2024-08-12] MEDS: SPIRIVA RESPIMAT 2.5 MCG 2 PUFF INH (07:32)
[2024-08-12] MEDS: XOPENEX 1.25 MG INHALANT SOLUTION INH ×3 (07:32→20:07)
[2024-08-12] MEDS: SYMBICORT 160/4.5 MCG INHALER 2 PUFF INH ×2 (07:32→20:07)
[2024-08-12 07:48] LABS: Blood Urea Nitrogen 17 mg/dl (7-17)
[2024-08-12 08:23] LABS: Osmolality Urine 577 mOsm/kg (300-900)
[2024-08-12 08:29] LABS: Urine Sodium 11 mmol/L (30-90)
--- NOTE | 2024-08-12 10:02 | W.PN.HOSP.TC ---
Today's Communication/Plan
-
Continue antibiotics
Assessment / Plan
Assessment / Plan
Physical Exam
General: Conversant and Other (Tachypneic, cachexia); No Pain, Fever or Chills
HEENT: NormoCephalic, Anicteric, Moist mucous membranes, Tracheostomy Collar, PERRLA, [place] Conjunctivae, No Ptosis, Hearing Impaired (Bilateral hearing aids in place) and Oxygen (2 L nasal cannula)
Respiratory: Decreased Breath Sounds (Throughout both lung herzog); No Wheezes, Rales or Rhonchi
Cardiac: S1/S2 and Tachycardia (Sinus tachycardia with PACs heart rate 140 bpm); No Murmur, Rub or Gallop
Breast: Deferred by me
GI: Soft, Non Tender, Non Distended and Normal Bowel Sounds
Rectal: Deferred by Provider
Genito-urinary: Deferred by me
Musculoskeletal: No Clubbing, No Cyanosis, Edema, Left Lower Extremity (Trace) and Edema, Right Lower Extremity (Trace); No Edema, Left Upper Extremity or Edema, Right Upper Extremity
Skin: Warm, Dry and Other (Healed right lower anterior buck abrasion with current scab has been following with outpatient wound care); No Rash
Neuro: AO x 3 (But has some mild cognitive impairment and some slight poor recall of dates and events), Nonfocal/grossly intact, Cranial Nerves Intact and Other ([place] with bilateral hearing aids); No Slurred Speech, Facial Droop, Tremors or Sedated
Psych: Calm
A/P:
#Acute hypoxemic respiratory insufficiency secondary to Severe Acute BRONCHITIS versus PNEUMONIA
#Hx bronchiectasis
88% RA, 97% 2 L nasal cannula
-Xopenex nebs due to sinus tachycardia heart rate 140s
-Check sputum culture, influenza, COVID
-Check Pro-Mike
-Doxycycline 100 mg p.o. every 12 hours, Rocephin 1 g daily
-IV Decadron 10 mg now then 4 every 12 hours
-Consult Pulmonary
-Speech Swallow eval
-Consult PT/OT/case management
-Discussed with daughter in person today on 08/12/2024
[address] chest PE study
1. SEVERE ACUTE BRONCHITIS in the lower lobes with severe endobronchial disease in the basilar segments of both lower lobes. Small bilateral lower lobe subpleural
airspace consolidations. Diagnostic possibilities are (1) BILATERAL LOWER LOBE ASPIRATION PNEUMONIA or (2) peripheral endobronchial infection and mild bacterial pneumonia.
2. Moderate interstitial cardiogenic pulmonary edema.
3. Moderate bilateral upper lobe centrilobular emphysema.
4. Multiple small solid centrilobular pulmonary nodules in the lower lobes measuring less than 6 mm in size (probably secondary to endobronchial infection or aspiration).
A follow-up chest CT examination in 12 months is recommended.
5. Moderate calcific atherosclerotic plaque in the coronary arteries and thoracic aorta.
6. Small pericardial effusion.
7. 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
8. Subacute superior and inferior endplate fractures of T12 with vertebral body collapse.
#Sinus tachycardia 2/2 to current bronchitis poss pna
#Hx paroxysmal SVT
-Will monitor heart rate on telemetry
EKG: Sinus tach 125 bpm, QTc 424 MS otherwise normal
# HTN urgency
#Orthostatic Hypotension February 2024
BP 193/127 >151/99 self resolved
-As needed Hydralazine 10 mg every 6 hours SBP> 165
-February lisinopril was stopped due to hypotension, but apparently patient is on lisinopril again at 5 mg
2D echo 02/26/2024: EF 70 to 75%, hyperdynamic LVSF, mild aortic stenosis 25 mmHg, mild TR, normal PASP
# History of COPD-no acute exacerbation
#Former smoker
-Continue Trelegy Ellipta
# On CT NEW multiple small solid centrilobular pulmonary nodules in the lower lobes measuring less than 6 mm in size
(probably secondary to endobronchial infection or aspiration).
A follow-up chest CT examination in 12 months is recommended.
#Hx cognitive impairment-mild
Is oriented to person, place, name, most of history
-Has tried Aricept in the past that caused hallucinations
#Aortic Stenosis on Echocardiogram February 2024
#Acute on chronic hyponatremia likely from SIADH/poor oral intake
History of receiving Samsca in past
NA 128 baseline appears 127�130
-Check TSH with free T4 reflex, urine NA, urine Osmo, serum Osmo
-Daily PO FR 48 ounces
-Recommendations in February were to stay off her SSRI�Lexapro 10 mg at bedtime
#Transaminitis
AST 54, ALT 3939, alk phos 119 normal
- follow lft's
#Constipation Hx
Monitor for constipation
-No reported bowel regimen on OCT
# Right proximal humerus fracture from fall February 2024-nonoperative(per CT today 08/11/2024 chronic nonunited impacted fracture of the right proximal humerus)
# T12 endplate compression Fracture with vertebral collapse February 2024-nonoperative
-Was treated with sling and nonweightbearing after Ortho eval
# Grief, Depression February 2024
# Decreased Appetite, with poor PO intake
-Patient was prescribed Cymbalta recently, her son earlier this 2023
*History of nausea with Cymbalta-was recommended Remeron or Wellbutrin by psychiatry in February 2024
-Hallucinations with Aricept
-Continue Lexapro 10 mg at bedtime
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
-Consult dietary
# DVT prophylaxis
-sq heparin
# CODE STATUS
-DNR
Time spent 52 minutes
Anticipated Discharge: > 48 hours
Subjective/Interval History
-
Date of Service: August 12, 2024
Patient feels short of breath. Not much of cough. No fever.
Objective Data
-
Labs:
Laboratory Results
08/12/24
05:51
WBC 9.4
Hgb 13.0
Hct 37.2
Plt Count 235
Sodium 126 L
Potassium 4.4
Chloride 91 L
Carbon Dioxide 23
BUN 17
Creatinine 0.7
Glucose 139 H
Calcium 8.9
Total Bilirubin 0.5
AST 51 H
ALT 42 H
Alkaline Phosphatase 122
Vital Signs:
Vital Signs
Temp Pulse Resp BP Pulse Ox
97.4 F 85 15 125/82 84
08/12/24 02:48 08/12/24 07:35 08/12/24 07:35 08/12/24 02:48 08/12/24 07:35
I&O
08/11/24 08/12/24 08/13/24
06:59 06:59 06:59
Intake Total 960 / 960
Balance 960 / 960
[2024-08-12] MEDS: HEPARIN 5000 UNITS SC ×2 (10:20→21:00)
[2024-08-12] MEDS: OSCAL 500 + D 500 MG PO ×2 (10:21→20:46)
[2024-08-12] MEDS: VITAMIN B-12 500 MCG PO ×2 (10:21→20:46)
[2024-08-12] MEDS: VITAMIN D3 (cholecalciferol) 50 MCG PO ×2 (10:21→20:47)
[2024-08-12] MEDS: VITAMIN B-6 100 MG PO ×2 (10:21→20:47)
[2024-08-12] MEDS: OCUVITE SOFTGEL 1 CAP PO ×2 (10:21→20:46)
[2024-08-12] MEDS: VIBRAMYCIN 100 MG PO ×2 (10:24→20:46)
[2024-08-12] MEDS: SODIUM CHLORIDE 1 GRAM PO ×2 (10:26→20:46)
[2024-08-12] MEDS: FLUSH (NSS) 1 FLUSH IV (10:27)
--- NOTE | 2024-08-12 11:41 | PTOTSP ---
Speech therapy
Presentation: Patient was oriented, alert, followed commands, and communicated well during informal conversation.
Swallowing Function: RIVET FLUNKY observed patient with several bites of cracker and sips of thin liquid in which patient appeared to tolerate as she did not exhibit any overt clinical s/sx of aspiration or difficulty with mastication/ manipulation. Patient
denied dysphagia complaints. Per RN, patient tolerated medication whole with thin liquids.
RIVET FLUNKY assisted patient with ordering her lunch tray.
Recommendations:
1) Continuation of regular consistency solids and thin liquids
2) Aspiration precautions
3) Medications whole with thin liquids
Plan: RIVET FLUNKY will continue to follow to ensure tolerance given her CXR/ Chest CT; pending hospitalization.
--- NOTE | 2024-08-12 13:13 | PTCARENOTE ---
noted patients heart rate increases when out of bed, as high as 140's,noted to be irregular at times. patient asymptomatic. Dr Ayala aware and ordered ECG . ecg completed. plan of care on gong.
--- NOTE | 2024-08-12 15:19 | CON.PUL ---
Consultation
Consultation Request
Date/Time Consultation Requested: 08/12/2024
Date/Time Consultation Performed: 08/12/2024
Requesting Provider:
Performing Provider: Dr. Bernard Christianson
Reason for Consultation: Acute hypoxemic respiratory failure-pneumonia
Medical History
-
History of Present Illness:
84-year-old woman who comes from home, has history of bronchiectasis. Came complaining of shortness of breath and productive cough for the last 2 to 3 days. Patient is maintained on Trelegy in the outpx setting. Does report that in the emergency
room was confused and having difficulty finding words.
Patient was tachycardic, hypertensive and tachypneic in the emergency room, mildly hypoxic at 88%.
Denies nausea, vomiting, diarrhea or swallowing dysfunction.
Patient follows up with Dr. Smart from the pulmoanary perspective.
CT chest was performed and demonstrated severe acute bronchitis of the lower lobes, mucous plugging. Bibasilar airspace disease.
Past Medical History
Past Medical History: Other (See assessment and plan)
Social History
Tobacco: Former Smoker (1-pack-year history quit about 6 years ago)
Alcohol: None
Drug: None
Personal: Single
Living: Alone
Employment: Retired
Family History
Family History: Reviewed & Not Pertinent
Allergies / Home Medications
Allergies
Allergy/AdvReac Type Severity Reaction Status Date / Time
Penicillins Allergy Rash Verified 02/16/24 22:20
Home Medications
�Medication �Instructions �Recorded �Confirmed �Last Taken �Type
calcium 600 mg (as 1 tab PO BID Supplement 02/25/24 08/11/24 08/11/24 History
carbonate)-vitamin D3 5 mcg (200
unit) tablet
cholecalciferol (vitamin D3) 50 50 mcg PO BID Supplement 02/25/24 08/11/24 08/11/24 History
mcg (2,000 unit) tablet (Vitamin
D3)
cyanocobalamin (vitamin B-12) 500 500 mcg PO BID Supplement 02/25/24 08/11/24 08/11/24 History
mcg tablet
fluticasone fur. 200 mcg-umeclid 1 inh inhalation R DAILY 02/25/24 08/11/24 08/11/24 History
62.5 mcg-vilant 25 mcg Lung/Breathing Issues
inhalat.powder (Trelegy Ellipta)
glucosamine sulf dipotassium Cl 1 tab PO BID Supplement 02/25/24 08/11/24 08/11/24 History
750 mg-chondroitin sulf 600 mg
tablet (Glucosamine-Chondroitin 3X
Triple Strength)
pyridoxine (vitamin B6) 100 mg 100 mg PO BID Supplement 02/25/24 08/11/24 08/11/24 History
tablet
vit C 250 mg-vit E 90 mg-zinc 40 1 tab PO BID Supplement 02/25/24 08/11/24 08/11/24 History
mg-copper 1 [id number]
capsule (PreserVision AREDS-2)
albuterol sulfate 90 mcg/actuation 2 puff inhalation R Q6HPRN PRN sob 08/11/24 08/11/24 Unknown History
aerosol inhaler
escitalopram oxalate 10 mg tablet 10 mg PO HS High Cholesterol 08/11/24 08/11/24 08/10/24 History
lisinopril 10 mg tablet 5 mg PO HS Blood Pressure 08/11/24 08/11/24 08/10/24 History
tramadol 50 mg tablet 50 mg PO DAILYPRN PRN moderate pain 08/11/24 08/11/24 Unknown History
Review of Systems
-
History Source: Patient
All other systems: Negative unless noted
Vitals / Labs / Diagnostic Testing
Vital Signs
Temp Pulse Resp BP Pulse Ox
97.3 F 88 16 112/68 96
08/12/24 11:50 08/12/24 11:50 08/12/24 11:50 08/12/24 11:50 08/12/24 11:50
Lab Data
08/12/24 05:51
08/12/24 05:51
Microbiology
08/11/24 17:23 Nasal Swab Influenza Types A & B (MATA) - Final
Negative for Influenza A & B, NAAT
Negative results must be combined with clinical observations
and patient history.
Nucleic Acid Amplification test (NAAT)performed on the
[employer] platform.
Diagnostic Testing:
Physical Exam
-
HEENT: Normocephalic
Cardiovascular: S1/S2
Respiratory: Wheeze, Rales and Non-Labored Respirations
GI: Non Distended
Neurology: Awake
Skin: Warm
General: Comfortable
Assessment
-
84-year-old woman with history of COPD/bronchiectasis came to the hospital complaining of cough/shortness of breath some confusion, shortness of breath found to have abnormal CT chest with bibasilar mucous plugging, pneumonia severe bronchial
thickening.
Possible bronchiectasis/COPD exacerbation-acute bronchitis/pneumonia
Abnormal CT chest: Possible pneumonia of the lower lobes.
Hyponatremia
Cannot rule out interstitial pulmonary edema: proBNP 1170
Echocardiogram 02/26/2024: Normal LVEF. No significant valvular abnormalities.
Hypertensive urgency
Sinus tachycardia
History of paroxysmal SVT
Conditions present prior admission:
COPD/emphysema
Bronchiectasis
Follows with Dr. Smart-last visit 05/21/2024
On Trelegy
No oxygen requirements at that time-her DLCO was 36%.
History of lung nodules followed in the outpatient setting he was recommended not to continue to follow-up at that time.
Hypertension
History of orthostatic hypotension
Macular degeneration
Cachexia
History of depression
History of T12 and plate compression fracture status post fall
Right proximal humerus fracture February 2024
Hard of hearing
Mild cognitive impairment
Former smoker 68 years on and off approximately 1 pack/day-quit 6 years
Assessment and plan:
Clinical picture suggest exacerbation of bronchiectasis: Bibasilar infiltrates may be pneumonia versus mucous plugging from bronchitis
Agree with antibiotics to cover for community-acquired infection ceftriaxone/doxycycline
Influenza negative
COVID-negative
Sputum culture if able
Blood cultures
Currently without leukocytosis and afebrile
-
Not bronchospastic on exam
On 2 L supplemental oxygen, wean off as able.
Patient has difficulty expectorating and complains of exertional shortness of breath which is new compared to prior.
Secretion clearance interventions
Acapella device
Agree with IV dexamethasone for now currently 4 mg IV every 12 hours
Levalbuterol 3 times daily (avoid beta agonist due to tachycardia and history of SVT.
For now continue tiotropium/Symbicort: If unable to produce phlegm will need to ramp up nebulizer therapy including 3% saline etc.
May benefit from vest therapy if there is no improvement.
-
Given bibasilar abnormalities: Rule out aspiration. Speech evaluation has been ordered
Patient denies any swallowing phone.
-
Will need radiographic follow-up in the outpatient setting
[facility] records reviewed patient has known tiny lung nodules that no further imaging was recommended in 2019.
-
Hyponatremia management per primary team.
-
Maintain blood sugar levels-Target 140/180-insulin sliding scale.
-
DVT prophylaxis-heparin subcu.
-
Outpatient follow-up with Dr. Smart after DC.

Data reviewed:
CT chest: 08/11/2024
1. SEVERE ACUTE BRONCHITIS in the lower lobes with severe endobronchial disease in the basilar segments of both lower lobes. Small bilateral lower lobe subpleural airspace consolidations. Diagnostic possibilities are (1) BILATERAL LOWER LOBE
ASPIRATION PNEUMONIA or (2) peripheral endobronchial infection and mild bacterial pneumonia.
2. Moderate interstitial cardiogenic pulmonary edema.
3. Moderate bilateral upper lobe centrilobular emphysema.
4. Multiple small solid centrilobular pulmonary nodules in the lower lobes measuring less than 6 mm in size (probably secondary to endobronchial infection or aspiration). A follow-up chest CT examination in 12 months is recommended.
5. Moderate calcific atherosclerotic plaque in the coronary arteries and thoracic aorta.
6. Small pericardial effusion.
7. 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
8. Subacute superior and inferior endplate fractures of T12 with vertebral body collapse.
[2024-08-12] MEDS: MUCINEX 1200 MG PO ×2 (16:20→20:45)
[2024-08-12] MEDS: FLUSH (NSS) 2 FLUSH IV (18:48)
[2024-08-12] MEDS: ROCEPHIN 1000 MG IV (20:46)
[2024-08-12] MEDS: STERILE WATER FOR INJECTION 10 ML IV (20:46)
[2024-08-12] MEDS: ZESTRIL 5 MG PO (21:01)
[2024-08-13] VITALS (7 sets, daily range): BP systolic 101–128; BP diastolic 67–94; BMI 19.9
[2024-08-13] MEDS: DECADRON 4 MG IV ×2 (05:21→17:01)
[2024-08-13] MEDS: XOPENEX 1.25 MG INHALANT SOLUTION INH ×3 (07:24→19:53)
[2024-08-13] MEDS: SPIRIVA RESPIMAT 2.5 MCG 2 PUFF INH (07:25)
[2024-08-13] MEDS: SYMBICORT 160/4.5 MCG INHALER 2 PUFF INH ×2 (07:25→19:53)
--- NOTE | 2024-08-13 07:50 | W.PN.HOSP.TC ---
Today's Communication/Plan
-
Continue antibiotics, steroids, bronchodilators.
Assessment / Plan
Assessment / Plan
Physical exam:
General: Acutely ill
HEENT: Normocephalic, Atraumatic and Moist Mucous Membranes
Respiratory: Bilateral rhonchi; some wheezes; Negative Rales
Cardiac: Regular Rhythm and S1/S2
GI: Soft, Nontender and Nondistended
Musculoskeletal: No Clubbing, No Cyanosis and No Edema
Neuro: Awake, Alert and Oriented, no gross neurological deficit
Psych: Calm
A/P:
Acute hypoxic respiratory insufficiency:
CTA negative for PE
Supplemental oxygen
Broad-spectrum antibiotic
Systemic steroids
Continue Mucinex
Started Acapella
Pulmonary consult appreciated
Influenza/COVID-19 negative
Discussed with daughter at bedside yesterday
Pneumonia/Bronchitis/COPD exacerbation/and Bronchiectasis flare:
Continue IV ceftriaxone and doxycycline
Continue IV dexamethasone 4 mg every 12 hours
Continue Symbicort
Continue Spiriva
Continue bronchodilator
procal 0.09
Speech therapy for swallow eval
Cannot rule out interstitial edema though last echo normal EF and mild
Hyponatremia:
Sodium remains low
Give Lasix 20 mg IV x 1 today
Recheck renal function in a.m.
Check urine sodium and urine osmolarity and serum osmolarity
Started fluid restriction yesterday
Started also on salt tablet yesterday
TSH 0.53
Holding SSRI
Monitor sodium closely
Leukocytosis:
Likely reactive due to steroid
Hypertensive urgency:
Continue lisinopril
Continue IV hydralazine as needed
Sinus tachycardia/history of SVT in the past:
Monitor rate and rhythm
Elevated LFTs:
Monitor trend
History of orthostatic hypotension:
Monitor blood pressure
Cachexia/moderate protein calorie malnutrition:
Nutrition eval
Mild cognitive impairment:
Monitor mental status and behavior
Depression:
Holding escitalopram
History of compression fractures in the past T12 chronic proximal humeral fracture:
Pain control with tramadol as needed
DVT prophylaxis:
Heparin SQ--> switch to Lovenox SQ
CODE STATUS:
DNR
Time spent 52 minutes
Anticipated Discharge: > 48 hours
Subjective/Interval History
-
Date of Service: August 13, 2024
Patient feels better overall today although she is still short of breath on exertion as per patient report.
Objective Data
-
Labs:
Laboratory Results
08/13/24
06:00
WBC Pending
Hgb Pending
Hct Pending
Plt Count Pending
Sodium Pending
Potassium Pending
Chloride Pending
Carbon Dioxide Pending
BUN Pending
Creatinine Pending
Glucose Pending
Calcium Pending
Total Bilirubin Pending
AST Pending
ALT Pending
Alkaline Phosphatase Pending
Vital Signs:
Vital Signs
Temp Pulse Resp BP Pulse Ox
97.6 F 88 16 124/94 97
08/13/24 03:00 08/13/24 07:29 08/13/24 07:29 08/13/24 03:00 08/13/24 07:29
I&O
08/12/24 08/13/24 08/14/24
06:59 06:59 06:59
Intake Total 960 / 960 600 / 600
Output Total 300 / 300
Balance 960 / 960 300 / 300
--- NOTE | 2024-08-13 08:49 | W.PN.PUL3 ---
Today's Communication / Plan
-
Antibiotics
Systemic steroids
Maintain euglycemia with goal BG >1 100+ <180
On Trelegy at home, continue Symbicort + Spiriva while hospitalized
Xopenex TID
Aspiration precautions
Repeat imaging as an outpatient to assure pneumonia resolves and bronchiolitis improves
Pulmonary service will continue to follow along while she remains hospitalized and we will ensure patient has outpatient follow-up
Assessment
-
84-year-old woman with history of COPD/bronchiectasis came to the hospital complaining of cough/shortness of breath some confusion, shortness of breath found to have abnormal CT chest with bibasilar mucous plugging, pneumonia severe bronchial
thickening.
Impression:
Possible bronchiectasis/COPD exacerbation-acute bronchitis/pneumonia
Abnormal CT chest: Possible pneumonia of the lower lobes/bronchiolitis
Hyponatremia
Cannot rule out interstitial pulmonary edema: proBNP 1170
Echocardiogram 02/26/2024: Normal LVEF. No significant valvular abnormalities.
Hypertensive urgency - resolved
Sinus tachycardia - resolved
History of paroxysmal SVT
Conditions present prior admission:
COPD/emphysema
Bronchiectasis
Follows with Dr. Smart-last visit 05/21/2024
On Trelegy
No oxygen requirements at that time-her DLCO was 36%.
History of lung nodules followed in the outpatient setting he was recommended not to continue to follow-up at that time.
Hypertension
History of orthostatic hypotension
Macular degeneration
Cachexia
History of depression
History of T12 and plate compression fracture status post fall
Right proximal humerus fracture February 2024
Hard of hearing
Mild cognitive impairment
Former smoker 68 years on and off approximately 1 pack/day-quit 6 years
Assessment and plan:
Clinical picture suggest exacerbation of bronchiectasis with bronchiolitis: Bibasilar infiltrates may be pneumonia versus mucous plugging from bronchitis; she has significant bronchial wall thickening seen predominantly in the lower lobes
Agree with antibiotics to cover for community-acquired infection ceftriaxone/doxycycline
Influenza negative
COVID-negative
Sputum culture if able
Currently afebrile; WBC rising (likely steroid induced)
-
Not bronchospastic on exam
On 2 L supplemental oxygen, wean off as able while keeping SpO2 88-95%
Patient had difficulty expectorating and complains of exertional shortness of breath which is new compared to prior --> as of 08/13/2023 she denies cough or chest congestion
Secretion clearance interventions prn
Acapella device
Agree with IV dexamethasone for now currently 4 mg IV every 12 hours --> wean as she clinically improves; would leave at this dose for now
Levalbuterol 3 times daily (avoid beta agonist due to tachycardia and history of SVT)
For now continue tiotropium/Symbicort
-
Given bibasilar abnormalities: Rule out aspiration. Speech evaluation performed on 08/12/2024 with no overt signs/symptoms of aspiration --> continue to monitor
Patient denies any swallowing problems
-
Will need radiographic follow-up in the outpatient setting
[facility] records reviewed - patient has known tiny lung nodules and no further imaging was recommended in 2019.
-
Hyponatremia management per primary team.
-
Maintain blood sugar levels-Target >100 and <180; can use ISS SQ if needed
-
DVT prophylaxis- LMWH
-
Outpatient follow-up with Dr. Smart after DC.
Pulmonary service will continue to follow along while she remains hospitalized.

Data reviewed:
CT chest: 08/11/2024
1. SEVERE ACUTE BRONCHITIS in the lower lobes with severe endobronchial disease in the basilar segments of both lower lobes. Small bilateral lower lobe subpleural airspace consolidations. Diagnostic possibilities are (1) BILATERAL LOWER LOBE
ASPIRATION PNEUMONIA or (2) peripheral endobronchial infection and mild bacterial pneumonia.
2. Moderate interstitial cardiogenic pulmonary edema.
3. Moderate bilateral upper lobe centrilobular emphysema.
4. Multiple small solid centrilobular pulmonary nodules in the lower lobes measuring less than 6 mm in size (probably secondary to endobronchial infection or aspiration). A follow-up chest CT examination in 12 months is recommended.
5. Moderate calcific atherosclerotic plaque in the coronary arteries and thoracic aorta.
6. Small pericardial effusion.
7. 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
8. Subacute superior and inferior endplate fractures of T12 with vertebral body collapse.
Total time spent today was 36 minutes for this encounter. Time includes reviewing laboratory test/imaging results, reviewing pertinent medical records, obtaining and reviewing medical history, performing an appropriate exam, ordering medications,
tests and procedures. Time also includes documentation of this encounter, coordinating patient care and communicating with other healthcare professionals. Total time does not include separately billed tests performed on this date of service.
Subjective Data
-
Date of Service:
Date of Service: August 13, 2024
Chief Complaint: Pulmonary Follow Up
Subjective:
Patient was seen and evaluated today at bedside. She is resting in bed in no acute distress, breathing comfortably on 2 L/min via nasal cannula. She denies shortness of breath at rest but when she walks around she does still feel winded. She
denies cough or chest congestion. Denies chest pain, PEDRO, abdominal pain, nausea, fevers or chills.
Review of Systems
General: Other (Negative unless mentioned above)
Objective Data
Data Reviewed
Vital Signs / I&O / Oxygen:
Vital Signs
Temp Pulse Resp BP Pulse Ox
97.6 F 88 16 124/94 97
08/13/24 03:00 08/13/24 07:29 08/13/24 07:29 08/13/24 03:00 08/13/24 07:29
Intake and Output
08/12/24 08/13/24 08/14/24
06:59 06:59 06:59
Intake Total 960 / 960 600 / 600
Output Total 300 / 300
Balance 960 / 960 300 / 300
SaO2 97
Nasal Cannula flow liters per 1
minute
Physical Exam
General: Respiratory Distress (negative) and Comfortable
HEENT: Normocephalic and Anicteric
Cardiovascular: Rub (negative), Peripheral Edema (negative) and Other (Distant heart sounds; normal rate)
Respiratory: Wheeze (negative), Crackles (Bibasilar), Rhonchi (Bibasilar) and Non-Labored Respirations
GI: Soft, Non Distended, Non Tender and Normal Bowel Sounds
Neurology: AO x 3 and Tremors (negative)
Skin: Warm, Dry, Cyanosis (negative) and Jaundice (negative)
Labs/Micro/Reports
Microbiology
08/11/24 17:23 Nasal Swab Influenza Types A & B (MATA) - Final
Negative for Influenza A & B, NAAT
Negative results must be combined with clinical observations
and patient history.
Nucleic Acid Amplification test (NAAT)performed on the
[email or web address] platform.
[2024-08-13] MEDS: SODIUM CHLORIDE 1 GRAM PO ×2 (09:31→20:32)
[2024-08-13] MEDS: OCUVITE SOFTGEL 1 CAP PO ×2 (09:31→20:33)
[2024-08-13] MEDS: VIBRAMYCIN 100 MG PO ×2 (09:31→20:32)
[2024-08-13] MEDS: VITAMIN B-6 100 MG PO ×2 (09:32→20:32)
[2024-08-13] MEDS: VITAMIN D3 (cholecalciferol) 50 MCG PO ×2 (09:32→20:33)
[2024-08-13] MEDS: MUCINEX 1200 MG PO ×2 (09:32→20:33)
[2024-08-13] MEDS: VITAMIN B-12 500 MCG PO ×2 (09:32→20:32)
[2024-08-13] MEDS: HEPARIN SC (09:33)
[2024-08-13] MEDS: OSCAL 500 + D 500 MG PO ×2 (09:33→20:33)
[2024-08-13 09:54] LABS: ALT (SGPT) 92 U/L (0-35); AST (SGOT) 116 U/L (14-36); Albumin 3.3 g/dl (3.5-5.0); Alkaline Phosphatase 141 U/L (38-126); Blood Urea Nitrogen 22 mg/dl (7-17); Carbon Dioxide 28 mmol/L (22-30); Chloride 91 mmol/L (98-107); Estimated Creatinine Clearance 53 ml/min; Glucose 100 mg/dl (70-99); Potassium 4.6 mmol/L (3.5-5.1); Sodium 126 mmol/L (135-145); Total Bilirubin 0.3 mg/dl (0.2-1.3); Total Protein 5.7 g/dl (6.3-8.2); eGFR > 60.00
[2024-08-13 10:01] LABS: % Basophils 0.4 % (0-2); % Immature Granulocytes 2.6 % (0-0.5); % Lymphocytes 4.9 % (20.5-51.1); % Monocytes 4.2 % (1.7-9.3); % Neutrophils 87.9 % (42.2-75.2); Absolute Basophils 0.1 10^3/uL (0-0.2); Absolute Immature Granulocytes 0.5 10^3/uL (0-0.05); Absolute Lymphocytes 0.9 10^3/uL (1.2-3.4); Absolute Monocytes 0.8 10^3/uL (0.1-0.6); Absolute Neutrophils 15.8 10^3/uL (1.4-6.5); Hematocrit 36.8 % (37.0-47.0); Hemoglobin 12.7 g/dL (12.0-16.0); Mean Corp Hgb Conc. 34.5 g/dL (33.0-37.0); Mean Corpuscular Hgb 28.3 pg (27.0-31.0); Mean Platelet Volume 9.5 fL (7.4-10.4); Nucleated Red Blood Cells % 0 %; Platelet Count 308 10^3/uL (130-400); Red Blood Cell Count 4.49 10^6/uL (4.20-5.40); Red Cell Dist. Width 13.9 % (11.5-14.5); White Blood Cell Count 17.9 10^3/uL (4.8-10.8)
--- NOTE | 2024-08-13 12:21 | CM ---
Pt seen bedside. Initial assessment completed. Pt admitted for shortness of breath and productive cough
Pt reports that she prev lived alone, however, her grandson and his partner recently moved in (basement level).
Pt states she is independent w/ ambulating, denies any DME for daily functioning.
Pt is currently on 2L O2, pt does not use home O2
Pt denies SNF/VN/PT hx. Pt states she did engage in OP therapy and home PT for her shoulder. Pt stated she had a fall while working out and broke her shoulder. Pt states she recently ended her home PT as she used all of her insurance approved time.
Pt does not remember HH provider.
Pt stated she always had breathing problems as she is prev smoker. Pt stated she had moments where she would walk up the stairs and will need to sit down to catch her breath. Pt stated she prev was able to drive herself to the grocery store, work
out, engage in garden work but is now having issues doing these activities due to her challenges w/ breathing.
Address, point of contact and insurance verified
PCP: Dr. Garland- Pt stated she changed from this physician but does not remember the name of her new one. Pt confirmed PCP is from the same office.
Pharmacy: [facility]
Currently on IV abx
CM discussed PT/OT rec of home PT at d/c. Pt stated she is unsure of this at this time because of her issues she is having w/ her breathing. Pt agreed to decide on this closer to d/c
Plan: Home; poss HH if pt agrees
[2024-08-13 14:20] LABS: Glycohemoglobin (HgbA1c) 4.9 % (4.0-5.6)
[2024-08-13] MEDS: LASIX 20 MG IV (14:52)
[2024-08-13] MEDS: LOVENOX 40 MG SC (17:01)
[2024-08-13] MEDS: STERILE WATER FOR INJECTION 10 ML IV (20:33)
[2024-08-13] MEDS: ROCEPHIN 1000 MG IV (20:33)
[2024-08-13] MEDS: ZESTRIL PO (20:35)
[2024-08-14] VITALS (7 sets, daily range): BP systolic 108–138; BP diastolic 73–85; PULSE 101; O2SAT 98; BMI 20.3
[2024-08-14] MEDS: DECADRON 4 MG IV ×2 (05:52→18:02)
[2024-08-14] MEDS: XOPENEX 1.25 MG INHALANT SOLUTION INH ×3 (07:11→19:41)
[2024-08-14] MEDS: SYMBICORT 160/4.5 MCG INHALER 2 PUFF INH ×2 (07:12→19:41)
[2024-08-14] MEDS: SPIRIVA RESPIMAT 2.5 MCG 2 PUFF INH (07:12)
[2024-08-14] MEDS: MUCINEX 1200 MG PO ×2 (08:06→20:39)
[2024-08-14] MEDS: OCUVITE SOFTGEL 1 CAP PO ×2 (08:07→20:40)
[2024-08-14] MEDS: VITAMIN D3 (cholecalciferol) 50 MCG PO ×2 (08:07→20:41)
[2024-08-14] MEDS: VIBRAMYCIN 100 MG PO ×2 (08:07→20:40)
[2024-08-14] MEDS: OSCAL 500 + D 500 MG PO ×2 (08:07→20:40)
[2024-08-14] MEDS: SODIUM CHLORIDE 1 GRAM PO ×2 (08:08→20:40)
[2024-08-14] MEDS: VITAMIN B-6 100 MG PO ×2 (08:08→20:41)
[2024-08-14] MEDS: VITAMIN B-12 500 MCG PO ×2 (08:10→20:41)
--- NOTE | 2024-08-14 08:58 | W.PN.PUL3 ---
Today's Communication / Plan
-
Antibiotics
Systemic steroids -tomorrow would start prednisone taper starting at 50 mg and reduce by 10 mg every fourth day until off
Maintain euglycemia with goal BG >1 100+ <180
On Trelegy at home, continue Symbicort + Spiriva while hospitalized
Xopenex TID
Follow-up SCx
Aspiration precautions
Repeat imaging as an outpatient to assure pneumonia resolves and bronchiolitis improves
Pulmonary service will continue to follow along while she remains hospitalized and we will ensure patient has outpatient follow-up
Assessment
-
84-year-old woman with history of COPD/bronchiectasis came to the hospital complaining of cough/shortness of breath some confusion, shortness of breath found to have abnormal CT chest with bibasilar mucous plugging, pneumonia severe bronchial
thickening.
Impression:
Possible bronchiectasis/COPD exacerbation-acute bronchitis/pneumonia
Abnormal CT chest: Possible pneumonia of the lower lobes/bronchiolitis
Hyponatremia
Cannot rule out interstitial pulmonary edema: proBNP 1170
Echocardiogram 02/26/2024: Normal LVEF. No significant valvular abnormalities.
Hypertensive urgency - resolved
Sinus tachycardia - resolved
History of paroxysmal SVT
Conditions present prior admission:
COPD/emphysema
Bronchiectasis
Follows with Dr. Smart-last visit 05/21/2024
On Trelegy
No oxygen requirements at that time-her DLCO was 36%.
History of lung nodules followed in the outpatient setting he was recommended not to continue to follow-up at that time.
Hypertension
History of orthostatic hypotension
Macular degeneration
Cachexia
History of depression
History of T12 and plate compression fracture status post fall
Right proximal humerus fracture February 2024
Hard of hearing
Mild cognitive impairment
Former smoker 68 years on and off approximately 1 pack/day-quit 6 years
Assessment and plan:
Clinical picture suggest exacerbation of bronchiectasis with bronchiolitis: Bibasilar infiltrates may be pneumonia versus mucous plugging from bronchitis; she has significant bronchial wall thickening seen predominantly in the lower lobes
Agree with antibiotics to cover for community-acquired infection ceftriaxone/doxycycline
Influenza negative
COVID-negative
Sputum culture collected today shows NGTD
Currently afebrile; WBC elevated (likely steroid induced)
-
Not bronchospastic on exam
On 2 L supplemental oxygen, wean off as able while keeping SpO2 88-95%
Check ambulatory pulse oximetry prior to discharge
Patient had difficulty expectorating and complains of exertional shortness of breath which is new compared to prior --> as of 08/13/2023 she denies cough or chest congestion
Secretion clearance interventions prn
Acapella device
Agree with IV dexamethasone for now currently 4 mg IV every 12 hours --> wean as she clinically improves; would start to wean down to prednisone taper tomorrow, starting at 50 mg and reduce by 10 mg every fourth day until off
Levalbuterol 3 times daily (avoid beta agonist due to tachycardia and history of SVT)
For now continue tiotropium/Symbicort
-
Given bibasilar abnormalities: Rule out aspiration. Speech evaluation performed on 08/12/2024 with no overt signs/symptoms of aspiration --> continue to monitor
Patient denies any swallowing problems
-
Will need radiographic follow-up in the outpatient setting
[facility] records reviewed - patient has known tiny lung nodules and no further imaging was recommended in 2019.
-
Hyponatremia management per primary team.
-
Maintain blood sugar levels-Target >100 and <180; can use ISS SQ if needed
-
DVT prophylaxis- LMWH
-
Outpatient follow-up with Dr. Smart after DC.
Disposition planning. Believe that she will be ready for discharge over the next 24-48 hours
Pulmonary service will continue to follow along while she remains hospitalized.

Data reviewed:
CT chest: 08/11/2024
1. SEVERE ACUTE BRONCHITIS in the lower lobes with severe endobronchial disease in the basilar segments of both lower lobes. Small bilateral lower lobe subpleural airspace consolidations. Diagnostic possibilities are (1) BILATERAL LOWER LOBE
ASPIRATION PNEUMONIA or (2) peripheral endobronchial infection and mild bacterial pneumonia.
2. Moderate interstitial cardiogenic pulmonary edema.
3. Moderate bilateral upper lobe centrilobular emphysema.
4. Multiple small solid centrilobular pulmonary nodules in the lower lobes measuring less than 6 mm in size (probably secondary to endobronchial infection or aspiration). A follow-up chest CT examination in 12 months is recommended.
5. Moderate calcific atherosclerotic plaque in the coronary arteries and thoracic aorta.
6. Small pericardial effusion.
7. 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
8. Subacute superior and inferior endplate fractures of T12 with vertebral body collapse.
Total time spent today was 38 minutes for this encounter. Time includes reviewing laboratory test/imaging results, reviewing pertinent medical records, obtaining and reviewing medical history, performing an appropriate exam, ordering medications,
tests and procedures. Time also includes documentation of this encounter, coordinating patient care and communicating with other healthcare professionals. Total time does not include separately billed tests performed on this date of service.
Subjective Data
-
Date of Service:
Date of Service: August 14, 2024
Chief Complaint: Pulmonary Follow Up
Subjective:
Patient seen and evaluated today at bedside. Currently on 2 L/min nasal cannula saturating 95%. She feels very good today, breathing better, denying cough. Able to walk around the unit without significant difficulty breathing. Currently denies
PEDRO, abdominal pain, nausea, vomiting, fevers or chills.
Review of Systems
General: Other (Negative unless mentioned above)
Objective Data
Data Reviewed
Vital Signs / I&O / Oxygen:
Vital Signs
Temp Pulse Resp BP Pulse Ox
97.9 F 78 18 120/77 99
08/14/24 07:45 08/14/24 07:45 08/14/24 07:45 08/14/24 07:45 08/14/24 07:45
Intake and Output
08/13/24 08/14/24 08/15/24
06:59 06:59 06:59
Intake Total 600 / 600 1080 / 1080 300 / 300
Output Total 300 / 300 1575 / 1575
Balance 300 / 300 -495 / -495 300 / 300
SaO2 99
Nasal Cannula flow liters per 2
minute
Physical Exam
General: Respiratory Distress (negative) and Comfortable
HEENT: Normocephalic and Anicteric
Cardiovascular: Rub (negative), Peripheral Edema (negative) and Other (Distant heart sounds; normal rate)
Respiratory: Wheeze (negative), Crackles (Bibasilar), Rhonchi (Bibasilar), Non-Labored Respirations and Other (Diminished breath sounds bilaterally)
GI: Soft, Non Distended, Non Tender and Normal Bowel Sounds
Neurology: AO x 3 and Tremors (negative)
Skin: Warm, Dry, Cyanosis (negative) and Jaundice (negative)
Labs/Micro/Reports
Lab Data
08/14/24 08:48
Microbiology
08/14/24 02:51 Sputum Gram Stain - Preliminary
08/11/24 17:23 Nasal Swab Influenza Types A & B (MATA) - Final
Negative for Influenza A & B, NAAT
Negative results must be combined with clinical observations
and patient history.
Nucleic Acid Amplification test (NAAT)performed on the
[employer] platform.
[2024-08-14 09:20] LABS: Hematocrit 36.8 % (37.0-47.0); Hemoglobin 12.6 g/dL (12.0-16.0); Mean Corp Hgb Conc. 34.2 g/dL (33.0-37.0); Mean Corpuscular Hgb 28.4 pg (27.0-31.0); Mean Corpuscular Volume 82.9 fL (81.0-99.0); Mean Platelet Volume 8.8 fL (7.4-10.4); Platelet Count 315 10^3/uL (130-400); Red Blood Cell Count 4.44 10^6/uL (4.20-5.40); Red Cell Dist. Width 14.2 % (11.5-14.5); White Blood Cell Count 16.4 10^3/uL (4.8-10.8)
--- NOTE | 2024-08-14 10:10 | PN.CDI ---
CDI
- -
CDI:
Physician Documentation Request
Admit Date: 08/11/24 18:27
Dear Doctor Jamie,
Please review the following and provide your response in the progress notes.
Clinical Indicators:
- 1/2 PN 'moderate protein calorie malnutrition' without specificity
- 1/2 Senior Asp Net Developer note indicates stable weight within normal range, no assessment indicated
- /3: 5'6, 125lbs, BMI 20.3
Based on the above information and your assessment, which of the following most accurately represents the patient's nutritional status?
Moderate protein calorie malnutrition based on
Cachexia without malnutrition
Other (please specify)
Miracle Criteria ([facility] Hospital[facility] 2017)
2 or more criteria must be present for either
non severe or severe malnutrition
Note that the criteria differs related to the
presence of an acute or chronic illness
Acute Illness Chronic Illness
Energy Intake Non Severe: <75% for >7 days Non Severe: <75% for >1 month
Severe: <50% for >5 days Severe: <75% for >1 month
Weight Loss Non Severe: 1-2% over 1 week Non Severe: 5% over 1 month
5% over 1 month 7.5% over 3 months
7.5% over 3 months 10% over 6 months
1 year N/A 20% over 1 year
Severe: >2% over 1 week Severe: >5% over 1 month
>5% over 1 month >7.5% over 3 months
>7.5% over 3 months >10% over 6 months
1 year N/A >20% over 1 year
Body Fat Non Severe: Mild Decrease Non Severe: Mild Loss
Severe: Moderate Decrease Severe: Severe Loss
Muscle Mass Non Severe: Mild Decrease Non Severe: Mild Loss
Severe: Moderate Decrease Severe: Severe Loss
Fluid Accumulation Non Severe: Mild Accumulation Non Severe: Mild Accumulation
Severe: Moderate to severe Severe: Moderate to severe
accumulation accumulation
Reduced 2 Year Olds Preschool Teacher Strength Non Severe: N/A Non Severe: N/A
Severe: Measurably reduced Severe: Measurably reduced
Additional criteria that can be used to Determine if Mild or Moderate Malnutrition ([employer] Manual 2018)
Mild Moderate Severe
Albumin gm/dl <3.0 gm/dl <2.5 gm/dl <2.0 gm/dl
Pre Albumin mg/dl <15 gm/dl <10 mg/dl <5.0 mg/dl
BMI <18.5 <17 <16
Use of terms such as suspected, likely, concern for, or probable (associated with a specific diagnosis that is being evaluated, monitored, or treated as if it exists) are acceptable and can be coded in the inpatient setting, when documented at the
time of discharge.
Thank you,
Harriet Maldonado RN
CDI Specialist
Please use your independent medical judgment in providing your response.
--- NOTE | 2024-08-14 10:19 | W.PN.HOSP.TC ---
Addendum entered and electronically signed by Armand Ayala MD 08/15/24 09:23:
Cachexia without malnutrition
Original Note:
Today's Communication/Plan
-
Antibiotics
Assessment / Plan
Assessment / Plan
Physical exam:
General: Acutely ill
HEENT: Normocephalic, Atraumatic and Moist Mucous Membranes
Respiratory: Bilateral rhonchi; some wheezes; Negative Rales
Cardiac: Regular Rhythm and S1/S2
GI: Soft, Nontender and Nondistended
Musculoskeletal: No Clubbing, No Cyanosis and No Edema
Neuro: Awake, Alert and Oriented, no gross neurological deficit
Psych: Calm
A/P:
Acute hypoxic respiratory insufficiency:
CTA negative for PE
Supplemental oxygen
Broad-spectrum antibiotic
Systemic steroids
Continue Mucinex
Started Acapella
Pulmonary consult appreciated
Influenza/COVID-19 negative
Discussed with daughter at bedside yesterday
Pneumonia/Bronchitis/COPD exacerbation/and Bronchiectasis flare:
Continue IV ceftriaxone and doxycycline
Continue IV dexamethasone 4 mg every 12 hours
Continue Symbicort
Continue Spiriva
Continue bronchodilator
procal 0.09
Speech therapy for swallow eval
Cannot rule out interstitial edema though last echo normal EF and mild
Hyponatremia:
Sodium remains low
Give Lasix 20 mg IV x 1 today
Recheck renal function in a.m.
Check urine sodium and urine osmolarity and serum osmolarity
Started fluid restriction yesterday
Started also on salt tablet yesterday
TSH 0.53
Holding SSRI
Monitor sodium closely
Leukocytosis:
Likely reactive due to steroid
Hypertensive urgency:
Continue lisinopril
Continue IV hydralazine as needed
Sinus tachycardia/history of SVT in the past:
Monitor rate and rhythm
Elevated LFTs:
Monitor trend
History of orthostatic hypotension:
Monitor blood pressure
Cachexia/moderate protein calorie malnutrition:
Nutrition eval
Mild cognitive impairment:
Monitor mental status and behavior
Depression:
Holding escitalopram
History of compression fractures in the past T12 chronic proximal humeral fracture:
Pain control with tramadol as needed
DVT prophylaxis:
Heparin SQ--> switch to Lovenox SQ
CODE STATUS:
DNR
Time spent 52 minutes
Anticipated Discharge: 24 - 48 hours
Subjective/Interval History
-
Date of Service: August 14, 2024
Patient doing better overall. Afebrile.
Objective Data
-
Labs:
Laboratory Results
08/14/24
08:48
WBC 16.4 H
Hgb 12.6
Hct 36.8 L
Plt Count 315
Sodium Pending
Potassium Pending
Chloride Pending
Carbon Dioxide Pending
BUN Pending
Creatinine Pending
Glucose Pending
Calcium Pending
Total Bilirubin Pending
AST Pending
ALT Pending
Alkaline Phosphatase Pending
Vital Signs:
Vital Signs
Temp Pulse Resp BP Pulse Ox
97.9 F 78 18 120/77 99
08/14/24 07:45 08/14/24 07:45 08/14/24 07:45 08/14/24 07:45 08/14/24 07:45
I&O
08/13/24 08/14/24 08/15/24
06:59 06:59 06:59
Intake Total 600 / 600 1080 / 1080 300 / 300
Output Total 300 / 300 1575 / 1575
Balance 300 / 300 -495 / -495 300 / 300
[2024-08-14 10:31] LABS: ALT (SGPT) 74 U/L (0-35); AST (SGOT) 59 U/L (14-36); Albumin 3.3 g/dl (3.5-5.0); Alkaline Phosphatase 114 U/L (38-126); Blood Urea Nitrogen 24 mg/dl (7-17); Calcium 9.4 mg/dl (8.4-10.2); Carbon Dioxide 27 mmol/L (22-30); Chloride 94 mmol/L (98-107); Estimated Creatinine Clearance 47 ml/min; Glucose 102 mg/dl (70-99); Potassium 4.4 mmol/L (3.5-5.1); Sodium 131 mmol/L (135-145); Total Bilirubin 0.1 mg/dl (0.2-1.3); Total Protein 5.6 g/dl (6.3-8.2); eGFR > 60.00
[2024-08-14 11:45] LABS: % Basophils 0.5 % (0-2); % Eosinophils 0.1 % (0-6); % Immature Granulocytes 5.5 % (0-0.5); % Lymphocytes 3.4 % (20.5-51.1); % Monocytes 3.7 % (1.7-9.3); % Neutrophils 86.8 % (42.2-75.2); Absolute Basophils 0.1 10^3/uL (0-0.2); Absolute Immature Granulocytes 0.9 10^3/uL (0-0.05); Absolute Lymphocytes 0.6 10^3/uL (1.2-3.4); Absolute Monocytes 0.6 10^3/uL (0.1-0.6); Absolute Neutrophils 14.2 10^3/uL (1.4-6.5); Nucleated Red Blood Cells % 0 %
[2024-08-14] MEDS: LOVENOX 40 MG SC (18:02)
[2024-08-14] MEDS: STERILE WATER FOR INJECTION 10 ML IV (20:42)
[2024-08-14] MEDS: ROCEPHIN 1000 MG IV (20:42)
[2024-08-14] MEDS: ZESTRIL 5 MG PO (22:21)
[2024-08-15 03:55] VITALS: BP 112/67
[2024-08-15 06:00] VITALS: BMI 19.9
[2024-08-15 07:55] VITALS: BP 125/92
[2024-08-15 08:52] LABS: Hematocrit 34.9 % (37.0-47.0); Hemoglobin 11.7 g/dL (12.0-16.0); Mean Corp Hgb Conc. 33.5 g/dL (33.0-37.0); Mean Corpuscular Hgb 28.1 pg (27.0-31.0); Mean Corpuscular Volume 83.7 fL (81.0-99.0); Mean Platelet Volume 9.2 fL (7.4-10.4); Platelet Count 322 10^3/uL (130-400); Red Blood Cell Count 4.17 10^6/uL (4.20-5.40); Red Cell Dist. Width 14.3 % (11.5-14.5); White Blood Cell Count 15.4 10^3/uL (4.8-10.8)
[2024-08-15] MEDS: DELTASONE 40 MG PO (09:00)
[2024-08-15] MEDS: VITAMIN B-12 500 MCG PO ×2 (09:00→20:38)
[2024-08-15] MEDS: OCUVITE SOFTGEL 1 CAP PO ×2 (09:02→20:37)
[2024-08-15] MEDS: MUCINEX 1200 MG PO ×2 (09:02→20:37)
[2024-08-15] MEDS: SODIUM CHLORIDE 1 GRAM PO ×2 (09:02→20:37)
[2024-08-15] MEDS: OSCAL 500 + D 500 MG PO ×2 (09:03→20:38)
[2024-08-15] MEDS: VIBRAMYCIN 100 MG PO ×2 (09:03→20:37)
[2024-08-15] MEDS: VITAMIN B-6 100 MG PO ×2 (09:04→20:37)
[2024-08-15] MEDS: VITAMIN D3 (cholecalciferol) 50 MCG PO ×2 (09:04→20:38)
[2024-08-15] MEDS: XOPENEX 1.25 MG INHALANT SOLUTION INH ×3 (09:17→19:57)
[2024-08-15] MEDS: SPIRIVA RESPIMAT 2.5 MCG 2 PUFF INH (09:18)
[2024-08-15] MEDS: SYMBICORT 160/4.5 MCG INHALER 2 PUFF INH ×2 (09:18→19:57)
[2024-08-15 09:25] LABS: ALT (SGPT) 58 U/L (0-35); AST (SGOT) 40 U/L (14-36); Albumin 2.9 g/dl (3.5-5.0); Alkaline Phosphatase 97 U/L (38-126); Blood Urea Nitrogen 23 mg/dl (7-17); Calcium 8.9 mg/dl (8.4-10.2); Carbon Dioxide 29 mmol/L (22-30); Chloride 93 mmol/L (98-107); Estimated Creatinine Clearance 46 ml/min; Glucose 73 mg/dl (70-99); Potassium 4.5 mmol/L (3.5-5.1); Sodium 129 mmol/L (135-145); Total Bilirubin 0.2 mg/dl (0.2-1.3); Total Protein 5.2 g/dl (6.3-8.2); eGFR > 60.00
--- NOTE | 2024-08-15 09:51 | W.PN.HOSP.TC ---
Today's Communication/Plan
-
Antibiotics. Steroids.
Assessment / Plan
Assessment / Plan
Physical exam:
General: Acutely ill
HEENT: Normocephalic, Atraumatic and Moist Mucous Membranes
Respiratory: Bilateral rhonchi; some wheezes; Negative Rales
Cardiac: Regular Rhythm and S1/S2
GI: Soft, Nontender and Nondistended
Musculoskeletal: No Clubbing, No Cyanosis and No Edema
Neuro: Awake, Alert and Oriented, no gross neurological deficit
Psych: Calm
A/P:
Acute hypoxic respiratory insufficiency:
CTA negative for PE
Supplemental oxygen
Broad-spectrum antibiotic
Systemic steroids
Continue Mucinex
Started Acapella
Pulmonary consult appreciated
Influenza/COVID-19 negative
Discussed with daughter at bedside prior-tried call today but unsuccessful
Pneumonia/Bronchitis/COPD exacerbation/and Bronchiectasis flare:
Continue IV ceftriaxone and doxycycline and switch to oral tomorrow
Change IV steroids to oral prednisone 40 mg p.o. today
Continue Symbicort
Continue Spiriva
Continue bronchodilator
procal 0.09
Speech therapy for swallow eval
Cannot rule out interstitial edema though last echo normal EF and mild
Hyponatremia:
Sodium fluctuating. Improved yesterday and today slightly lower
Lasix given before
Recheck renal function in a.m.
Check urine sodium and urine osmolarity and serum osmolarity
Continue fluid restriction
Continue on salt tablet
TSH 0.53
Holding SSRI
Monitor sodium closely
Leukocytosis:
Likely reactive due to steroid
Hypertensive urgency:
Continue lisinopril
Continue IV hydralazine as needed
Sinus tachycardia/history of SVT in the past:
Monitor rate and rhythm
Elevated LFTs:
Monitor trend
History of orthostatic hypotension:
Monitor blood pressure
Cachexia without malnutrition
Nutrition eval
Mild cognitive impairment:
Monitor mental status and behavior
Depression:
Holding escitalopram
History of compression fractures in the past T12 chronic proximal humeral fracture:
Pain control with tramadol as needed
DVT prophylaxis:
Lovenox SQ
CODE STATUS:
DNR
Anticipated Discharge: Within 24 hours
Subjective/Interval History
-
Date of Service: August 15, 2024
Patient feels better today. Less shortness of breath on exertion. Less cough. Afebrile. She is moving around more.
Objective Data
-
Labs:
Laboratory Results
08/15/24 08/15/24
07:04 07:05
WBC 15.4 H
Hgb 11.7 L
Hct 34.9 L
Plt Count 322
Sodium 129 L
Potassium 4.5
Chloride 93 L
Carbon Dioxide 29
BUN 23 H
Creatinine 0.8
Glucose 73
Calcium 8.9
Total Bilirubin 0.2
AST 40 H
ALT 58 H
Alkaline Phosphatase 97
Vital Signs:
Vital Signs
Temp Pulse Resp BP Pulse Ox
97.8 F 90 16 125/92 94
08/15/24 07:55 08/15/24 09:26 08/15/24 09:26 08/15/24 07:55 08/15/24 07:55
I&O
08/14/24 08/15/24 08/16/24
06:59 06:59 06:59
Intake Total 1080 / 1080 540 / 540
Output Total 1575 / 1575 1450 / 1450
Balance -495 / -495 -910 / -910
[2024-08-15 10:27] LABS: % Basophils 0.5 % (0-2); % Eosinophils 0.5 % (0-6); % Immature Granulocytes 7.6 % (0-0.5); % Lymphocytes 6.7 % (20.5-51.1); % Monocytes 7.3 % (1.7-9.3); % Neutrophils 77.4 % (42.2-75.2); Absolute Basophils 0.1 10^3/uL (0-0.2); Absolute Eosinophils 0.1 10^3/uL (0-0.7); Absolute Immature Granulocytes 1.2 10^3/uL (0-0.05); Absolute Monocytes 1.1 10^3/uL (0.1-0.6); Absolute Neutrophils 11.9 10^3/uL (1.4-6.5); Nucleated Red Blood Cells % 0 %
[2024-08-15 11:55] VITALS: BP 127/80
[2024-08-15 15:30] VITALS: BP 121/76
--- NOTE | 2024-08-15 16:21 | PTCARENOTE ---
Pt ambulated in hallway on room air. Pulse ox 96% on RA. Pt ambulated in hallway pulse ox 89-91% on RA. HR 120-130s pt visibly short of breath and slightly unsteady on feet. Placed on 2L pulse ox 91-92%.
[2024-08-15] MEDS: LOVENOX 40 MG SC (17:41)
--- NOTE | 2024-08-15 18:32 | W.PN.PUL3 ---
Today's Communication / Plan
-
Continue antibiotics, will complete total of 7 days with cultures negative.
Prednisone taper 40 mg and decrease by 10 mg every fourth day.
Continue inhalers
Nebulizers as needed
May continue Acapella device at home
Continue oxygen supplementation to maintain pulse ox above 90%. Home oxygen assessment prior to discharge-does not use supplemental oxygen at home, may need oxygen temporarily at discharge.
No additional recommendation at this point
Sign off
Agree with discharge planning and [id number] that the patient will be short of breath with exertion for quite some time until pneumonia clears
Assessment
-
84-year-old woman with history of COPD/bronchiectasis came to the hospital complaining of cough/shortness of breath some confusion, shortness of breath found to have abnormal CT chest with bibasilar mucous plugging, pneumonia severe bronchial
thickening.
Impression:
Possible bronchiectasis/COPD exacerbation-acute bronchitis/pneumonia
Abnormal CT chest: Possible pneumonia of the lower lobes/bronchiolitis
Hyponatremia
Cannot rule out interstitial pulmonary edema: proBNP 1170
Echocardiogram 02/26/2024: Normal LVEF. No significant valvular abnormalities.
Hypertensive urgency - resolved
Sinus tachycardia - resolved
History of paroxysmal SVT
Conditions present prior admission:
COPD/emphysema
Bronchiectasis
Follows with Dr. Smart-last visit 05/21/2024
On Trelegy
No oxygen requirements at that time-her DLCO was 36%.
History of lung nodules followed in the outpatient setting he was recommended not to continue to follow-up at that time.
Hypertension
History of orthostatic hypotension
Macular degeneration
Cachexia
History of depression
History of T12 and plate compression fracture status post fall
Right proximal humerus fracture February 2024
Hard of hearing
Mild cognitive impairment
Former smoker 68 years on and off approximately 1 pack/day-quit 6 years
Assessment and plan:
Clinical picture suggest exacerbation of bronchiectasis with bronchiolitis: Bibasilar infiltrates may be pneumonia versus mucous plugging from bronchitis; she has significant bronchial wall thickening seen predominantly in the lower lobes
Agree with antibiotics to cover for community-acquired infection ceftriaxone/doxycycline
Influenza negative
COVID-negative
Sputum culture collected today shows NGTD
Currently afebrile; WBC elevated (likely steroid induced)-improved.
-
Clinically improved since admission 08/15/2024 but is still complaining of exertional dyspnea, suspect due to underlying pneumonia that is healing this will take time.
Not bronchospastic on exam
On 2 L supplemental oxygen, wean off as able while keeping SpO2 88-95% currently on 2 L.
Check ambulatory pulse oximetry prior to discharge 08/16/2024 May need supplemental oxygen temporary to go home.
Patient had difficulty expectorating and complains of exertional shortness of breath which is new compared to prior --> as of 08/13/2023 she denies cough or chest congestion
Secretion clearance interventions prn
Acapella device
Not bronchospastic on exam 08/15/2024.
Agree with IV dexamethason transition to prednisone taper (started 08/15/2024) 40mg and reduce by 10 mg every fourth day until off
Levalbuterol 3 times daily (avoid beta agonist due to tachycardia and history of SVT)
Continue tiotropium/Symbicort
-
Given bibasilar abnormalities: Rule out intermittent aspiration. Speech evaluation performed on 08/12/2024 with no overt signs/symptoms of aspiration --> continue to monitor
Patient denies any swallowing problems
-
Will need radiographic follow-up in the outpatient setting
[facility] records reviewed - patient has known tiny lung nodules and no further imaging was recommended in 2019.
-
Hyponatremia management per primary team.
-
Maintain blood sugar levels-Target >100 and <180; can use ISS SQ if needed
-
DVT prophylaxis- LMWH
-
Outpatient follow-up with Dr. Smart after DC.
Disposition planning. Believe that she will be ready for discharge over the next 24 hours.
No additional recommendations. Agree with discharge planning tomorrow if continues to be stable.

Data reviewed:
CT chest: 08/11/2024
1. SEVERE ACUTE BRONCHITIS in the lower lobes with severe endobronchial disease in the basilar segments of both lower lobes. Small bilateral lower lobe subpleural airspace consolidations. Diagnostic possibilities are (1) BILATERAL LOWER LOBE
ASPIRATION PNEUMONIA or (2) peripheral endobronchial infection and mild bacterial pneumonia.
2. Moderate interstitial cardiogenic pulmonary edema.
3. Moderate bilateral upper lobe centrilobular emphysema.
4. Multiple small solid centrilobular pulmonary nodules in the lower lobes measuring less than 6 mm in size (probably secondary to endobronchial infection or aspiration). A follow-up chest CT examination in 12 months is recommended.
5. Moderate calcific atherosclerotic plaque in the coronary arteries and thoracic aorta.
6. Small pericardial effusion.
7. 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
8. Subacute superior and inferior endplate fractures of T12 with vertebral body collapse.
Total time spent today was 38 minutes for this encounter. Time includes reviewing laboratory test/imaging results, reviewing pertinent medical records, obtaining and reviewing medical history, performing an appropriate exam, ordering medications,
tests and procedures. Time also includes documentation of this encounter, coordinating patient care and communicating with other healthcare professionals. Total time does not include separately billed tests performed on this date of service.
Subjective Data
-
Date of Service:
Date of Service: August 15, 2024
Chief Complaint: Pulmonary Follow Up
Objective Data
Data Reviewed
Vital Signs / I&O / Oxygen:
Vital Signs
Temp Pulse Resp BP Pulse Ox
97.4 F 91 20 121/76 95
08/15/24 15:30 08/15/24 15:30 08/15/24 15:30 08/15/24 15:30 08/15/24 15:30
Intake and Output
08/14/24 08/15/24 08/16/24
06:59 06:59 06:59
Intake Total 1080 / 1080 540 / 540
Output Total 1575 / 1575 1450 / 1450
Balance -495 / -495 -910 / -910
SaO2 95
Nasal Cannula flow liters per 2
minute
Physical Exam
General: Respiratory Distress (negative) and Comfortable
HEENT: Normocephalic and Anicteric
Cardiovascular: Rub (negative), Peripheral Edema (negative) and Other (Distant heart sounds; normal rate)
Respiratory: Wheeze (negative), Crackles (Bibasilar), Rhonchi (Bibasilar), Non-Labored Respirations and Other (Diminished breath sounds bilaterally)
GI: Soft, Non Distended, Non Tender and Normal Bowel Sounds
Neurology: AO x 3 and Tremors (negative)
Skin: Warm, Dry, Cyanosis (negative) and Jaundice (negative)
Labs/Micro/Reports
Lab Data
08/15/24 07:05
08/15/24 07:04
Microbiology
08/14/24 02:51 Sputum Respiratory Culture - Preliminary
Usual Respiratory Iliana
08/14/24 02:51 Sputum Gram Stain - Preliminary
[2024-08-15 19:40] VITALS: BP 117/74
[2024-08-15] MEDS: ROCEPHIN 1000 MG IV (20:38)
[2024-08-15] MEDS: STERILE WATER FOR INJECTION 10 ML IV (20:38)
[2024-08-15] MEDS: ZESTRIL 5 MG PO (21:59)
[2024-08-15 23:55] VITALS: BP 114/72
[2024-08-16] VITALS (7 sets, daily range): BP systolic 98–134; BP diastolic 56–85; O2SAT 95; BMI 19.7
[2024-08-16 08:12] LABS: Hematocrit 33.5 % (37.0-47.0); Hemoglobin 11.4 g/dL (12.0-16.0); Mean Corpuscular Hgb 28.5 pg (27.0-31.0); Mean Corpuscular Volume 83.8 fL (81.0-99.0); Platelet Count 306 10^3/uL (130-400); Red Cell Dist. Width 14.4 % (11.5-14.5)
--- NOTE | 2024-08-16 08:31 | W.PN.HOSP.TC ---
Today's Communication/Plan
-
Continue oral steroids. Continue IV antibiotics. PT OT eval. Assess for home oxygen need
Assessment / Plan
Assessment / Plan
Physical exam:
General: Acutely ill
HEENT: Normocephalic, Atraumatic and Moist Mucous Membranes
Respiratory: Bilateral rhonchi; some wheezes; Negative Rales
Cardiac: Regular Rhythm and S1/S2
GI: Soft, Nontender and Nondistended
Musculoskeletal: No Clubbing, No Cyanosis and No Edema
Neuro: Awake, Alert and Oriented, no gross neurological deficit
Psych: Calm
A/P:
Acute hypoxic respiratory insufficiency:
CTA negative for PE
Supplemental oxygen
Broad-spectrum antibiotic
Systemic steroids
Continue Mucinex
Started Acapella
Pulmonary consult appreciated
Influenza/COVID-19 negative
Discussed with daughter at bedside prior
We will check for home oxygen today
Pneumonia/Bronchitis/COPD exacerbation/and Bronchiectasis flare:
Continue IV ceftriaxone and doxycycline and switch to oral tomorrow
Change IV steroids to oral prednisone 40 mg p.o. today
Continue Symbicort
Continue Spiriva
Continue bronchodilator
procal 0.09
Speech therapy for swallow eval
Cannot rule out interstitial edema though last echo normal EF and mild
Hyponatremia:
Sodium fluctuating. Improved yesterday and today slightly lower
Lasix given before
Recheck renal function in a.m.
Check urine sodium and urine osmolarity and serum osmolarity
Continue fluid restriction
Continue on salt tablet
TSH 0.53
Holding SSRI
Monitor sodium closely
Leukocytosis:
Likely reactive due to steroid
Hypertensive urgency:
Continue lisinopril
Continue IV hydralazine as needed
Sinus tachycardia/history of SVT in the past:
Monitor rate and rhythm
Elevated LFTs:
Monitor trend
History of orthostatic hypotension:
Monitor blood pressure
Cachexia without malnutrition
Nutrition eval
Mild cognitive impairment:
Monitor mental status and behavior
Depression:
Holding escitalopram
History of compression fractures in the past T12 chronic proximal humeral fracture:
Pain control with tramadol as needed
DVT prophylaxis:
Lovenox SQ
CODE STATUS:
DNR
Anticipated Discharge: 24 - 48 hours
Subjective/Interval History
-
Date of Service: August 16, 2024
Patient still with shortness of breath today. She does not feel ready for discharge. She is on supplemental oxygen. Afebrile
Objective Data
-
Labs:
Laboratory Results
08/16/24
06:54
WBC 15.0 H
Hgb 11.4 L
Hct 33.5 L
Plt Count 306
Sodium Pending
Potassium Pending
Chloride Pending
Carbon Dioxide Pending
BUN Pending
Creatinine Pending
Glucose Pending
Calcium Pending
Vital Signs:
Vital Signs
Temp Pulse Resp BP Pulse Ox
98.1 F 76 20 134/85 97
08/16/24 03:40 08/16/24 03:40 08/16/24 03:40 08/16/24 03:40 08/16/24 03:40
I&O
08/15/24 08/16/24 08/17/24
06:59 06:59 06:59
Intake Total 540 / 540 240 / 240 240 / 240
Output Total 1450 / 1450 800 / 800 750 / 750
Balance -910 / -910 -560 / -560 -510 / -510
[2024-08-16] MEDS: VITAMIN B-12 500 MCG PO ×2 (08:37→20:55)
[2024-08-16] MEDS: OSCAL 500 + D 500 MG PO ×2 (08:38→20:54)
[2024-08-16] MEDS: MUCINEX 1200 MG PO ×2 (08:39→20:54)
[2024-08-16] MEDS: VIBRAMYCIN 100 MG PO ×2 (08:39→20:54)
[2024-08-16] MEDS: VITAMIN B-6 100 MG PO ×2 (08:39→20:54)
[2024-08-16] MEDS: OCUVITE SOFTGEL 1 CAP PO ×2 (08:39→20:54)
[2024-08-16] MEDS: DELTASONE 40 MG PO (08:40)
[2024-08-16] MEDS: SODIUM CHLORIDE 1 GRAM PO ×2 (08:40→20:54)
[2024-08-16] MEDS: VITAMIN D3 (cholecalciferol) 50 MCG PO ×2 (08:40→20:54)
[2024-08-16 08:45] LABS: Blood Urea Nitrogen 25 mg/dl (7-17); Calcium 8.5 mg/dl (8.4-10.2); Carbon Dioxide 31 mmol/L (22-30); Chloride 94 mmol/L (98-107); Estimated Creatinine Clearance 46 ml/min; Glucose 77 mg/dl (70-99); Potassium 4.5 mmol/L (3.5-5.1); Sodium 130 mmol/L (135-145); eGFR > 60.00
[2024-08-16] MEDS: XOPENEX 1.25 MG INHALANT SOLUTION INH ×3 (08:58→19:22)
[2024-08-16] MEDS: SPIRIVA RESPIMAT 2.5 MCG 2 PUFF INH (08:58)
[2024-08-16] MEDS: SYMBICORT 160/4.5 MCG INHALER 2 PUFF INH ×2 (08:58→19:22)
[2024-08-16 10:13] LABS: % Basophils 0.8 % (0-2); % Eosinophils 1.4 % (0-6); % Immature Granulocytes 9.5 % (0-0.5); % Lymphocytes 7.7 % (20.5-51.1); % Monocytes 7.5 % (1.7-9.3); % Neutrophils 73.1 % (42.2-75.2); Absolute Basophils 0.1 10^3/uL (0-0.2); Absolute Eosinophils 0.2 10^3/uL (0-0.7); Absolute Immature Granulocytes 1.4 10^3/uL (0-0.05); Absolute Lymphocytes 1.2 10^3/uL (1.2-3.4); Absolute Monocytes 1.1 10^3/uL (0.1-0.6); Nucleated Red Blood Cells % 0 %
[2024-08-16] MEDS: LOVENOX 40 MG SC (17:14)
[2024-08-16] MEDS: STERILE WATER FOR INJECTION 10 ML IV (20:55)
[2024-08-16] MEDS: ROCEPHIN 1000 MG IV (20:55)
[2024-08-16] MEDS: ZESTRIL 5 MG PO (23:33)
[2024-08-17 03:35] VITALS: BP 128/81
[2024-08-17 06:00] VITALS: BMI 19.6
[2024-08-17 06:54] VITALS: BP 114/75
[2024-08-17] MEDS: SPIRIVA RESPIMAT 2.5 MCG 2 PUFF INH (08:31)
[2024-08-17] MEDS: SYMBICORT 160/4.5 MCG INHALER 2 PUFF INH (08:32)
[2024-08-17] MEDS: XOPENEX 1.25 MG INHALANT SOLUTION INH ×2 (08:32→13:33)
[2024-08-17 09:03] LABS: Blood Urea Nitrogen 27 mg/dl (7-17); Carbon Dioxide 32 mmol/L (22-30); Chloride 92 mmol/L (98-107); Estimated Creatinine Clearance 46 ml/min; Glucose 63 mg/dl (70-99); Potassium 4.5 mmol/L (3.5-5.1); Sodium 131 mmol/L (135-145); eGFR > 60.00
[2024-08-17 09:12] LABS: Hematocrit 38.4 % (37.0-47.0); Hemoglobin 12.3 g/dL (12.0-16.0); Mean Corpuscular Hgb 27.7 pg (27.0-31.0); Mean Corpuscular Volume 86.5 fL (81.0-99.0); Mean Platelet Volume 8.9 fL (7.4-10.4); Platelet Count 304 10^3/uL (130-400); Red Blood Cell Count 4.44 10^6/uL (4.20-5.40); Red Cell Dist. Width 14.6 % (11.5-14.5); White Blood Cell Count 14.5 10^3/uL (4.8-10.8)
[2024-08-17] MEDS: MUCINEX 1200 MG PO (09:37)
[2024-08-17] MEDS: VIBRAMYCIN 100 MG PO (09:37)
[2024-08-17] MEDS: OCUVITE SOFTGEL 1 CAP PO (09:37)
[2024-08-17] MEDS: VITAMIN B-12 500 MCG PO (09:38)
[2024-08-17] MEDS: VITAMIN D3 (cholecalciferol) 50 MCG PO (09:39)
[2024-08-17] MEDS: OSCAL 500 + D 500 MG PO (09:39)
[2024-08-17] MEDS: DELTASONE 40 MG PO (09:39)
[2024-08-17] MEDS: SODIUM CHLORIDE 1 GRAM PO (09:39)
[2024-08-17] MEDS: VITAMIN B-6 100 MG PO (09:39)
[2024-08-17] MEDS: FLUSH (NSS) 1 FLUSH IV (09:51)
[2024-08-17 12:38] LABS: Absolute Neutrophils -Man Diff 11.1 10^3/uL (1.4-6.5); Band Neutrophils 4 % (0-3); Eosinophils 2 % (0-6); Lymphocytes 5 % (20-51); Monocytes 4 % (2-9); Myelocytes 12 % (-); Segmented Neutrophils 73 % (42-75)
[2024-08-17 12:39] LABS: Normal RBC Morphology Yes; Platelets Checked Yes; Total Cells Counted 100
--- NOTE | 2024-08-17 13:44 | CM ---
Per hospitalist, pt is medically stable for d/c.
Pt is now off O2 and does not have any home O2 needs
PT/OT recommending HH at d/c. Discussed this w/ pt who advised for CM to consult her daughter, Esthela.
CM spoke w/ Esthela regarding HH recommendation. Per Esthela, she believes it's a good idea as pt has been laying in the bed and can benefit from some home PT. Esthela identified [facility] as provider, TT hospitalist regarding VN order
CM sent referral to [facility] via [facility]
IMM reviewed, copy in chart
Esthela will transport pt home at d/c
[facility]

Plan: Home w/ [facility]
--- NOTE | 2024-08-17 14:31 | W.PN.HOSP.TC ---
Today's Communication/Plan
-
d/c planning
Assessment / Plan
Assessment / Plan
Acute hypoxic respiratory insufficiency - Resolved
CTA negative for PE
weaned off o2
Pneumonia/Bronchitis/COPD exacerbation/and Bronchiectasis flare:
Continue IV ceftriaxone and doxycycline and switch to oral tomorrow
Steroids has been changed to oral at this point.
Influenza/COVID-19 negative
Continue Symbicort
Continue Spiriva
Continue bronchodilator
procal 0.09
Speech therapy for swallow eval
Cannot rule out interstitial edema though last echo normal EF and mild
Hyponatremia - resolved
Sodium fluctuating. Improved yesterday and today slightly lower
Lasix given before
Urine Na 11 Uosm 577
Continue fluid restriction
Continue on salt tablet
TSH 0.53
SSRI needs to be discontinued if continues to have recurrent hyponatremia
Leukocytosis:
Likely reactive due to steroid
Hypertensive urgency:
Continue lisinopril
Continue IV hydralazine as needed
Sinus tachycardia/history of SVT in the past:
Monitor rate and rhythm
Elevated LFTs:
Monitor trend
History of orthostatic hypotension:
Monitor blood pressure
Cachexia without malnutrition
Nutrition eval
Mild cognitive impairment:
Monitor mental status and behavior
Depression:
Holding escitalopram
History of compression fractures in the past T12 chronic proximal humeral fracture:
Pain control with tramadol as needed
DVT prophylaxis:
Lovenox SQ
CODE STATUS:
DNR
More than 30 minutes spent in discharge including
Final examination of the patient
Summarizing hospital stay
Instructions for continuing care to all relevant caregivers
Preparation of discharge records, prescriptions, and referral forms
Total time spent (in minutes): 38 mins
Anticipated Discharge: Today
Subjective/Interval History
-
Date of Service: August 17, 2024
Resting comfortably in bed
Denies dyspnea
Off of oxygen
Objective Data
-
Labs:
Laboratory Results
08/17/24
07:16
WBC 14.5 H
Hgb 12.3
Hct 38.4
Plt Count 304
Sodium 131 L
Potassium 4.5
Chloride 92 L
Carbon Dioxide 32 H
BUN 27 H
Creatinine 0.8
Glucose 63 L
Calcium 9.0
Vital Signs:
Vital Signs
Temp Pulse Resp BP Pulse Ox
98 F 88 19 114/75 93
08/17/24 06:54 08/17/24 08:41 08/17/24 08:41 08/17/24 06:54 08/17/24 09:36
I&O
08/16/24 08/17/24 08/18/24
06:59 06:59 06:59
Intake Total 240 / 240 960 / 960
Output Total 800 / 800 2350 / 2350
Balance -560 / -560 -1390 / -1390
Review of Systems
-
Respiratory: Reports No Symptoms
Cardiac: Reports No Symptoms
Abdomen/GI: Reports No Symptoms
Physical Exam
-
General: No Apparent Distress and Comfortable
HEENT: Negative Oxygen
Respiratory: Clear to Auscultation
Cardiac: Regular Rhythm and S1/S2; Negative Murmur or Rub
GI: Soft, Nontender and Nondistended
Musculoskeletal: No Edema
Neuro: Awake, Alert, Oriented, No Motor Deficits and Nonfocal/Grossly Intact
Psych: Calm
--- NOTE | 2024-08-17 14:43 | PTCARENOTE ---
Pt ambulated around [facility] nurses stations on room air- resting pulse ox 92%; ambulatory pulse ox 90%; pulse ox after ambulation/rest period 92%. Dr. Franklin notified.
[2024-08-17 14:52] VITALS: BP 120/72
--- NOTE | 2024-08-17 17:25 | W.DCSUMMARY ---
Discharge Summary
Discharge Data
Date of Admission: 08/11/24
Date of Discharge: 08/17/24
-
Pending Results: No
Hospital Course
Discharging Physician : Dr Low Franklin
Disposition : Home
Primary care physician : Dr Zee Garland
Principal Discharge diagnosis :
Acute hypoxic respite insufficiency
Chronic obstructive pulmonary disease flareup
Acute bronchitis/Community acquired pneumonia
Hyponatremia
Hypertensive urgency
Chronic Discharge diagnosis :
Orthostatic hypotension
Cachexia without malnutrition
Mild cognitive impairment
Depression
History of thoracic 12 compression fracture
History of proximal humeral fracture
Hospital Course :
Patient is a 84-year-old female with no mentioned past medical history came to ER for shortness of breath and nonproductive cough for few days. In ER patient was noted to be hypoxic based on imaging there was concern of patient possibly having
flareup of COPD with acute bronchitis/bronchiectasis. A CT chest PE was done which ruled out any underlying pulmonary embolism. Patient was started on empiric antibiotics and steroids. Pulmonology was involved in care and was following along
during the hospital stay. Patient had minimal elevated proBNP and echocardiogram in the past that showed no significant ejection fraction decline. Patient also had hyponatremia and was required to given Lasix and started on fluid restriction.
Patient is on SSRI which probably needs to be discontinued if patient continues to have recurrent episodes of hyponatremia. Post medical stabilization patient was discharged home.
Important imaging findings :
None
Procedure findings :
None
Discharge Plan
-
Patient Disposition: Home (Routine Discharge)
Discharge Diagnosis/Procedures: COPD flare up, Pneumonia
Condition: Fair
Diet: Regular
Activity: As tolerated
Driving Restrictions: No driving
Bathing Restrictions: OK to Shower
Referrals:
Ally Smart MD [Active] - in six weeks
Zee Garland DO [Family Provider] - in one week
Prescriptions:
New
prednisone 10 mg Tablet
See Rx Instructions .ROUTE .COMPLEX Qty: 30 0RF
Rx Instructions:
Take By Mouth:
40 mg daily x3 days, 30 mg daily x3 days,
20 mg daily x3 days, 10 mg daily x3 days.
Continued
calcium carbonate-vitamin D3 600 mg-5 mcg (200 unit) Tablet
1 tab PO BID
cyanocobalamin (vitamin B-12) 500 mcg Tablet
500 mcg PO BID
pyridoxine (vitamin B6) 100 mg Tablet
100 mg PO BID
cholecalciferol (vitamin D3) [Vitamin D3] 50 mcg (2,000 unit) Tablet
50 mcg PO BID
PreserVision AREDS-2 250-90-40-1 mg Capsule
1 tab PO BID
glucosamine mancia 2KCl-chondroit [Glucosamine-Chondroitin 3X Str] 750-600 mg Tablet
1 tab PO BID
Trelegy Ellipta 200-62.5-25 mcg Blister With Device
1 inh INHALATION R DAILY
tramadol 50 mg Tablet
50 mg PO DAILYPRN PRN (Reason: moderate pain)
lisinopril 10 mg Tablet
5 mg PO HS
albuterol sulfate 90 mcg/actuation Hfa Aerosol Inhaler
2 puff INHALATION R Q6HPRN PRN (Reason: sob)
escitalopram oxalate 10 mg Tablet
10 mg PO HS
Discharge Orders:
Discharge Patient (As Directed); Ordered 08/17/24
Ordered By: Low Franklin
Discharge Date and Time
Discharge Date/Time: 08/17/24 15:38
Print Language: OCCITAN
== END 2024-08-17 15:38 | disposition home health service (06) | DRG 640 ==
LOC: 4 EAST ACU 18:27
PROVIDERS: Clinical Nurse Specialist Family Health; Emergency Medicine; Hospitalist; ADMITTING PHYSICIAN Hospitalist; ATTENDING PHYSICIAN Hospitalist; CONSULT PHYSICIAN Internal Medicine Critical Care Medicine; EMERGENCY PHYSICIAN Emergency Medicine; FAMILY PHYSICIAN Family Medicine
DX: E87.1 Hypo-osmolality and hyponatremia (principal); J18.9 Pneumonia, unspecified organism; R64 Cachexia; Z68.1 Body mass index [BMI] 19.9 or less, adult; J44.1 Chronic obstructive pulmonary disease with (acute) exacerbation; J44.0 Chronic obstructive pulmonary disease with (acute) lower respiratory infection; Z87.891 Personal history of nicotine dependence; I16.0 Hypertensive urgency; F32.A Depression, unspecified; Z66 Do not resuscitate; R06.89 Other abnormalities of breathing; Z11.52 Encounter for screening for COVID-19; J43.2 Centrilobular emphysema; R09.02 Hypoxemia
CPT/HCPCS: 71046; 71275; 80048; 80053; 83036; 83735; 83880; 83930; 83935; 84145; 84300; 84443; 84484; 85025; 87070; 87205; 87502; 87811; 92526; 92610; 93005; 94640; 97116; 97161; 97166; 97530; 99285; Q9967

== ENCOUNTER → 2024-08-27 13:30 | Outpatient (REF) | payer OTHER, SELFPAY | LOC: WOUND 13:30 | PROVIDERS: ATTENDING PHYSICIAN Surgery; FAMILY PHYSICIAN Physician Assistant | DX: L97.212 Non-pressure chronic ulcer of right calf with fat layer exposed (principal); R26.9 Unspecified abnormalities of gait and mobility; Z91.81 History of falling | CPT/HCPCS: 99212 ==

== ENCOUNTER → 2024-09-30 14:39 | Outpatient (REF) | payer OTHER, SELFPAY | LOC: RAD 14:39 | PROVIDERS: ATTENDING PHYSICIAN Nurse Practitioner Family; FAMILY PHYSICIAN Physician Assistant | DX: R60.0 Localized edema (principal); Z87.01 Personal history of pneumonia (recurrent) | CPT/HCPCS: 71046; 93971 ==

== ENCOUNTER → 2025-01-01 09:15 | Outpatient (REF) | payer OTHER, SELFPAY | LOC: DHSLP 09:15 | PROVIDERS: ATTENDING PHYSICIAN Internal Medicine Critical Care Medicine; FAMILY PHYSICIAN Physician Assistant | DX: G47.61 Periodic limb movement disorder (principal); R06.83 Snoring | CPT/HCPCS: 95810 ==

== ENCOUNTER 2025-02-06 22:50 | Inpatient (IN) | payer OTHER, SELFPAY ==
[2025-02-06] VITALS (8 sets, daily range): BP systolic 115–204; BP diastolic 78–126; BMI 18.5
--- NOTE | 2025-02-06 17:17 | ED.GENMED ---
History of Present Illness
General
Chief Complaint: Breathing Problem
Source: patient and family
Time Seen by Provider: 02/06/25 16:57
History of Present Illness
History of Present Illness:
84-year-old female presents emergency room complaining of shortness of breath. Patient states has been feeling increased shortness of breath for the past couple days. Symptoms are worse today. She felt like she could not get out of the chair to
do anything. Her shortness of breath is present at rest but gets much worse with exertion. No chest pain. No fever or chills. No change in cough. Patient is known to Dr. Torres. She does have a rescue inhaler but has difficulty maneuvering it
and therefore did not use it today.
Past History
Past History
ED Past Medical History: COPD
ED Past Surgical History: None and Other (Tubal ligation)
Patient has exhibited threatening behavior?: No
PSI?: No
Social History
Tobacco: Former smoker
Personal: Single
Living: alone
Family History
Family History: Negative Diabetes or CAD
Phy Exam
Physical Exam
Physical Exam:
General: Awake, Alert, Oriented X3. No acute distress. Appears stated age and chronically ill
Vitals: unremarkable
Head: Atraumatic
Eyes: Pupils equal, EOMI
Throat: Airway intact, no exudates
Neck: Trachea midline
Lungs: Barrel chest, decreased breath sounds throughout
Heart: Regular rate, no murmurs
Abd: Soft, Nontender, No pulsatile mass
Neuro: Nonfocal
Skin: Warm, dry, no rash
Extremities: pulses equal b/l, no edema
Scores
Heart Failure Risk
Heart Failure Risk Score: Not Applicable
Course
Orders/Labs/Results
Orders:
Orders
02/06/25 16:27
Electrocardiogram (*1) Urgent
Reason for Study: Other
Other Reason for Exam: Respiratory Distress
Cardiac Monitoring- Treatment ONCE
EKG- Treatment ONCE
IV Insert/Care/Rem.- Treatment PRN
CR Chest - 2 Views Urgent
Comment:
Reason For Exam: respiratory distress
O2 Therapy [RESP] Urgent
Titrate/Wean O2 to maintain O2 sat greater than (%): 93
Special Instructions: TO MAINTAIN CONTINUOUS O2 SATS >/= 93%
Pulse Ox/cont/shift [RESP] Urgent
Quantity: 1
Special Instructions: continuous pulse ox
02/06/25 17:14
Ipratropium/Albuterol Sulfate [Duoneb] 3 ml INH R NOW STA
02/06/25 17:25
Complete Blood Count/With Diff Urgent
Comprehensive Metabolic Panel Urgent
D-Dimer Urgent
02/06/25 18:56
CT Chest PE Study Urgent
Comment:
Reason For Exam: sob, chest pain
02/06/25 19:10
NT-proBNP Urgent
02/06/25 21:44
CefTRIAXone [Rocephin] 1,000 mg IV NOW STA
Doxycycline [Vibramycin] 100 mg PO NOW STA
Abnormal Lab Results
02/06/25
17:25
WBC 11.6 H 10^3/uL
(4.8-10.8)
Absolute Neuts (auto) 9.8 H 10^3/uL
(1.4-6.5)
Absolute Lymphs (auto) 0.7 L 10^3/uL
(1.2-3.4)
Absolute Monos (auto) 0.9 H 10^3/uL
(0.1-0.6)
Neutrophils % 85.0 H %
(42.2-75.2)
Lymphocytes % 6.1 L %
(20.5-51.1)
D-Dimer 0.85 H ug/mlFEU
(0.00-0.50)
BUN 20 H mg/dl
(7-17)
Glucose 114 H mg/dl
(70-99)
AST 38 H U/L
(14-36)
02/06/25 17:25
02/06/25 17:25
Vital Signs
Initial and Last Documented VS:
Initial Vital Signs
Temp Pulse Resp BP Pulse Ox
99.4 F 115 24 204/126 86
02/06/25 16:23 02/06/25 16:23 02/06/25 16:23 02/06/25 16:23 02/06/25 16:23
Last Documented Vital Signs
Temp Pulse Resp BP Pulse Ox
99.4 F 114 26 138/103 89
02/06/25 16:23 02/06/25 21:00 02/06/25 21:00 02/06/25 21:00 02/06/25 21:00
MDM/Problems Addressed
Differential Diagnosis Includes:
COPD exacerbation, pneumothorax, pneumonia, anemia
MDM/Problems Addressed:
Patient presents to the emergency room with worsening short of breath, cough. Physical exam does not reveal significant wheezing. She was given a DuoNeb without any real improvement. Patient's D-dimer is mildly elevated so CT angiogram was
performed. There is no evidence for PE. She does have multifocal pneumonia however. Will treat the patient with ceftriaxone and doxycycline. She will require hospitalization given her hypoxia age and COPD.
*Radiology
Radiology exam reviewed: preliminary read by ED provider (No acute abnormality on my review of the patient's chest x-ray) and radiology read reviewed
*Pulse Oximetry
SaO2: 91
Oxygen Mode of Delivery: Room air
Patient hypoxic: yes
*EKG
Interpreted by ED Provider?: Yes
Heart Rate: 110
Rate: tachycardiac
Rhythm: sinus tachycardia
Ford: normal axis
Interval: normal interval
QRS Pattern: normal QRS
Ischemia: no ischemia
*Pca Interpretation
Rate: tachycardiac
Interpretation: abnormal
Heart Rate: 110
Rhythm: sinus tachycardia
*Critical Care Note
Total Time (30-74mins, 75-104mins- exclusive of procedures): Not Applicable
ED Attending Note
-
Portions of this chart may have been created with voice recognition software.� Occasional wrong word or��sound alike� substitutions may have occurred due to the inherent limitations of voice recognition software.
Discharge Plan
Departure
Patient Disposition: Admit
Date of Disposition: 02/06/25
Time of Disposition: 21:46
Admit to: Med/Surg
Presentation/result/management discussed w/ accepting MD/DO: Hospitalist
Patient with high blood pressure during this ER visit?: No
Condition: Good
Discharge Problem:
Hypoxia, Pneumonia
Prescriptions:
No Action
calcium carbonate-vitamin D3 600 mg-5 mcg (200 unit) Tablet
1 tab PO BID
cyanocobalamin (vitamin B-12) 500 mcg Tablet
500 mcg PO BID
pyridoxine (vitamin B6) 100 mg Tablet
100 mg PO BID
cholecalciferol (vitamin D3) [Vitamin D3] 50 mcg (2,000 unit) Tablet
50 mcg PO BID
PreserVision AREDS-2 250-90-40-1 mg Capsule
1 tab PO BID
glucosamine mancia 2KCl-chondroit [Glucosamine-Chondroitin 3X Str] 750-600 mg Tablet
1 tab PO BID
Trelegy Ellipta 200-62.5-25 mcg Blister With Device
1 inh INHALATION R DAILY
lisinopril 10 mg Tablet
5 mg PO HS
albuterol sulfate 90 mcg/actuation Hfa Aerosol Inhaler
2 puff INHALATION R Q6HPRN PRN (Reason: sob)
escitalopram oxalate 10 mg Tablet
10 mg PO HS
Referrals:
Deric Hunt PA [Family Provider, Family Practice]
Interventions
Interventions:
*Risk Screen - Suicide Last Done: 02/06/25 16:23
*General Assessment Last Done: 02/06/25 19:22
*Neglect/Abuse Screening Last Done: 02/06/25 16:23
ED- Cardiac Assessment Last Done: 02/06/25 19:04
ED- Pulmonary Assessment Last Done: 02/06/25 19:04
Discharge Date and Time
Print Language: BOLIVIAN
[2025-02-06] MEDS: DUONEB 3 ML INH (17:31)
[2025-02-06 17:50] LABS: Hematocrit 43.0 % (37.0-47.0); Hemoglobin 14.5 g/dL (12.0-16.0); Mean Corp Hgb Conc. 33.7 g/dL (33.0-37.0); Mean Corpuscular Volume 86.5 fL (81.0-99.0); Nucleated Red Blood Cells % 0 %; Platelet Count 142 10^3/uL (130-400); Red Cell Dist. Width 13.4 % (11.5-14.5)
[2025-02-06 17:52] LABS: D-Dimer 0.85 ug/mlFEU (0.00-0.50)
[2025-02-06 17:55] LABS: ALT (SGPT) 34 U/L (0-35); AST (SGOT) 38 U/L (14-36); Albumin 4.2 g/dl (3.5-5.0); Alkaline Phosphatase 73 U/L (38-126); Blood Urea Nitrogen 20 mg/dl (7-17); Calcium 9.2 mg/dl (8.4-10.2); Carbon Dioxide 28 mmol/L (22-30); Chloride 103 mmol/L (98-107); Estimated Creatinine Clearance 57 ml/min; Glucose 114 mg/dl (70-99); Potassium 4.4 mmol/L (3.5-5.1); Sodium 138 mmol/L (135-145); Total Protein 6.5 g/dl (6.3-8.2); eGFR > 60.00
--- NOTE | 2025-02-06 21:50 | HPS.HSE ---
Addendum entered and electronically signed by Alberto Moctezuma DO 02/06/25 23:21:
Patient seen and examined independently. Agree with findings and plan as set forth by ANGELA Acosta.
Patient is an 84y F with PMH significant for hypertension and COPD who presents to ED complaining of worsening SOB. Patient is followed by Pulmonary and reportedly has baseline hypoxemia (88-92%) and resting tachycardia. Home O2 has reportedly
been discussed in the past - but not yet initiated. Patient states 'moist' cough x several days and increased SOB from baseline. No fevers / chills. No known sick contacts.
Ass:
Pneumonia / Pneumonitis
Sepsis secondary to the above
Hypoxemia - Acute v Chronic
COPD
Benign Hypertension
Anxiety / Depression
Osteoporosis / Vertebral Compression Fractures
Plan:
Admit for further evaluation and treatment.
Unclear that there is significant worsening of hypoxemia - as current levels seem c/w stated baseline.
Cough x several days and CT chest read as 'multifocal pneumonia' with vague opacities seen in RUL base and b/l lower lobes.
Abx for coverage of CAP for now.
Supportive care including O2, nebs, etc.
Would likely benefit from home O2 moving forward - as previously discussed with Pulmonary.
Follow fever curve and monitor for clinical improvement.
Monitor off of systemic steroids for now as no evidence of wheezing, etc.
Continue other usual home medications.
Original Note:
Family Physician
-
Family Physician: CHERYL Soni
Chief Complaint
-
shortness of breath
History of Present Illness
Patient is a 84-year-old female with past medical history significant for hypertension, hyperlipidemia and COPD who presented to [facility] ED for evaluation of shortness of breath. Patient and daughter at bedside assist in HPI. Patient has had increased
shortness of breath at rest today and felt she was having a hard time catching her breath. She reports moist cough for a few days that has been non-productive. Patient reports baseline SpO2 89-9% on room air, no home oxygen. Denies any fever,
chills, chest pain, nausea, vomiting, constipation, diarrhea or urinary symptoms.
Medical History
Past Medical History
Past Medical History: Reports Other
Additional Past Medical History:
hypertension
hyperlipidemia
COPD
depression/anxiety
orthostatic hypotension
osteopenia
hx hyponatremia
Past Surgical History: Reports Other
Additional Past Surgical History:
Bilateral tubal ligation
Tonsillectomy
Social History
Tobacco: Former Smoker (68 years on and off approximately 1 pack/day quit 6 years ago)
Alcohol: None
Drug: None
Personal: Single
Living: Alone (In apartment above her grandson and his partner)
Employment: Retired
Family History
Family History: Not pertinent
Allergies / Home Medications
Allergies reflects when Allergies were last updated in [employer].
Home Medications with original date entered in [employer]
Allergy/Medication List:
Allergies
Allergy/AdvReac Type Severity Reaction Status Date / Time
Penicillins Allergy Rash Verified 02/06/25 16:23
Home Medications
calcium 600 mg (as carbonate)-vitamin D3 5 mcg (200 unit) tablet 1 tab PO BID Supplement 02/25/24
cholecalciferol (vitamin D3) 50 mcg (2,000 unit) tablet (Vitamin D3) 50 mcg PO BID Supplement 02/25/24
cyanocobalamin (vitamin B-12) 500 mcg tablet 500 mcg PO BID Supplement 02/25/24
fluticasone fur. 200 mcg-umeclid 62.5 mcg-vilant 25 mcg inhalat.powder (Trelegy Ellipta) 1 inh inhalation R DAILY Lung/Breathing Issues 02/25/24
glucosamine sulf dipotassium Cl 750 mg-chondroitin sulf 600 mg tablet (Glucosamine-Chondroitin 3X Triple Strength) 1 tab PO BID Supplement 02/25/24
pyridoxine (vitamin B6) 100 mg tablet 100 mg PO BID Supplement 02/25/24
vit C 250 mg-vit E 90 mg-zinc 40 mg-copper 1 [id number]-muhfhr capsule (PreserVision AREDS-2) 1 tab PO BID Supplement 02/25/24
albuterol sulfate 90 mcg/actuation aerosol inhaler 2 puff inhalation R Q6HPRN PRN sob 08/11/24
escitalopram oxalate 10 mg tablet 10 mg PO HS High Cholesterol 08/11/24
lisinopril 10 mg tablet 5 mg PO HS Blood Pressure 08/11/24
Review of Systems
-
History Source: Patient
Constitutional: Reports No Symptoms
EENT: Reports No Symptoms
Respiratory: Reports Cough and Trouble Breathing (shortness of breath )
Cardiac: Reports No Symptoms
Abdomen/GI: Reports No Symptoms
: Reports No Symptoms
Musculoskeletal: Reports No Symptoms
Skin: Reports No Symptoms
Neurological: Reports No Symptoms
Endocrine: Reports No Symptoms
Hematologic/Lymphatic: Reports No Symptoms
Psych: Reports No Symptoms
Physical Exam
Vital Signs
Vital Signs
Temp Pulse Resp BP Pulse Ox
99.4 F 114 26 138/103 89
02/06/25 16:23 02/06/25 21:00 02/06/25 21:00 02/06/25 21:00 02/06/25 21:00
Physical Exam
General: Well Developed, Comfortable and Conversant
HEENT: NormoCephalic, Moist mucous membranes, Atraumatic, Nose Appears Normal, Ears Appear Normal and Hearing Impaired
Respiratory: Clear and Decreased Breath Sounds
Cardiac: S1/S2, Regular Rhythm and Tachycardia
GI: Soft, Non Tender, Non Distended and Normal Bowel Sounds
Musculoskeletal: No Clubbing, No Cyanosis and No Edema
Skin: Warm and IV/Catheter Site
Neuro: Awake
Psych: Calm
Laboratory Results
-
02/06/25 17:25
02/06/25 17:25
Laboratory Results
Total Bilirubin 1.0 mg/dl (0.2-1.3) 02/06/25 17:25
AST 38 U/L (14-36) H 02/06/25 17:25
ALT 34 U/L (0-35) 02/06/25 17:25
Alkaline Phosphatase 73 U/L (38-126) 02/06/25 17:25
Data Reviewed
-
Diagnostic Radiology: Report Reviewed by me (CXR: COPD. Possible mild vascular congestion. No evidence of pneumonia.)
Medical Tests (Nuc Med, Echo, EKG etc): Report Reviewed by me (EKG; SINUS TACHYCARDIA WITH PREMATURE ATRIAL COMPLEXES)
Lab Data: Labs Reviewed by me (WBC 11.6, Neut 85.0)
Impression/Plan
-
IMPRESSION/PLAN:
#sepsis 2/2 pneumonia
#hypoxia
baseline SpO2 89-91% on RA, no home O2
WBC 11.6, Neut 85.0
CXR: COPD. Possible mild vascular congestion. No evidence of pneumonia.
Chest CT: report pending (multifocal pneumonia)
EKG: SINUS TACHYCARDIA WITH PREMATURE ATRIAL COMPLEXES
- Admit to med/surg
- Covid and Influenza swab pending
- IV ceftriaxone and doxycycline
- DuoNeb TID
- Albuterol PRN
- supportive care
#COPD
- continue albuterol HFA PRN
- continue Trelegy
#hypertension
- continue lisinopril
#depression/anxiety
- continue escitalopram
#hyperlipidemia
#orthostatic hypotension
#osteopenia
#hx hyponatremia
Code status: DNR
DVT prophylaxis: Lovenox Sq
[2025-02-06] MEDS: VIBRAMYCIN 100 MG PO (22:03)
[2025-02-06] MEDS: ROCEPHIN 1000 MG IV (22:04)
[2025-02-06 23:18] LABS: COVID-19 Antigen Negative (Negative)
[2025-02-07] VITALS (7 sets, daily range): BP systolic 108–150; BP diastolic 68–101; PULSE 91–105; O2SAT 92; BMI 17.9
[2025-02-07 06:04] LABS: Hematocrit 40.6 % (37.0-47.0); Hemoglobin 13.9 g/dL (12.0-16.0); Mean Corp Hgb Conc. 34.2 g/dL (33.0-37.0); Mean Corpuscular Volume 84.8 fL (81.0-99.0); Platelet Count 147 10^3/uL (130-400); Red Cell Dist. Width 13.3 % (11.5-14.5)
[2025-02-07 06:20] LABS: Blood Urea Nitrogen 15 mg/dl (7-17); Calcium 8.8 mg/dl (8.4-10.2); Carbon Dioxide 26 mmol/L (22-30); Chloride 104 mmol/L (98-107); Estimated Creatinine Clearance 57 ml/min; Glucose 100 mg/dl (70-99); Potassium 3.8 mmol/L (3.5-5.1); Sodium 135 mmol/L (135-145); eGFR > 60.00
--- NOTE | 2025-02-07 07:16 | PTCARENOTE ---
Patient arrived on unit @0205 via stretcher from ED, ambulate to bed with assist x1. Patient AAOX3, forgetful at times c/o 2/10 pain related to headache. Skin assessment completed, oriented to unit, call nunez within reach.
[2025-02-07] MEDS: VENTOLIN NEBULES 2.5 MG INH ×3 (07:38→19:18)
[2025-02-07] MEDS: SPIRIVA RESPIMAT 2.5 MCG 2 PUFF INH (07:48)
[2025-02-07] MEDS: VENTOLIN NEBULES INH (08:21)
[2025-02-07] MEDS: VIBRAMYCIN 100 MG PO ×2 (08:27→20:44)
--- NOTE | 2025-02-07 10:51 | W.PN.HOSP.TC ---
Today's Communication/Plan
-
Monitor blood pressures
Continue antibiotics
PT consult
Assessment / Plan
Assessment / Plan
Gen-AAOx3, NAD
HEENT-NC, AT, anicteric, clear oral mm
Neck-supple
CV-reg, no M, +S1/S2
Lungs-clear B/L
Abd-soft, NT, ND
Ext-no edema
Musculoskeletal-no cyanosis, clubbing
Skin-warm and dry
Neuro-grossly non-focal
Psych-calm, cooperative
Sepsis due to community-acquired pneumonia -continue current antibiotics. Hemodynamically stable, nontoxic. Afebrile this morning, mild leukocytosis. Unfortunately blood cultures not sent.
Chest x-ray does not show infiltrates but CT chest shows small patchy opacities in the bilateral lower lobes with bilateral peribronchial thickening reflecting mild bronchopneumonia. Mild centrilobular emphysema noted.
Acute on chronic hypoxic respiratory failure -due to pneumonia in the setting of chronic lung disease, COPD. Need to assess for home oxygen prior to discharge. Currently on 2 L nasal cannula oxygen, 95%.
Multiple vertebral compression fractures -due to underlying osteoporosis and multiple prior falls.
Ambulatory dysfunction, falls -will need further workup. Discussed in detail with patient to speak further with primary care doctor. Rule out underlying myelopathy or other etiology such as neuropathy. Check orthostatic vitals.
COPD without exacerbation -stable.
Hyperlipidemia
Essential hypertension with hypertensive urgency, POA -blood pressure now improving. At home she takes lisinopril 5 mg nightly. Suspect hypertensive urgency triggered by respiratory failure, sepsis and pneumonia.
Anticipate she will need at least 2 blood pressure meds moving forward given degree of blood pressure elevation.
Anxiety/depression
Underweight
DNR
PT consult
Anticipated Discharge: > 48 hours
Subjective/Interval History
-
Date of Service: February 07, 2025
Patient seen and examined. No complaints.
Objective Data
-
Labs:
Laboratory Results
02/07/25
05:21
WBC 12.1 H
Hgb 13.9
Hct 40.6
Plt Count 147
Sodium 135
Potassium 3.8
Chloride 104
Carbon Dioxide 26
BUN 15
Creatinine 0.6
Glucose 100 H
Calcium 8.8
Vital Signs:
Vital Signs
Temp Pulse Resp BP Pulse Ox
97.7 F 78 17 148/86 95
02/07/25 07:45 02/07/25 07:45 02/07/25 07:45 02/07/25 07:45 02/07/25 10:18
Review of Systems
-
History Source: Patient
All other systems: Reviewed and negative
--- NOTE | 2025-02-07 15:25 | CM ---
Patient seen at bedside
IA completed
spoke with daughter Esthela
Dx: sepsis, pneumonia, hypoxia
Patient lives with grandson in a 2 story home, 6 steps to enter, 1st floor set up bed/bath
daughter lives nearby who also is supportive
PLOF: independent, uses rollator for long distances
DME: Cane, rollator, walker, shower chair, elevated toilet seat
CURRENT with [facility] - will need script at [facility]
reports had been at [facility] in the past & [facility]
Denies insecurities
PT eval rec home PT
on oxygen currently
PCP: Deric Hunt
Pharmacy: [facility]
PLAN: Home, Resume [facility] watch for oxygen needs
[2025-02-07] MEDS: LOVENOX 40 MG SC (17:32)
[2025-02-07] MEDS: ROCEPHIN 1000 MG IV (22:07)
[2025-02-07] MEDS: ZESTRIL 5 MG PO (22:07)
[2025-02-07] MEDS: LEXAPRO 10 MG PO (22:07)
[2025-02-07] MEDS: STERILE WATER FOR INJECTION 10 ML IV (22:08)
[2025-02-08 05:32] VITALS: BMI 18.2
[2025-02-08 07:21] VITALS: BP 132/88
[2025-02-08] MEDS: SPIRIVA RESPIMAT 2.5 MCG 2 PUFF INH (07:23)
[2025-02-08] MEDS: VENTOLIN NEBULES 2.5 MG INH ×2 (07:23→19:26)
[2025-02-08] MEDS: VIBRAMYCIN 100 MG PO ×2 (08:33→20:24)
[2025-02-08 10:42] VITALS: BP 126/76; PULSE 75; O2SAT 98
[2025-02-08 11:13] VITALS: BMI 18.2
--- NOTE | 2025-02-08 12:39 | CM ---
Patient seen at bedside
cont on oxygen
PT had rec HH- the patient daughter stated patient current with [facility]
spoke with [facility] intake - current - stated when d/c fax d/c instructions and script to [phone].
will need script for PT/OT
PLAN: Home, Resume [facility] watch for oxygen needs
[2025-02-08] MEDS: VENTOLIN NEBULES INH (13:39)
--- NOTE | 2025-02-08 14:29 | W.PN.HOSP.TC ---
Addendum entered and electronically signed by Tomás Lorenzo MD 02/08/25 17:44:
Severe protein calorie malnutrition
Original Note:
Today's Communication/Plan
-
wean off O2 for sata above 92
Probable DC tomorrow
Assessment / Plan
Assessment / Plan
84-year-old female with
CT chest-no PE. Small patchy opacities in bilateral lower lobes with bilateral peribronchial thickening favored to reflect a mild bronchopneumonia. Mild centrilobular emphysema. Multiple thoracolumbar compression fractures.
CVS: S1-S2 normal
Chest: CTA B/L
Abdomen: Soft, NT / Bowel sounds present
Extremities: No edema
# Sepsis secondary to community-acquired pneumonia
No blood cultures available
CT chest with small patchy opacities in bilateral lower lobes with bilateral peribronchial thickening reflecting mild bronchopneumonia. Mild centrilobular emphysema
Acute on chronic hypoxic respiratory failure secondary to pneumonia in the setting of COPD
Continue doxycycline and ceftriaxone
Need to assess home oxygen prior to discharge
Try to wean oxygen as tolerated for sats above 92
Continue trilogy Ellipta or equivalent and albuterol or equivalent.
# Hypertension with hypertensive urgency present on admission
Suspect hypertensive urgency triggered by respiratory failure sepsis and pneumonia
Takes lisinopril 5 mg at home-continue and monitor blood pressure
# Multiple vertebral compression fractures due to underlying osteoporosis with multiple prior falls
# Anxiety and depression-continue Lexapro
# Underweight with a BMI of 18.2
# Ambulatory dysfunction-Neg orthostatic vital signs
# Ex-smoker
# DVT prophylaxis-Lovenox
# DNR
Spoke to daughter. She is aware that pt needs to see PCP for Pneumovax if she has not had it already.
Daughter asking about Aquatic therapy PT. Will ask PT about that.
Part of this note was created using voice recognition system. Occasional wrong word or��sound alike� substitutions may have inadvertently occurred due to the inherent limitations of voice recognition software. If noted kindly bring it to my
attention for correction.
Anticipated Discharge: Within 24 hours
Subjective/Interval History
-
Date of Service: February 08, 2025
Objective Data
-
Vital Signs:
Vital Signs
Temp Pulse Resp BP Pulse Ox
97.8 F 71 18 132/88 98
02/08/25 07:21 02/08/25 07:27 02/08/25 07:27 02/08/25 07:21 02/08/25 12:55
I&O
02/07/25 02/08/25 02/09/25
06:59 06:59 06:59
Intake Total 1320 / 1320
Balance 1320 / 1320
[2025-02-08 14:48] VITALS: BP 120/71
--- NOTE | 2025-02-08 15:40 | PN.CDI ---
CDI
- -
CDI:
Physician Documentation Request
Admit Date: 02/06/25 22:50
Dear Doctor,
Please review the following and provide your response in the progress notes.
Clinical Indicators:
Pt admitted with Sepsis due to community-acquired pneumonia.
02/08 Registered Dietitian: ' Consult weight loss..... Po intake reported to be good 100% per nursing.
CBW (02/08) 112lb 9.6oz BMI 18.2 underwt/ht, (02/07) 111lb 2oz, (02/06) 114lb 10.246oz
Weight hx- (08/17) 121lb 9oz, (08/12) 123lb 9.6oz, (08/11) 124lb 1oz; Significant 12lb, 10.7% wt loss over 6 months....
Meets criteria for severe protein caloire malnutrition of chronic illness with >10% wt loss x 6months & prolonged inadequate po intake for >1month.'
Based on the above information and your assessment, which of the following most accurately represents the patient's nutritional status?
Severe Protein Calorie Malnutrition
Other
Bennett Criteria (ACP Hospitalist 2017)
2 or more criteria must be present for either
non severe or severe malnutrition
Note that the criteria differs related to the
presence of an acute or chronic illness
Chronic Illness
Energy Intake Non Severe: <75% for >1 month
Severe: <75% for >1 month
Weight Loss Non Severe: 5% over 1 month
7.5% over 3 months
10% over 6 months
20% over 1 year
Severe: >5% over 1 month
>7.5% over 3 months
>10% over 6 months
>20% over 1 year
Body Fat Non Severe: Mild Loss
Severe: Severe Loss
Muscle Mass Non Severe: Mild Loss
Severe: Severe Loss
Additional criteria that can be used to Determine if Mild or Moderate Malnutrition (Merck Manual 2018)
Use of terms such as suspected, likely, concern for, or probable (associated with a specific diagnosis that is being evaluated, monitored, or treated as if it exists) are acceptable and can be coded in the inpatient setting, when documented at the
time of discharge.
Thank you,
Ruthy Hale RN, BSN
CDI Specialist
[facility]
Please use your independent medical judgment in providing your response.
[2025-02-08 16:52] VITALS: PULSE 78; O2SAT 95
[2025-02-08] MEDS: LOVENOX 40 MG SC (17:18)
[2025-02-08] MEDS: ROCEPHIN 1000 MG IV (22:05)
[2025-02-08] MEDS: LEXAPRO 10 MG PO (22:05)
[2025-02-08] MEDS: STERILE WATER FOR INJECTION 10 ML IV (22:06)
[2025-02-08] MEDS: ZESTRIL 5 MG PO (22:06)
[2025-02-08 23:35] VITALS: BP 107/68
[2025-02-09 06:00] VITALS: BMI 18.3
[2025-02-09] MEDS: VENTOLIN NEBULES 2.5 MG INH (07:14)
[2025-02-09] MEDS: SPIRIVA RESPIMAT 2.5 MCG 2 PUFF INH (07:14)
[2025-02-09 07:18] LABS: Hematocrit 37.1 % (37.0-47.0); Hemoglobin 12.5 g/dL (12.0-16.0); Mean Corp Hgb Conc. 33.7 g/dL (33.0-37.0); Mean Corpuscular Volume 86.9 fL (81.0-99.0); Platelet Count 162 10^3/uL (130-400); Red Cell Dist. Width 13.3 % (11.5-14.5)
[2025-02-09 07:47] LABS: Blood Urea Nitrogen 22 mg/dl (7-17); Calcium 8.5 mg/dl (8.4-10.2); Carbon Dioxide 28 mmol/L (22-30); Chloride 106 mmol/L (98-107); Estimated Creatinine Clearance 49 ml/min; Glucose 82 mg/dl (70-99); Potassium 4.2 mmol/L (3.5-5.1); Sodium 138 mmol/L (135-145); eGFR > 60.00
[2025-02-09 08:02] VITALS: BP 150/94
[2025-02-09] MEDS: VIBRAMYCIN 100 MG PO (08:39)
[2025-02-09] MEDS: SYMBICORT 160/4.5 MCG INHALER 2 PUFF INH (10:53)
[2025-02-09] MEDS: CEFTIN 500 MG PO (11:52)
[2025-02-09] MEDS: MUCINEX 600 MG PO (12:31)
--- NOTE | 2025-02-09 13:17 | CM ---
Received consult for VN. Spoke with patient who deferred to her daughter as she is forgetful. Placed a call to patient's daughter, Esthela, who stated that patient has been seeing [facility] re[facility] and she would like for them to return after discharge.
Reviewed IMM. It is signed and on chart. Referral made to [facility].
Plan: Case management will continue to follow and assist with discharge planning. Home with VN through [facility].
--- NOTE | 2025-02-09 13:31 | W.PN.HOSP.TC ---
Today's Communication/Plan
-
Discharge
Will D/W Case management re plan.
Assessment / Plan
Assessment / Plan
84-year-old female with
CT chest-no PE. Small patchy opacities in bilateral lower lobes with bilateral peribronchial thickening favored to reflect a mild bronchopneumonia. Mild centrilobular emphysema. Multiple thoracolumbar compression fractures.
CVS: S1-S2 normal
Chest: CTA B/L, diminished
Abdomen: Soft, NT / Bowel sounds present
Extremities: No edema
# Sepsis secondary to community-acquired pneumonia
No blood cultures available
CT chest with small patchy opacities in bilateral lower lobes with bilateral peribronchial thickening reflecting mild bronchopneumonia. Mild centrilobular emphysema
Acute hypoxic respiratory insufficiency
Continue doxycycline and ceftriaxone
Sats 90 with ambulation.
Off oxygen
Continue trilogy Ellipta or equivalent and albuterol or equivalent.
# Hypertension with hypertensive urgency present on admission
Suspect hypertensive urgency triggered by respiratory failure sepsis and pneumonia
Takes lisinopril 5 mg at home-continue and monitor blood pressure
# Multiple vertebral compression fractures due to underlying osteoporosis with multiple prior falls
# Anxiety and depression-continue Lexapro
# Underweight with a BMI of 18.2
# Ambulatory dysfunction-Neg orthostatic vital signs
# Ex-smoker
# DVT prophylaxis-Lovenox
# DNR
Spoke to daughter. She is aware that pt needs to see PCP for Pneumovax if she has not had it already.
Daughter asking about Aquatic therapy PT.
Discussed with inpatient PT. Outpatient PT should be able to give simple exercises which can be done in the fall. But aquatic therapy may not be possible.
Will also discuss with case management to discuss with VN
Part of this note was created using voice recognition system. Occasional wrong word or��sound alike� substitutions may have inadvertently occurred due to the inherent limitations of voice recognition software. If noted kindly bring it to my
attention for correction.
Anticipated Discharge: Today
Subjective/Interval History
-
Date of Service: February 09, 2025
Objective Data
-
Labs:
Laboratory Results
02/09/25
06:35
WBC 7.0
Hgb 12.5
Hct 37.1
Plt Count 162
Sodium 138
Potassium 4.2
Chloride 106
Carbon Dioxide 28
BUN 22 H
Creatinine 0.7
Glucose 82
Calcium 8.5
Vital Signs:
Vital Signs
Temp Pulse Resp BP Pulse Ox
97.6 F 90 16 150/94 96
02/09/25 08:02 02/09/25 08:02 02/09/25 08:02 02/09/25 08:02 02/09/25 08:02
I&O
02/08/25 02/09/25 02/10/25
06:59 06:59 06:59
Intake Total 1320 / 1320 960 / 960 240 / 240
Balance 1320 / 1320 960 / 960 240 / 240
--- NOTE | 2025-02-09 15:06 | W.DS.TRANS ---
Addendum entered and electronically signed by Tomás Lorenzo MD 02/09/25 17:05:
Dictation- [id number]
Original Note:
DC Summary - Grounds [employer]er
-
Discharge Instructions:
Discharge Diagnosis/Procedures Pneumonia
Hypertension
Vertebral compression fractures
Protein calorie malnutrition
Diet As tolerated
Activity As tolerated
Driving Restrictions As prior to admission
Others Tests Chest x-ray 4 weeks, lung function testing as
outpatient
Other Services VN
Instructions:
Stand-Alone Forms:
Changes to Home Medications: Yes
Discharge Medications:
DC Medications w/original date entered in [employer]
calcium 600 mg (as carbonate)-vitamin D3 5 mcg (200 unit) tablet 1 tab PO BID Supplement 02/25/24
cholecalciferol (vitamin D3) 50 mcg (2,000 unit) tablet (Vitamin D3) 50 mcg PO BID Supplement 02/25/24
cyanocobalamin (vitamin B-12) 500 mcg tablet 500 mcg PO BID Supplement 02/25/24
fluticasone fur. 200 mcg-umeclid 62.5 mcg-vilant 25 mcg inhalat.powder (Trelegy Ellipta) 1 inh inhalation R DAILY Lung/Breathing Issues 02/25/24
glucosamine sulf dipotassium Cl 750 mg-chondroitin sulf 600 mg tablet (Glucosamine-Chondroitin 3X Triple Strength) 1 tab PO BID Supplement 02/25/24
pyridoxine (vitamin B6) 100 mg tablet 100 mg PO BID Supplement 02/25/24
vit C 250 mg-vit E 90 mg-zinc 40 mg-copper 1 [id number] capsule (PreserVision AREDS-2) 1 tab PO BID Supplement 02/25/24
albuterol sulfate 90 mcg/actuation aerosol inhaler 2 puff inhalation R [id number] PRN sob 08/11/24
lisinopril 10 mg tablet 5 mg PO HS Blood Pressure 08/11/24
cefuroxime axetil 500 mg tablet 500 mg PO BID Lung/breathing issues #8 tabs 02/09/25
doxycycline hyclate 100 mg capsule 100 mg PO BID Lung/breathing issues #8 caps 02/09/25
escitalopram oxalate 10 mg tablet 10 mg PO HS Depression #0 tabs 02/09/25
guaifenesin 600 mg tablet, extended release 12 hr (Mucinex) 600 mg PO BID Lung/breathing issues #20 tabs 02/09/25
Home Medication Changes
new
Guaifenesin
Doxycycline
Cefuroxime or new
Pending Results: No
[2025-02-09 15:12] VITALS: BP 123/78
== END 2025-02-09 15:34 | disposition home health service (06) | DRG 871 ==
LOC: 3 WEST ACU 22:50
PROVIDERS: Nurse Practitioner Family; ADMITTING PHYSICIAN Hospitalist; ATTENDING PHYSICIAN Hospitalist; EMERGENCY PHYSICIAN Emergency Medicine; FAMILY PHYSICIAN Physician Assistant
DX: A41.9 Sepsis, unspecified organism (principal); E43 Unspecified severe protein-calorie malnutrition; J96.21 Acute and chronic respiratory failure with hypoxia; J18.0 Bronchopneumonia, unspecified organism; Z68.1 Body mass index [BMI] 19.9 or less, adult; J98.4 Other disorders of lung; I10 Essential (primary) hypertension; F32.A Depression, unspecified; F41.9 Anxiety disorder, unspecified; M81.0 Age-related osteoporosis without current pathological fracture; Z87.891 Personal history of nicotine dependence; E78.5 Hyperlipidemia, unspecified; Z11.52 Encounter for screening for COVID-19
CPT/HCPCS: 71046; 71275; 80048; 80053; 83880; 85025; 85027; 85379; 87502; 87811; 93005; 94640; 96374; 97116; 97162; 97166; 99285; Q9967